=== PATIENT | female | born 2000 | race Caucasian/White ===

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

== ENCOUNTER → 2020-03-08 | Outpatient (CLI) | payer OTHER ==
--- NOTE | 2020-03-08 15:25 | US ---
EXAMINATION TYPE: Ultrasound OB <= 14 week transvaginal DATE OF EXAM: 03/08/2020 2:59 PM COMPARISON: NONE CLINICAL HISTORY: 19-year-old female O76 absent heart tones. EXAM PERFORMED: Transvaginal (TV) and Transabdominal (TA) FINDINGS: EXAM MEASUREMENTS: GESTATIONAL AGE / DATING Physician Established: (10 weeks/3 days) EDC: 10/01/2020 Dates by LMP: Unknown Dates by First Scan: This is 1st scan Dates by Current Scan for: (10 weeks/2 days) EDC: 10/02/2020 MATERNAL ANATOMY Uterus: 10.8 x 6.9 x 7.9cm, retroverted Right Ovary: 3.2 x 2.1 x 2.4cm Left Ovary: 3.0 x 2.0 x 1.8cm Post CDS / Adnexa: wnl Presence of free fluid: small amount of free fluid Presence of corpus luteal cyst: not seen Presence of subchorionic bleed: no GESTATION / SURVEY CRL: 3.4cm (10 weeks/2 days). The expanding amnion is noted. Yolk Sac (normal less than 6mm): 4.5mm Heart Rate: 172 bpm, upper limits of normal Rhythm: Normal IUP: Viable IUP Date of LMP: Unknown Beta HcG (if available): Not available at time of exam IMPRESSION: 1. Single live uterine with physician established gestational age of 10 weeks 3 days. Curre nt ultrasound biometry is concordant (10 weeks 2 days) by CRL. 2. Consider short interval follow-up given heart rate at the upper limits of normal (172 BPM). 3. Complete survey recommended at 18-20 weeks.
== END | disposition home or self-care (01) ==
LOC: RADUSWWP 14:14
PROVIDERS: ATTEND Obstetrics & Gynecology
DX: O76 Abnormality in fetal heart rate and rhythm complicating labor and delivery (principal); Z3A.10 10 weeks gestation of pregnancy
CPT/HCPCS: 76801; 76817

== ENCOUNTER 2020-03-20 16:43 | Emergency (ER) | payer OTHER ==
--- NOTE | 2020-03-20 17:53 | ED ---
Female Urogenital HPI - General Chief complaint: Vaginal Bleeding Stated complaint: 11 wks preg/vaginal bleeding Source: patient Mode of arrival: ambulatory Limitations: no limitations - History of Present Illness Initial comments: Patient is a 19-year-old female presenting to the emergency Department with complaints of vaginal bleeding that started today. Patient is currently 11-12 weeks . . FISH HATCHERY MANAGER is Dr. Malone. Patient denies any abdominal pain, no abdominal cramping. She states she's been having to wear a pad secondary to the bleeding. She states it is right red in nature. She denies any recent fever or chills. She states she did get treated for UTI a few weeks ago but feels like it cleared up. She denies any chest pain or shortness of breath, no cough. She has no further complaints at this time. On arrival to the ER, her vital signs are stable. Last Menstrual Period: 12/21/19 - Related Data Home Medications Medication Instructions Recorded Confirmed Acetaminophen Tab [Tylenol] 650 mg PO Q4H PRN 03/20/20 03/20/20 Albuterol Sulfate [Proair Hfa] 2 puff INHALATION RT-Q6H PRN 03/20/20 03/20/20 Gummy 1 tab PO BID 03/20/20 03/20/20 Previous Rx's Medication Instructions Recorded Cephalexin [Keflex] 500 mg PO BID 5 Days #10 cap 03/20/20 Allergies Allergy/AdvReac Type Severity Reaction Status Date / Time divalproex sodium Allergy Anaphylaxis Verified 03/20/20 18:29 [From Depakote] Review of Systems ROS Statement: Those systems with pertinent positive or pertinent negative responses have been documented in the HPI. ROS Other: All systems not noted in ROS Statement are negative. Past Medical History Past Medical History: No Reported History Additional Past Medical History / Comment(s): bipolar disorder, ADHD, OCD History of Any Multi-Drug Resistant Organisms: None Reported Past Surgical History: Adenoidectomy, Ear Surgery, Tonsillectomy Past Anesthesia/Blood Transfusion Reactions: No Reported Reaction Past Psychological History: ADD/ADHD, Bipolar Smoking Status: Never smoker Past Alcohol Use History: None Reported Past Drug Use History: None Reported General Exam - General Exam Comments Initial Comments: GENERAL: Patient is well-developed and well-nourished. Patient is nontoxic and in no acute distress. HEAD: Atraumatic, normocephalic. EYES: Pupils equal round and reactive to light, extraocular movements intact, sclera anicteric, conjunctiva are normal. Eyelids were unremarkable. ENT: TMs normal, nares patent, oropharynx clear without exudates. Moist mucous membranes. NECK: Normal range of motion, supple without lymphadenopathy or JVD. LUNGS: Unlabored respirations. Breath sounds clear to auscultation bilaterally and equal. No wheezes rales or rhonchi. HEART: Regular rate and rhythm without murmurs, rubs or gallops. ABDOMEN: Soft, nontender, normoactive bowel sounds. No guarding, no rebound. No masses appreciated. MUSCULOSKELETAL: Normal extremities with adequate strength and normal range of motion, no pitting or edema. No clubbing or cyanosis. NEUROLOGICAL: Patient is alert and oriented x 3. Motor and sensory are also intact. Cranial nerves II through XII grossly intact. Symmetrical smile. Normal speech, normal gait. PSYCH: Normal mood, normal affect. SKIN: Warm, Dry, normal turgor, no rashes or lesions noted. Limitations: no limitations External exam: Present: normal external exam Speculum exam: Present: vaginal bleeding (Very minimal blood present in the vagina, no active bleeding.) By manual exam: Present: normal by manual exam Course Vital Signs 03/20/20 16:48 Temperature 97.9 F Pulse Rate 102 H Respiratory 20 Rate Blood Pressure 129/69 O2 Sat by Pulse 100 Oximetry Medical Decision Making - Medical Decision Making Patient is a 19-year-old female, currently 11-12 weeks , presenting with some mild vaginal bleeding that started today. , FISH HATCHERY MANAGER is Dr. Malone. No abdominal pain or cramping. No fever or chills. Her vital signs are stable. On exam, she does have some very mild amount of blood in the vaginal vault, no active bleeding. Urine shows 2+ ketones, large amount of blood, 59 WBCs, large amount leukocyte esterase and rare bacteria. Urine culture is pending. Ultrasound today shows gestational age is 12 weeks, no complicating process seen, heart rate is normal at 158. Patient's blood type is A+. I discussed these findings with the patient. She'll be started on Keflex for UTI. Patient is stable for discharge. She'll follow-up with her FISH HATCHERY MANAGER. Patient is in agreement with this plan of care. Case discussed with Dr. Sher. - Lab Data Lab Results 03/20/20 03/20/20 Range/Units 17:50 17:50 Urine Color Yellow Urine Appearance Cloudy H (Clear) Urine pH 6.0 (5.0-8.0) Ur Specific [place] 1.038 H (1.001-1.035) Urine Protein 1+ H (Negative) Urine Glucose (UA) Negative (Negative) Urine Ketones 2+ H (Negative) Urine Blood Large H (Negative) Urine Nitrite Negative (Negative) Urine Bilirubin Negative (Negative) Urine Urobilinogen <2.0 (<2.0) mg/dL Ur Leukocyte Esterase Large H (Negative) Urine RBC >182 H (0-5) /hpf Urine WBC 59 H (0-5) /hpf Ur Squamous Epith Cells 3 (0-4) /hpf Urine Bacteria Rare H (None) /hpf Urine Mucus Many H (None) /hpf Blood Type A Positive Blood Type Recheck No Previous Record Bld Type Recheck Status [facility] ONLY Disposition Clinical Impression: Vaginal bleeding during , UTI (urinary tract infection) during Disposition: HOME SELF-CARE Condition: Stable Instructions (If sedation given, give patient instructions): Urinary Tract Infection in (ED) Additional Instructions: Please return to the Emergency Department if symptoms worsen or any other concerns. Take antibiotic as prescribed. Finish entire course. Please be sure to drink plenty of fluids. Follow-up with your FISH HATCHERY MANAGER. Prescriptions: Cephalexin [Keflex] 500 mg PO BID 5 Days #10 cap Is patient prescribed a controlled substance at d/c from ED?: No Referrals: Arian Menard DO [Primary Care Provider] - 1-2 days Rob Malone DO [Doctor of Osteopathic Medicine] - 1-2 days
[2020-03-20 18:26] LABS: Appearance,Urine Cloudy (Clear); Bacteria,Urine Rare /hpf; Bilirubin,Urine Negative (Negative); Blood,Urine Large (Negative); Color,Urine Yellow; Glucose,Urine (UA) Negative (Negative); Ketones,Urine 2+ (Negative); Leukocyte Esterase,Urine Large (Negative); Mucus,Urine Many /hpf; Nitrite,Urine Negative (Negative); Protein,Urine 1+ (Negative); RBC,Urine >182 /hpf (0-5); Specific Gravity,Urine 1.038 (1.001-1.035); Squamous Epithelial Cell,Urine 3 /hpf (0-4); Urobilinogen,Urine <2.0 mg/dL (<2.0); WBC,Urine 59 /hpf (0-5)
--- NOTE | 2020-03-20 18:50 | US ---
EXAMINATION TYPE: Transabdominal DATE OF EXAM: 03/20/2020 6:39 PM COMPARISON: Recent US CLINICAL HISTORY: vaginal bleeding. Pt states moderate vaginal bleeding that has since lightened up/ Denies pain EXAM PERFORMED: Transabdominal (TA) EXAM MEASUREMENTS: GESTATIONAL AGE / DATING Physician Established: (12 weeks/1 days) EDC: 10/01/2020 Dates by LMP: Unknown Dates by First Scan: (12 weeks/0 days) EDC: 10/02/2020 Dates by Current Scan for: (12 weeks/0 days) EDC: 10/02/2020 MATERNAL ANATOMY Uterus: 11.5 x 7.2 x 8.9 cm Right Ovary: Obscured by overlying bowel gas, appeared wnl on recent previous Left Ovary: Obscured by overlying bowel gas, appeared wnl on recent previous Post CDS / Adnexa: wnl Presence of free fluid: No Presence of subchorionic bleed: No GESTATION / SURVEY CRL: 5.4 cm (12 weeks/0 days) MSD: wnl Heart Rate: 158 bpm Rhythm: Normal IUP: Viable IUP Single, viable IUP/ No abnormality visualized at this time IMPRESSION: The ultrasound gestational age is 12 weeks. No complicating process seen.
[2020-03-20] MEDS ORDERED: CEPHALEXIN 500 MG CAP PO STA (19:00)
[2020-03-20 19:34] VITALS: BP 118/71; PULSE 87; RESP 18; TEMP 98.2
== END 2020-03-20 19:30 | disposition home or self-care (01) ==
LOC: EC 16:43
DX: O20.9 Hemorrhage in early pregnancy, unspecified (principal); O23.41 Unspecified infection of urinary tract in pregnancy, first trimester; Z88.8 Allergy status to other drugs, medicaments and biological substances; Z3A.12 12 weeks gestation of pregnancy; Z90.89 Acquired absence of other organs
CPT/HCPCS: 76801; 81001; 86900; 86901; 87086; 99284

== ENCOUNTER 2020-07-04 12:09 | Outpatient (CLI) | payer OTHER ==
[2020-07-04] MEDS ORDERED: ONDANSETRON 4 MG/2 ML VIAL IVP STA (12:54)
[2020-07-04] MEDS ORDERED: SODIUM CHLORIDE 0.9% 1,000 ML IV ONE (12:54)
[2020-07-04 13:27] LABS: Amorphous Sediment,Urine Occasional /hpf; Appearance,Urine Cloudy (Clear); Bacteria,Urine Many /hpf; Bilirubin,Urine Negative (Negative); Blood,Urine Negative (Negative); Color,Urine Yellow; Glucose,Urine (UA) Negative (Negative); Ketones,Urine Negative (Negative); Leukocyte Esterase,Urine Large (Negative); Mucus,Urine Rare /hpf; Nitrite,Urine Negative (Negative); Protein,Urine Trace (Negative); Specific Gravity,Urine 1.022 (1.001-1.035); Squamous Epithelial Cell,Urine 16 /hpf (0-4); Urobilinogen,Urine <2.0 mg/dL (<2.0); WBC,Urine 4 /hpf (0-5)
[2020-07-04 13:57] VITALS: BP 120/64; PULSE 81; RESP 18; TEMP 98.6
--- NOTE | 2020-07-20 08:09 | P.MSEPDOC ---
Presenting Problems - Arrival Data Date of Arrival on Unit: 07/04/20 Time of Arrival on Unit: 12:09 Mode of Transport: Ambulatory - Complaint OB-Reason for Admission/Chief Complaint: Acute Nausea/Vomiting Comment: pt has been vomiting and nauseous for the last week, Medical History - Information : 1 Para: 0 Term: 0 : 0 Abortions: Spontaneous or Elective: 0 Number of Living Children: 0 - Gestational Age Gestational Age by LIS (wks/days): 27 Weeks and 2 Days - History Complications: Smoker Review of Systems - Review of Systems Constitutional: No problems Breast: No problems ENT: No problems Cardiovascular: No problems Respiratory: No problems Gastrointestinal: No problems Genitourinary: No problems Musculoskeletal: No problems Neurological: No problems Skin: No problems Vital Signs - Temperature Temperature: 98.6 F Temperature Source: Oral - Pulse Left Brachial Pulse Rate: 81 Pulse Assessment Method: Automatic Cuff - Respirations Respiratory Rate: 18 Oxygen Delivery Method: Room Air - Blood Pressure Right Arm Blood Pressure: 120/64 Blood Pressure Mean: 82 Blood Pressure Source: Automatic Cuff Medical Screen Scoring (Pre) - Cervical Exam Dilation: Exam Deferred Effacement: Exam Deferred Membranes: Intact - Uterine Contractions Frequency: N/A Duration: N/A Intensity: N/A - Maternal Vital Signs Maternal Temperature: N/A Maternal Blood Pressure: N/A Signs of Preeclampsia: N/A Maternal Respirations: N/A - Maternal Trauma Maternal Trauma: N/A - Assessment - Baby A Baseline FHR: 130 Heart Rate - NICHD Category: Category I (Normal) = 0 Position: N/A Station: N/A - Total Score - Baby A Total Score - Baby A: 0 - Total Score - Baby B Total Score - Baby B: 0 - Total Score - Baby C Total Score - Baby C: 0 - Level of Risk - Baby A Level of Risk - Baby A: Low (0-5) - Level of Risk - Baby B Level of Risk - Baby B: Low (0-5) - Level of Risk - Baby C Level of Risk - Baby C: Low (0-5) Physician Notification (Pre) - Physician Notified Physician Notified Date: 07/04/20 Physician Notified Time: 13:30 New Order Received: Yes - Notification Comment Comment: ua was obtained, culture ordered, 1 liter of normal saline given, and one dose of zofran, pt discharged home with instructions to follow up with Dr. Malone at [facility] on the 21 of July, small frequent sips of fluid and small frequent meals to help with nausea at home Disposition - Disposition OB Disposition: Triage, Discharge to home, Written follow up instructions reviewed Discharge Date: 07/04/20 Discharge Time: 13:49 I agree with the RN Medical Screening Exam: Yes Case reviewed; plan agreed upon as documented in EMR&OBIX.: Yes Diagnosis: LATE VOMITING OF
== END 2020-07-04 13:49 | disposition home or self-care (01) ==
LOC: FBPOP 12:09
PROVIDERS: ATTEND Obstetrics & Gynecology
DX: O21.2 Late vomiting of pregnancy (principal); O99.332 Smoking (tobacco) complicating pregnancy, second trimester; F17.200 Nicotine dependence, unspecified, uncomplicated; Z3A.27 27 weeks gestation of pregnancy; Z88.8 Allergy status to other drugs, medicaments and biological substances
CPT/HCPCS: 96361; 96374; 81001; 87086; G0463; J2405; 99214

== ENCOUNTER 2020-07-16 21:27 | Outpatient (CLI) | payer OTHER ==
[2020-07-16 21:44] VITALS: BP 122/70; PULSE 93; RESP 16; TEMP 98
[2020-07-16 22:55] LABS: Appearance,Urine Cloudy (Clear); Bacteria,Urine Occasional /hpf; Bilirubin,Urine Negative (Negative); Blood,Urine Negative (Negative); Color,Urine Yellow; Glucose,Urine (UA) Negative (Negative); Hyaline Casts,Urine 1 /lpf (0-2); Ketones,Urine Negative (Negative); Leukocyte Esterase,Urine Large (Negative); Mucus,Urine Few /hpf; Nitrite,Urine Negative (Negative); Protein,Urine Trace (Negative); RBC,Urine 1 /hpf (0-5); Specific Gravity,Urine 1.023 (1.001-1.035); Squamous Epithelial Cell,Urine 5 /hpf (0-4); Urobilinogen,Urine <2.0 mg/dL (<2.0); WBC,Urine 3 /hpf (0-5)
--- NOTE | 2020-07-19 08:33 | P.MSEPDOC ---
Presenting Problems - Arrival Data Date of Arrival on Unit: 07/16/20 Time of Arrival on Unit: 21:27 Mode of Transport: Ambulatory - Complaint OB-Reason for Admission/Chief Complaint: Pain Comment: Patient is having cramping and pink mucous discharge. Patient brought photos Medical History - Information : 1 Para: 0 Term: 0 : 0 Abortions: Spontaneous or Elective: 0 Number of Living Children: 0 - Gestational Age Gestational Age by LIS (wks/days): 29 Weeks and 0 Days Review of Systems - Review of Systems Constitutional: No problems Breast: No problems ENT: No problems Cardiovascular: No problems Respiratory: No problems Gastrointestinal: No problems Genitourinary: No problems Musculoskeletal: No problems Neurological: No problems Skin: No problems Vital Signs - Temperature Temperature: 98.0 F Temperature Source: Oral - Pulse Right Brachial Pulse Rate: 93 Pulse Assessment Method: Automatic Cuff - Respirations Respiratory Rate: 16 Oxygen Delivery Method: Room Air O2 Sat by Pulse Oximetry: 99 - Blood Pressure Right Arm Blood Pressure: 122/70 Blood Pressure Mean: 87 Blood Pressure Source: Automatic Cuff Medical Screen Scoring (Pre) - Cervical Exam Dilation: 0 cm = 0 Membranes: Intact - Uterine Contractions Frequency: N/A Duration: N/A Intensity: N/A - Maternal Vital Signs Maternal Temperature: N/A Maternal Blood Pressure: N/A Signs of Preeclampsia: N/A Maternal Respirations: N/A - Maternal Trauma Maternal Trauma: N/A - Assessment - Baby A Baseline FHR: 135 Heart Rate - NICHD Category: Category I (Normal) = 0 NST: Reactive - Total Score - Baby A Total Score - Baby A: 0 - Total Score - Baby B Total Score - Baby B: 0 - Total Score - Baby C Total Score - Baby C: 0 - Level of Risk - Baby A Level of Risk - Baby A: Low (0-5) - Level of Risk - Baby B Level of Risk - Baby B: Low (0-5) - Level of Risk - Baby C Level of Risk - Baby C: Low (0-5) Physician Notification (Pre) - Physician Notified Physician Notified Date: 07/16/20 Physician Notified Time: 22:04 New Order Received: Yes - Notification Comment Comment: RN spoke with Dr. Gates. RN reported that patient came in with cramping and. pictures of what looks like pink tinged mucous on her underwear that she states happened earlier in the day. RN did a sterile vaginal exam and patient was closed and thick. FFNwas collected. Reactive NST and no contractions on the monitor. Dr. Gates states FFN does not need to be sent but she would like a UA collected and oral hydration. RN reported UA results to Dr. Gates. Dr. Gates states that patient may be. discharged with instructions to follow up with Dr. Malone. Patient advised to stay. hydrated and rest. Patient educated on round ligament pain and kick counts. Disposition - Disposition OB Disposition: Discharge to home Discharge Date: 07/16/20 Discharge Time: 23:30 I agree with the RN Medical Screening Exam: Yes Case reviewed; plan agreed upon as documented in EMR&OBIX.: Yes Diagnosis: SPOTTING COMPLICATING , THIRD TRIMESTER
== END 2020-07-16 23:30 | disposition home or self-care (01) ==
LOC: FBPOP 21:27
PROVIDERS: ATTEND Obstetrics & Gynecology
DX: O26.853 Spotting complicating pregnancy, third trimester (principal); Z3A.29 29 weeks gestation of pregnancy; Z88.8 Allergy status to other drugs, medicaments and biological substances
CPT/HCPCS: 59025; 81001; G0463; 99213

== ENCOUNTER 2020-08-06 12:19 | Outpatient (CLI) | payer OTHER ==
--- NOTE | 2020-08-06 13:59 | US ---
EXAMINATION TYPE: US OB >= 14 wk fetus DATE OF EXAM: 08/06/2020 COMPARISON: US CLINICAL HISTORY: 32 weeks, ?water broke. RADHA/EFW Negative amni sure per RN; ; smokes marijuana i rregularly TECHNIQUE: Transabdominal (TA) GESTATIONAL AGE / DATING Physician Established: (32 weeks/0 days) EDC: 10/01/2020 Dates by LMP: unknown Dates by First Scan: ( 31weeks/6 days) EDC: 10/02/2020 Dates by Current Scan: (31 weeks/4 days) EDC: 10/04/2020 Beta HCG (if available): NA SURVEY IUP: Single PLACENTA: Anterior PREVIA: No Previa RADHA: 14.7 cm Normal CERVICAL LENGTH (transabdominal: norm > 3.0cm): 4.2 cm BIOMETRY PRESENTATION: Vertex LIE: Longitudinal BPD: 8.10 cm 32 weeks / 4 days HC: 29.27 cm 32 weeks / 2 days AC: 27.20 cm 31 weeks / 2 days FL: 6.08 cm 31 weeks / 4 days ESTIMATED WEIGHT IN GRAMS: 1796.0 grams ESTIMATED WEIGHT IN LBS/OZ: 3 lbs. 15 oz. WEIGHT PERCENTAGE BASED ON ESTABLISHED DATES: 26.3% HC/AC: 1.08 Normal FL/AC: 22.35 Normal HEART RATE: 130 bpm RHYTHM: Normal Single, live IUP,(31 weeks/4 days, EDC: 10/04/2020, HR 130bpm. anatomy assessment is not performed. IMPRESSION: Viable 31 week 4 day with a heart rate of 130 bpm. RADHA of 14.1 cm in EFW of 3 lbs. 15 oz.
[2020-08-06 14:10] VITALS: BP 115/59; PULSE 84; RESP 16; TEMP 97.1
--- NOTE | 2020-08-10 07:43 | P.MSEPDOC ---
Presenting Problems - Arrival Data Date of Arrival on Unit: 08/06/20 Time of Arrival on Unit: 12:20 Mode of Transport: Ambulatory - Complaint OB-Reason for Admission/Chief Complaint: Rule Out PROM Comment: leaking since sunday. sent from office with orders Medical History - Information : 4 Para: 0 Term: 0 : 0 Abortions: Spontaneous or Elective: 3 Number of Living Children: 0 - Gestational Age Gestational Age by LIS (wks/days): 32 Weeks and 0 Days - History Complications: Other Review of Systems - Review of Systems Constitutional: No problems Breast: No problems ENT: No problems Cardiovascular: No problems Respiratory: No problems Gastrointestinal: No problems Genitourinary: No problems Musculoskeletal: No problems Neurological: No problems Skin: No problems Vital Signs - Temperature Temperature: 97.1 F Temperature Source: Temporal Artery Scan - Pulse Right Radial Pulse Rate: 84 Pulse Assessment Method: Automatic Cuff - Respirations Respiratory Rate: 16 Oxygen Delivery Method: Room Air - Blood Pressure Right Arm Blood Pressure: 115/59 Blood Pressure Mean: 77 Blood Pressure Source: Automatic Cuff Medical Screen Scoring - Cervical Exam Membranes: Intact - Uterine Contractions Frequency From (mins): 0 - Assessment - Baby A Baseline FHR: 130 Heart Rate - NICHD Category: Category I (Normal) NST: Reactive Physician Notification - Physician Notified Physician Notified Date: 08/06/20 Physician Notified Time: 14:55 Physician: Rob Malone Maternal Triage Index - Maternal Triage Index Presenting for scheduled procedure w/no complaint: No - Stat/Priority 1 Stat Priority 1: No - Urgent/Priority 2 Urgent Priority 2: No - Prompt/Priority 3 Prompt Priority 3: No - Non-Urgent/Priority 4 Non-Urgent Priority 4: No - Scheduled/Requesting Priority 5 Scheduled/Requesting Priority 5: Yes Criteria Met for Priority 5: sent from office with orders Disposition - Disposition OB Disposition: Discharge to home, Written follow up instructions reviewed Discharge Date: 08/06/20 Discharge Time: 13:55 I agree with the RN Medical Screening Exam: Yes Case reviewed; plan agreed upon as documented in EMR&OBIX.: Yes Diagnosis: FALSE LABOR BEFORE 37 COMPLETED WEEKS OF GEST, THIRD TRI
== END 2020-08-06 14:00 | disposition home or self-care (01) ==
LOC: FBPOP 12:19
PROVIDERS: ATTEND Obstetrics & Gynecology
DX: O47.03 False labor before 37 completed weeks of gestation, third trimester (principal); Z3A.31 31 weeks gestation of pregnancy
CPT/HCPCS: 59025; 76805; 84112

== ENCOUNTER 2020-08-13 22:10 | Outpatient (CLI) | payer OTHER ==
[2020-08-13 23:26] LABS: Appearance,Urine Cloudy (Clear); Bilirubin,Urine Negative (Negative); Blood,Urine Negative (Negative); Color,Urine Yellow; Glucose,Urine (UA) Negative (Negative); Ketones,Urine Negative (Negative); Leukocyte Esterase,Urine Large (Negative); Mucus,Urine Occasional /hpf; Nitrite,Urine Negative (Negative); Protein,Urine 1+ (Negative); RBC,Urine 1 /hpf (0-5); Specific Gravity,Urine 1.032 (1.001-1.035); Squamous Epithelial Cell,Urine 6 /hpf (0-4); WBC,Urine 6 /hpf (0-5)
[2020-08-13 23:35] VITALS: BP 130/63; PULSE 91; RESP 16; TEMP 96.9
--- NOTE | 2020-08-14 07:27 | P.MSEPDOC ---
Presenting Problems - Arrival Data Date of Arrival on Unit: 08/13/20 Time of Arrival on Unit: 22:10 Mode of Transport: Ambulatory - Complaint OB-Reason for Admission/Chief Complaint: Vaginal Bleeding, Pain Comment: pt. present to triage due to spotting that started at 3pm oclock today light. pink and started turning dark red at 4pm oclock with mucous, last spotting was noted at. 7pm light pink. patient also states leaking fluid - yellow in color for about a week pt. states she was here in [place] last week and aminisure was negative at that time. patient. states she was started on an ABX for herpes outbreak and took her first dose today- (Valtrex). medication last time and she didnt feel good on the medication, patient took first dose. today and she states she feels dizzy, and dry throat, on the medication. Medical History - Information : 1 Para: 0 Term: 0 : 0 Abortions: Spontaneous or Elective: 0 Number of Living Children: 0 - Gestational Age Gestational Age by LIS (wks/days): 33 Weeks and 0 Days - History Complications: Hx. Substance Abuse Comment: Smokes Marijuana Review of Systems - Review of Systems Constitutional: No problems Breast: No problems ENT: No problems Cardiovascular: No problems Respiratory: No problems Gastrointestinal: No problems Genitourinary: No problems Musculoskeletal: No problems Neurological: No problems Skin: No problems Vital Signs - Temperature Temperature: 96.9 F Temperature Source: Temporal Artery Scan - Pulse Pulse Oximetery Pulse Rate: 91 Pulse Assessment Method: Pulse Oximetry - Respirations Respiratory Rate: 16 Oxygen Delivery Method: Room Air O2 Sat by Pulse Oximetry: 97 - Blood Pressure Right Arm Blood Pressure: 130/63 Blood Pressure Mean: 85 Blood Pressure Source: Automatic Cuff Medical Screen Scoring - Cervical Exam Dilation (cm): 0 Effacement (%): 100 Membranes: Intact - Assessment - Baby A Baseline FHR: 135 Heart Rate - NICHD Category: Category I (Normal) NST: Reactive Physician Notification - Physician Notified Physician Notified Date: 08/13/20 Physician Notified Time: 22:46 Physician: Alysha Gates Order Received: Yes - Notification Comment Comment: orders to check cervix, and collect UA, patient dosnt need to wait for UA results. if closed patient can be discharge home with instructions to drink fluids, patient closed and thick, no spotting noted since present to [facility], UA sent. Maternal Triage Index - Maternal Triage Index Presenting for scheduled procedure w/no complaint: No - Stat/Priority 1 Stat Priority 1: No - Urgent/Priority 2 Urgent Priority 2: No - Prompt/Priority 3 Prompt Priority 3: No - Non-Urgent/Priority 4 Non-Urgent Priority 4: Yes Criteria Met for Priority 4: Dr. Gates paged at 22:46, and Called back at 22:50 Disposition - Disposition OB Disposition: Discharge to home Discharge Date: 08/13/20 Discharge Time: 23:07 I agree with the RN Medical Screening Exam: Yes Case reviewed; plan agreed upon as documented in EMR&OBIX.: Yes Diagnosis: SPOTTING COMPLICATING , THIRD TRIMESTER (No evidence of bleeding noted on exam. Urine culture to be sent.)
== END 2020-08-13 23:07 | disposition home or self-care (01) ==
LOC: FBPOP 22:10
PROVIDERS: ATTEND Obstetrics & Gynecology
DX: O26.853 Spotting complicating pregnancy, third trimester (principal); Z3A.33 33 weeks gestation of pregnancy
CPT/HCPCS: 59025; 84112; 81001; 87086; G0463; 99213

== ENCOUNTER 2020-08-23 19:02 | Outpatient (CLI) | payer OTHER ==
[2020-08-23 20:13] VITALS: BP 124/72; PULSE 83; RESP 16; TEMP 96.4
--- NOTE | 2020-09-10 21:56 | P.MSEPDOC ---
Presenting Problems - Arrival Data Date of Arrival on Unit: 08/23/20 Time of Arrival on Unit: 19:02 Mode of Transport: Wheelchair - Complaint OB-Reason for Admission/Chief Complaint: Rule Out SROM Comment: [place] fluid around 1850 Medical History - Information : 4 Para: 0 Term: 0 : 0 Abortions: Spontaneous or Elective: 0 Number of Living Children: 0 - Gestational Age Gestational Age by LIS (wks/days): 35 Weeks and 0 Days - History Complications: Hx. Substance Abuse Comment: THC- last used 2 months ago per pt Review of Systems - Review of Systems Constitutional: No problems Breast: No problems ENT: No problems Cardiovascular: No problems Respiratory: No problems Gastrointestinal: No problems Genitourinary: No problems Musculoskeletal: No problems Neurological: No problems Skin: No problems Vital Signs - Temperature Temperature: 96.4 F Temperature Source: Temporal Artery Scan - Pulse Right Brachial Pulse Rate: 83 Pulse Assessment Method: Automatic Cuff - Respirations Respiratory Rate: 16 Oxygen Delivery Method: Room Air O2 Sat by Pulse Oximetry: 98 - Blood Pressure Right Arm Blood Pressure: 124/72 Blood Pressure Mean: 89 Blood Pressure Source: Automatic Cuff Medical Screen Scoring - Cervical Exam Dilation (cm): 0 Effacement (%): 0 Station: -2 Membranes: Intact - Uterine Contractions Frequency From (mins): 0 Frequency To (mins): 0 Duration From (seconds): 0 Duration To (seconds): 0 Intensity: Absent Resting: Soft to palpation - Assessment - Baby A Baseline FHR: 115 Heart Rate - NICHD Category: Category I (Normal) NST: Reactive Physician Notification - Physician Notified Physician Notified Date: 08/23/20 Physician Notified Time: 19:52 Physician: Maeve Araujo New Order Received: Yes - Notification Comment Comment: Reported vag exam closed/thick/high, pt closed in office today, no contractions and negative amnisure. Orders to d/c pt home, follow up with Dr. Malone as planned 08/31/20 Maternal Triage Index - Maternal Triage Index Presenting for scheduled procedure w/no complaint: No - Stat/Priority 1 Stat Priority 1: No - Urgent/Priority 2 Urgent Priority 2: No - Prompt/Priority 3 Prompt Priority 3: Yes Criteria Met for Priority 3: c/o SROM Disposition - Disposition OB Disposition: Discharge to home, Written follow up instructions reviewed Discharge Date: 08/23/20 Discharge Time: 19:55 I agree with the RN Medical Screening Exam: Yes Case reviewed; plan agreed upon as documented in EMR&OBIX.: Yes Diagnosis: FALSE LABOR BEFORE 37 COMPLETED WEEKS OF GEST, THIRD TRI
== END 2020-08-23 19:55 | disposition home or self-care (01) ==
LOC: FBPOP 19:02
PROVIDERS: ATTEND Obstetrics & Gynecology
DX: O47.03 False labor before 37 completed weeks of gestation, third trimester (principal); Z3A.35 35 weeks gestation of pregnancy; Z88.8 Allergy status to other drugs, medicaments and biological substances
CPT/HCPCS: 59025; 84112; G0463; 99213

== ENCOUNTER 2020-08-25 11:16 | Outpatient (CLI) | payer OTHER ==
[2020-08-25 12:37] VITALS: BP 118/73; PULSE 81; RESP 14; TEMP 97.6
--- NOTE | 2020-09-01 17:41 | P.MSEPDOC ---
Presenting Problems - Arrival Data Date of Arrival on Unit: 08/25/20 Time of Arrival on Unit: 11:00 Mode of Transport: Ambulatory - Complaint OB-Reason for Admission/Chief Complaint: Other Comment: cramping through the night Medical History - Information : 4 Para: 0 Term: 0 : 0 Abortions: Spontaneous or Elective: 3 Number of Living Children: 0 - Gestational Age Gestational Age by LIS (wks/days): 35 Weeks and 2 Days Review of Systems - Review of Systems Constitutional: No problems Breast: No problems ENT: No problems Cardiovascular: No problems Respiratory: No problems Gastrointestinal: No problems Genitourinary: No problems Musculoskeletal: No problems Neurological: No problems Skin: No problems Vital Signs - Temperature Temperature: 97.6 F Temperature Source: Temporal Artery Scan - Pulse Right Pulse Rate: 81 Pulse Assessment Method: Auscultation - Respirations Respiratory Rate: 14 Oxygen Delivery Method: Room Air - Blood Pressure Right Arm Blood Pressure: 118/73 Blood Pressure Mean: 88 Blood Pressure Source: Automatic Cuff Physician Notification - Physician Notified Physician Notified Date: 08/25/20 Physician Notified Time: 12:10 Physician: Rob Malone Order Received: Yes - Notification Comment Comment: pt may be discharged home, reported no contractions, reactive nst, positive movement Maternal Triage Index - Maternal Triage Index Presenting for scheduled procedure w/no complaint: No - Stat/Priority 1 Stat Priority 1: No - Urgent/Priority 2 Urgent Priority 2: No - Prompt/Priority 3 Prompt Priority 3: No - Non-Urgent/Priority 4 Non-Urgent Priority 4: Yes Criteria Met for Priority 4: 1210, spoke to james, reported reactive nst, pos itive movement, no contractions tracing, palpated or reported by pt Disposition - Disposition OB Disposition: Discharge to home Discharge Date: 08/25/20 Discharge Time: 12:34 I agree with the RN Medical Screening Exam: Yes Case reviewed; plan agreed upon as documented in EMR&OBIX.: Yes Diagnosis: FALSE LABOR BEFORE 37 COMPLETED WEEKS OF GEST, THIRD TRI
== END 2020-08-25 12:37 | disposition home or self-care (01) ==
LOC: FBPOP 11:16
PROVIDERS: ATTEND Obstetrics & Gynecology
DX: O47.03 False labor before 37 completed weeks of gestation, third trimester (principal); Z3A.35 35 weeks gestation of pregnancy
CPT/HCPCS: 99213

== ENCOUNTER 2020-08-26 20:28 | Observation (INO) | payer OTHER ==
[2020-08-26] MEDS ORDERED: ACETAMINOPHEN TAB 325 MG TAB PO PRN (23:07)
[2020-08-26] MEDS ORDERED: ALBUTEROL NEBULIZED 2.5 MG/3 ML INHALATION PRN (23:11)
[2020-08-26] MEDS: LACTATED RINGERS 1,000 ML IV SCH (23:15)
--- NOTE | 2020-08-26 23:26 | P.HPOB ---
History of Present Illness H&P Date: 08/26/20 Chief Complaint: Vaginal bleeding This is a 19-year-old female 4 para 0 with an estimated date of confinement of 09/27/2020, estimated gestational age of 35-3/7 weeks, who presented to labor and delivery with complaints of a gush of what looked like fluid or urine followed by some bright red vaginal bleeding. She states she has been feeling contractions for the last couple days. She stated she did come to triage yesterday and was told that she was closed. care has been with Dr. Malone. Obstetrical history: . Gynecologic history: It appears that she has been treated for Trichomonas during this . She states that she was told that she has herpes type II through a blood test but has never had an outbreak. She did apparently start acyclovir during this but stopped it due to dizziness. labs: Hepatitis B surface antigen-negative RPR-nonreactive Rubella-nonimmune Blood type-A+ Antibody screen-negative HIV-nonreactive Hemoglobin-13.4 Toxoplasma-positive IgG but negative IgM Random glucose-65 Obstetrical ultrasound-normal anatomy GC/Chlamydia-negative Trichomonas-initially positive but negative whiff test of cure. 1 hour Glucola-96 Review of Systems Constitutional: Denies chills, Denies fever Eyes: denies blurred vision, denies pain Ears, nose, mouth and throat: Denies headache, Denies sore throat Cardiovascular: Denies chest pain, Denies shortness of breath Respiratory: Denies cough Gastrointestinal: Reports abdominal pain (Contractions) Genitourinary: Reports abnormal vaginal bleeding, Reports Integumentary: Denies pruritus, Denies rash Neurological: Denies numbness, Denies weakness Psychiatric: Reports difficulty concentrating Past Medical History Past Medical History: No Reported History Additional Past Medical History / Comment(s): bipolar disorder, ADHD, OCD History of Any Multi-Drug Resistant Organisms: None Reported Past Surgical History: Adenoidectomy, Ear Surgery, Tonsillectomy Past Anesthesia/Blood Transfusion Reactions: No Reported Reaction Past Psychological History: ADD/ADHD, Bipolar Smoking Status: Former smoker Past Alcohol Use History: None Reported Past Drug Use History: Marijuana (States she last used it 2 months ago.) Medications and Allergies Home Medications Medication Instructions Recorded Confirmed Type Albuterol Sulfate [Proair Hfa] 2 puff INHALATION RT-Q6H PRN 01/23/21 07/01/21 History Gummy 2 tab PO BID 03/20/20 08/26/20 History Omeprazole 20 mg PO DAILY 08/13/20 08/26/20 History Allergies Allergy/AdvReac Type Severity Reaction Status Date / Time divalproex sodium Allergy Anaphylaxis Verified 08/26/20 20:37 [From Depakote] Exam Osteopathic Statement: *. No significant issues noted on an osteopathic structural exam other than those noted in the History and Physical/Consult. Intake and Output 08/26/20 08/26/20 08/27/20 14:59 22:59 06:59 Other: Weight 81.193 kg Gen.: Well-developed well-nourished female in no acute distress HEENT: Within normal limits Heart: Regular rate and rhythm Lungs: Clear to auscultation bilaterally Abdomen: Cervix: Closed/70%/-2 station. A small amount of bright red blood is noted on the glove and the pad placed on her though show some saturation but no clots. heart tones: Reactive, category 1 Contractions: Rare. Some irritability is noted on the monitor. Extremities: Negative Homans Assessment and Plan (1) 35 weeks gestation of Current Visit: Yes Status: Acute Code(s): Z3A.35 - 35 WEEKS GESTATION OF SNOMED Code(s): 90437446 (2) Antepartum bleeding, third trimester Current Visit: Yes Status: Acute Code(s): O46.93 - ANTEPARTUM HEMORRHAGE, UNSPECIFIED, THIRD TRIMESTER SNOMED Code(s): 314379190 Plan: Will admit for observation. We'll obtain obstetrical ultrasound. I will give her late-term steroids due to contractions and bleeding. It may be possible that she is in early labor, however I do not feel comfortable sending her home with bleeding. If any change in status or maternal status, may need emergent section.
[2020-08-26 23:56] LABS: Appearance,Urine Clear (Clear); Bacteria,Urine Occasional /hpf; Bilirubin,Urine Negative (Negative); Blood,Urine Large (Negative); Color,Urine Light Yellow; Glucose,Urine (UA) Negative (Negative); Hyaline Casts,Urine 1 /lpf (0-2); Ketones,Urine Negative (Negative); Leukocyte Esterase,Urine Large (Negative); Nitrite,Urine Negative (Negative); Protein,Urine Negative (Negative); RBC,Urine <1 /hpf (0-5); Specific Gravity,Urine 1.006 (1.001-1.035); Squamous Epithelial Cell,Urine 5 /hpf (0-4); Urobilinogen,Urine <2.0 mg/dL (<2.0); WBC,Urine 11 /hpf (0-5)
[2020-08-26 23:58] LABS: Basophils # (A) 0.1 k/uL (0-0.2); Basophils % (A) 0 %; Eosinophils # (A) 0.5 k/uL (0-0.7); Eosinophils % (A) 4 %; HCT 33.3 % (34.0-46.0); HGB 11.9 gm/dL (11.4-16.0); Lymphocytes # (A) 2.6 k/uL (1.0-4.8); Lymphocytes % (A) 23 %; MCH 32.6 pg (25.0-35.0); MCHC 35.8 g/dL (31.0-37.0); MCV 91.3 fL (80.0-100.0); Mean Platelet Volume 8.5; Monocytes # (A) 0.6 k/uL (0-1.0); Monocytes % (A) 5 %; Neutrophils # (A) 7.4 k/uL (1.3-7.7); Neutrophils % (A) 66 %; Platelet Count 182 k/uL (150-450); RBC 3.64 m/uL (3.80-5.40); RDW 12.6 % (11.5-15.5); WBC 11.2 k/uL (4.0-11.0)
[2020-08-27 00:25] LABS: Amphetamine Screen,Urine Not Detected (NotDetected); Barbiturate Screen,Urine Not Detected (NotDetected); Benzodiazepines Screen,Urine Not Detected (NotDetected); Cocaine Screen,Urine Not Detected (NotDetected); Methadone Screen, Urine Not Detected (NotDetected); Opiate Screen,Urine Not Detected (NotDetected); Oxycodone Screen, Urine Not Detected (NotDetected); Phencyclidine Screen,Urine Not Detected (NotDetected); Tricyclic Antidepressant,Urine Not Detected (NotDetected); Urn Cannabinoid Scrn Not Detected (NotDetected)
--- NOTE | 2020-08-27 00:31 | US ---
EXAMINATION TYPE: US OB >= 14 wk fetus DATE OF EXAM: 08/27/2020 COMPARISON: US CLINICAL HISTORY: BleedingBleeding. A3. Hx 3 miscarriages. TECHNIQUE: Transabdominal (TA) GESTATIONAL AGE / DATING Physician Established: (34 weeks/6 days) EDC: 10/01/2020 Dates by LMP: Unknown. Dates by First Scan: (34 weeks/5 days) EDC: 10/02/2020 Dates by Current Scan: (34 weeks/2 days) EDC: 10/05/2020 SURVEY IUP: Single PLACENTA: Anterior. Complex area seen within placenta measurin.2 x 1.5 x 1.0 cm. PREVIA: No Previa seen. RADHA: 14.25 cm Normal CERVICAL LENGTH (transabdominal: norm > 3.0cm): Not well seen. No transvaginal per RN Chanel. BIOMETRY PRESENTATION: Vertex LIE: Longitudinal BPD: 8.28 cm 33 weeks / 2 days HC: 31.46 cm 35 weeks / 2 days AC: 30.51 cm 34 weeks / 3 days FL: 6.75 cm 34 weeks / 5 days ESTIMATED WEIGHT IN GRAMS: 2444 grams ESTIMATED WEIGHT IN LBS/OZ: 5 lbs. 6 oz. WEIGHT PERCENTAGE BASED ON ESTABLISHED DATES: 35.5% HC/AC: 1.03 Normal FL/AC: 22.11 Normal HEART RATE: 128 bpm RHYTHM: Normal *Limited head measurements due to low position. IMPRESSION: The ultrasound gestational age is 34 weeks and 2 days. There is satisfactory growth compared to old e xam of 03/20/2020. No complicating process seen.
[2020-08-27] MEDS: BETAMET ACET-BETAMETH SOD PHOS 6 MG/ML MDV IM SCH (01:01)
[2020-08-27] MEDS: LACTATED RINGERS 1,000 ML IV SCH ×2 (03:43→12:45)
[2020-08-27] MEDS: CALCIUM CARBONATE 500 MG CHEWABLE PO PRN ×2 (09:07→17:41)
[2020-08-27] MEDS: PANTOPRAZOLE 40 MG TABLET PO SCH (09:07)
[2020-08-27] MEDS: PRENATAL VIT-IRON-FOLIC ACID 1 EACH CAP PO SCH (11:09)
--- NOTE | 2020-08-27 12:54 | P.PN ---
Progress Note - Text Progress Note Date: 08/27/20 A she is seen and evaluated. She is laying in bed comfortably. She is tolerating a diet. She relates that the bleeding has now stopped and maybe there is just a slight pink discharge. Ultrasound reviewed. Spoke with Dr. Gates who admitted her last night and had full report given. At this time is a category 1 tracing and her biggest complaint is that she says she is cramping and feeling pressure but the cramping that she is feeling seems to only be the movement of the baby. She relates that when the baby kicks her causes her pain. Otherwise there is no contractions and no evidence for labor. We'll plan to repeat her steroid dose at 4 AM monitor the bleeding through the night and if everything is stable try and discharge her home tomorrow.
[2020-08-27] MEDS: MAG HYDROX/AL HYDROX/SIMETH 30 ML CUP PO PRN (21:35)
[2020-08-28] MEDS: BETAMET ACET-BETAMETH SOD PHOS 6 MG/ML MDV IM SCH (04:54)
[2020-08-28] MEDS: MAG HYDROX/AL HYDROX/SIMETH 30 ML CUP PO PRN (04:54)
[2020-08-28 09:07] VITALS: BP 112/58; PULSE 84; RESP 15; TEMP 97.3
[2020-08-28] MEDS: PRENATAL VIT-IRON-FOLIC ACID 1 EACH CAP PO SCH (09:13)
[2020-08-28] MEDS: PANTOPRAZOLE 40 MG TABLET PO SCH (09:13)
[2020-08-28] MEDS: LACTATED RINGERS 1,000 ML IV SCH (09:15)
--- NOTE | 2020-08-28 12:44 | P.DS ---
Providers Date of admission: 08/26/20 23:46 Expected date of discharge: 08/28/20 Attending physician: Rob Malone Primary care physician: Stated None Hospital Course: Patient is doing very well this morning. She relates that virtually all of her pain is gone and she is not bleeding. It is still unclear what the source of bleeding was. She does relate that she had sex within the 24th 40 hours prior to having the bleeding but nothing immediately prior to completing. We are going to discharge her home on modified bed rest for the next few days until she is reevaluated by me on August 31. Discharged shortly thoroughly reviewed and all questions were answered for her. Vital signs are stable and afebrile. Her heart is regular, lungs clear, extremities without pain. Abdomen soft. No signs or symptoms of labor at this time. Category 1 tracing has been noted and we are not seeing any contractions on the monitor. All the questions are answered for her at this time. Patient Condition at Discharge: Good Plan - Discharge Summary New Discharge Prescriptions: No Action Albuterol Sulfate [Proair Hfa] 2 puff INHALATION RT-Q6H PRN PRN Reason: Shortness Of Breath Gummy 2 tab PO BID Omeprazole 20 mg PO DAILY Discharge Medication List Albuterol Sulfate [Proair Hfa] 2 puff INHALATION RT-Q6H PRN 03/20/20 [History] Gummy 2 tab PO BID 03/20/20 [History] Omeprazole 20 mg PO DAILY 08/13/20 [History] Follow up Appointment(s)/Referral(s): Rob Malone DO [Doctor of Osteopathic Medicine] - 1 Week Patient Instructions/Handouts: Labor (ED) Activity/Diet/Wound Care/Special Instructions: Modified bedrest at home for the next few days. She has an appointment with me on the . Return with any contractions, decreased movement, significant pain, or vaginal bleeding. We will plan very close follow-up care with her for the next couple of weeks as she is getting closer to her due date. Discharge Disposition: HOME SELF-CARE
== END 2020-08-28 12:51 | disposition home or self-care (01) ==
LOC: FBPOP 20:28 → 4FBP 23:46
PROVIDERS: ADMIT Obstetrics & Gynecology; ATTEND Obstetrics & Gynecology
DX: O46.93 Antepartum hemorrhage, unspecified, third trimester (principal); Z3A.35 35 weeks gestation of pregnancy; O98.319 Other infections with a predominantly sexual mode of transmission complicating pregnancy, unspecified trimester; A59.9 Trichomoniasis, unspecified; B00.9 Herpesviral infection, unspecified; F31.9 Bipolar disorder, unspecified; F90.9 Attention-deficit hyperactivity disorder, unspecified type; F42.9 Obsessive-compulsive disorder, unspecified; O99.343 Other mental disorders complicating pregnancy, third trimester; Z87.891 Personal history of nicotine dependence; Z88.8 Allergy status to other drugs, medicaments and biological substances; Z79.899 Other long term (current) drug therapy
CPT/HCPCS: 59025; 96361 ×2; 96374; 96376; 84112; 85025; 81001; 80306; 76805; G0463; G0378 ×3; S0197; J0702 ×2; 99215

== ENCOUNTER 2020-09-04 | Outpatient (CLI) | payer OTHER | END 2020-09-04 16:58 | disposition home or self-care (01) ==

== ENCOUNTER 2020-09-11 22:10 | Outpatient (CLI) | payer OTHER ==
[2020-09-12 00:25] VITALS: BP 133/79; PULSE 100; RESP 18; TEMP 96.9
--- NOTE | 2020-10-11 08:27 | P.MSEPDOC ---
Presenting Problems - Arrival Data Date of Arrival on Unit: 09/11/20 Time of Arrival on Unit: 22:10 Mode of Transport: Ambulatory - Complaint OB-Reason for Admission/Chief Complaint: Rule Out SROM Comment: possible ROM at 2200, contractions, and vaginal bleeding Medical History - Information : 4 Para: 0 Term: 0 : 0 Abortions: Spontaneous or Elective: 0 Number of Living Children: 0 - Gestational Age Gestational Age by LIS (wks/days): 37 Weeks and 2 Days Review of Systems - Review of Systems Constitutional: No problems Breast: No problems ENT: No problems Cardiovascular: No problems Respiratory: No problems Gastrointestinal: No problems Genitourinary: No problems Musculoskeletal: No problems Neurological: No problems Skin: No problems Vital Signs - Temperature Temperature: 96.9 F Temperature Source: Temporal Artery Scan - Pulse Pulse Oximetery Pulse Rate: 100 Pulse Assessment Method: Pulse Oximetry - Respirations Respiratory Rate: 18 Oxygen Delivery Method: Room Air O2 Sat by Pulse Oximetry: 98 - Blood Pressure Right Arm Blood Pressure: 133/79 Blood Pressure Mean: 97 Blood Pressure Source: Automatic Cuff Medical Screen Scoring - Cervical Exam Dilation (cm): 1 Effacement (%): 0 Station: -3 Membranes: Intact - Uterine Contractions Frequency From (mins): 0 Frequency To (mins): 0 Duration From (seconds): 0 Duration To (seconds): 0 - Assessment - Baby A Baseline FHR: 135 Heart Rate - NICHD Category: Category I (Normal) NST: Reactive Physician Notification - Physician Notified Physician Notified Date: 09/11/20 Physician Notified Time: 22:45 Physician: Maeve Araujo New Order Received: Yes - Notification Comment Comment: Dr. Araujo called. Report given on maternal and status, complaints of. possible ROM, contractions, and vaginal bleeding. Amnisure negative, irregular. contractions noted (pt mainly complains of back pain), and a small amount of vaginal. bleeding noted. SVE 1/thick/high. FHTs 150, moderate variability, accels, and possibly 1. variable. Orders to monitor FHR for another 30mins and if FHTs remains reactive, pt can. be discharged home. Maternal Triage Index - Maternal Triage Index Presenting for scheduled procedure w/no complaint: No - Stat/Priority 1 Stat Priority 1: No - Urgent/Priority 2 Urgent Priority 2: No - Prompt/Priority 3 Prompt Priority 3: No - Non-Urgent/Priority 4 Non-Urgent Priority 4: Yes Criteria Met for Priority 4: 37 1/7weeks, c/o ROM, contractions, and vaginal bleeding Disposition - Disposition OB Disposition: Discharge to home Discharge Date: 09/11/20 Discharge Time: 23:30 I agree with the RN Medical Screening Exam: Yes Case reviewed; plan agreed upon as documented in EMR&OBIX.: Yes Diagnosis: FALSE LABOR AT OR AFTER 37 COMPLETED WEEKS OF GESTATION
== END 2020-09-11 23:30 | disposition home or self-care (01) ==
LOC: FBPOP 22:10
PROVIDERS: ATTEND Obstetrics & Gynecology
DX: O47.1 False labor at or after 37 completed weeks of gestation (principal); Z3A.37 37 weeks gestation of pregnancy
CPT/HCPCS: 59025; 84112; G0463; 99213

== ENCOUNTER 2020-09-16 20:09 | Inpatient (IN) | payer OTHER ==
--- NOTE | 2020-09-16 21:32 | P.HPOB ---
History of Present Illness H&P Date: 09/16/20 Chief Complaint: Third trimester vaginal bleeding, chronic This is one of multiple triage visits for this 19-year-old 1 para 0 female estimated date of confinement 10/01/2020 estimated gestational age 37-6/7 weeks who presented to the triage this evening with complaints of gush of fluid at home that saturated her pull-ups and also had some vaginal bleeding. Patient states that she's had this bleeding on and off through the . She felt that it was more bright red and copious this evening. care is per Dr. Malone and is also complicated by seizure disorder, STD exposure, substance abuse, and multiple social factors. Evaluation here in triage show some dark red blood without active bleeding. Speculum exam shows no pooling or evidence of amniotic fluid and the amnio sure is negative. heart tones are category 1 without decelerations. Cervix is not appreciably dilated and she is not having any contractions. Her abdomen is soft. Review of Systems Constitutional: Reports as per HPI Genitourinary: Reports abnormal vaginal bleeding, Reports Past Medical History Additional Past Medical History / Comment(s): bipolar disorder, ADHD, OCD, asthma History of Any Multi-Drug Resistant Organisms: None Reported Past Surgical History: Adenoidectomy, Ear Surgery, Tonsillectomy Past Anesthesia/Blood Transfusion Reactions: No Reported Reaction Past Psychological History: ADD/ADHD, Depression, PTSD Smoking Status: Never smoker Past Alcohol Use History: None Reported Past Drug Use History: Marijuana Medications and Allergies Home Medications Medication Instructions Recorded Confirmed Type Albuterol Sulfate [Proair Hfa] 2 puff INHALATION RT-Q6H PRN 03/20/20 09/11/20 History Gummy 2 tab PO BID 03/20/20 09/11/20 History Omeprazole 20 mg PO DAILY 08/13/20 09/11/20 History Allergies Allergy/AdvReac Type Severity Reaction Status Date / Time divalproex sodium Allergy Anaphylaxis Verified 09/11/20 22:17 [From Depakote] Exam - OBG Physical Exam Abdomen: bowel sounds normal, no diffuse tenderness, no bruit present, no guarding noted, no hepatomegaly, no splenomegaly, no mass Vulva: both: normal Vagina: normal moisture (Scant amount of dark red blood) Uterus: enlarged Assessment and Plan Assessment: This is a 19-year-old 1 para 0 female 37-6/7 weeks gestation with persistent third trimester spotting and complaints of leaking fluid. Amnio sure is negative and speculum exam shows no evidence of vaginal fluid therefore it is most likely the patient's pull-ups were filled with urine. Plan is to admit for continuous monitoring, complete obstetrical ultrasound and close observation. If persistent bleeding and then will need to consider proceeding with delivery. (1) 37 or more weeks gestation of Current Visit: Yes Status: Acute Code(s): [id number] - SNOMED Code(s): 38804949 (2) Antepartum bleeding, third trimester Current Visit: No Status: Acute Code(s): O46.93 - ANTEPARTUM HEMORRHAGE, UNSPECIFIED, THIRD TRIMESTER SNOMED Code(s): 640121556
--- NOTE | 2020-09-16 22:01 | US ---
EXAMINATION TYPE: US OB >= 14 wk fetus DATE OF EXAM: 09/16/2020 COMPARISON: 08/26/2020 CLINICAL HISTORY: Third trimester bleeding intermittent vaginal bleeding for 4 weeks TECHNIQUE: Transabdominal (TA) GESTATIONAL AGE / DATING Physician Established: (37 weeks/6 days) EDC: 10/01/20 Dates by LMP: unknown Dates by First Scan: (37 weeks/5 days) EDC: 10/02/20 Dates by Current Scan: (37 weeks/1 days) EDC: 10/06/20 SURVEY IUP: Single PLACENTA: Anterior PREVIA: No Previa RADHA: 14.8 cm Normal CERVICAL LENGTH (transabdominal: norm > 3.0cm): 2.9 cm BIOMETRY PRESENTATION: Vertex LIE: Longitudinal BPD: 9.2 cm 37 weeks / 3 days HC: 32.6 cm 37 weeks / 1 days AC: 33.0 cm 37 weeks / 0 days FL: 7.2 cm 37 weeks / 0 days ESTIMATED WEIGHT IN GRAMS: 3084 grams ESTIMATED WEIGHT IN LBS/OZ: 6 lbs. 13 oz. WEIGHT PERCENTAGE BASED ON ESTABLISHED DATES: 38% HC/AC: 0.99 Normal FL/AC: 22% Normal HEART RATE: 127 bpm RHYTHM: Normal IMPRESSION: Stable examination. Sonographic gestational age 37 weeks 1 day.
[2020-09-16 23:00] LABS: Basophils % (A) 0 %; Eosinophils # (A) 0.3 k/uL (0-0.7); Eosinophils % (A) 3 %; HCT 31.9 % (34.0-46.0); HGB 10.9 gm/dL (11.4-16.0); Lymphocytes # (A) 2.1 k/uL (1.0-4.8); Lymphocytes % (A) 23 %; MCH 31.9 pg (25.0-35.0); MCV 93.7 fL (80.0-100.0); Mean Platelet Volume 9.6; Monocytes # (A) 0.5 k/uL (0-1.0); Monocytes % (A) 6 %; Neutrophils % (A) 66 %; Platelet Count 211 k/uL (150-450); RDW 12.8 % (11.5-15.5)
[2020-09-17] MEDS ORDERED: METHYLERGONOVINE 0.2 MG/ML 1 ML AMP IM PRN (08:49)
[2020-09-17] MEDS ORDERED: CARBOPROST TROMETHAMINE 250 MCG/ML 1 ML AMP IM PRN (08:49)
[2020-09-17] MEDS ORDERED: AMPICILLIN 2,000 MG in SODIUM CHLORIDE 0.9% 100 ML IVPB STA (08:49)
[2020-09-17] MEDS ORDERED: OXYTOCIN 10 UNIT/ML 1 ML VIAL IM PRN (08:49)
[2020-09-17] MEDS ORDERED: LIDOCAINE 0.5% (PF) 5 MG/ML (50 ML SDV) SQ PRN (08:49)
[2020-09-17] MEDS ORDERED: TERBUTALINE 1 MG/ML VIAL SQ PRN (08:49)
[2020-09-17] MEDS ORDERED: FAMOTIDINE 20 MG/2 ML VIAL IV STA (08:54)
[2020-09-17] MEDS ORDERED: LACTATED RINGERS 1,000 ML IV SCH (09:00)
[2020-09-17] MEDS ORDERED: OXYTOCIN 30 UNITS/500 ML NS 30 UNIT in SALINE 1 500ML.BAG IV SCH ×2 (09:00→18:20)
--- NOTE | 2020-09-17 09:01 | P.PN ---
Progress Note - Text Progress Note Date: 09/17/20 Patient seen and evaluated this morning. Overall she is doing well. Her bleeding has slowed dramatically. However 60s have some dark spotting. It is unclear the etiology of her bleeding. Ultrasound reviewed showing no gross findings. We have a category 1 tracing noted with a reactive NST. She is however having some irregular contractions and she is now dilated to 1 cm 60% effaced and -3 station. After discussion with the family we are moving forward with an induction of labor out of abundance of caution with her multiple episodes of bleeding. All questions are answered for otherwise and she is aware that she is slightly early and that there is a potential that her baby could in special care nursery due to lung maturity issues. All the questions are answered for she and her family at this time.
[2020-09-17] MEDS: LACTATED RINGERS 1,000 ML IV SCH ×3 (09:11→20:13)
[2020-09-17] MEDS: BUTORPHANOL 1 MG/ML 1 ML VIAL IV PRN ×2 (11:51→15:16)
[2020-09-17] MEDS ORDERED: AMPICILLIN 1,000 MG in SODIUM CHLORIDE 0.9% 50 ML IVPB SCH (13:00)
[2020-09-17] MEDS ORDERED: CITRIC ACID-SODIUM CITRATE 15 ML CUP PO ONE (14:21)
[2020-09-17] MEDS ORDERED: ONDANSETRON 4 MG/2 ML VIAL IVP STA (14:41)
--- NOTE | 2020-09-17 17:28 | P.PROBDLV ---
Vaginal Delivery Note - . Vaginal Delivery Note: Please see history and physical for details of patient's admission. The patient progressed from 2 cm to complete fairly rapidly after a dose of Stadol. She was given oxytocin induction of labor earlier in the day. She declined epidural. Once reaching complete, she began pushing. 's head came to a crown. With one further push, the 's head delivered across the perineum. At this point the patient stopped pushing and it appeared to be a shoulder dystocia however once we positioned her legs in a Santos position and she resumed pushing, the easily delivered the anterior shoulder followed by the remainder the infant. Nose and mouth were bulb suctioned after was placed on mother's abdomen. Cord was clamped and cut. Cord was noted to be fairly short. Infant was taken to warmer for evaluation. A viable female was noted with scores of 7 at 1 minute and 9 at 5 minutes and infant weight of 6 lbs. 7 oz. Placenta delivered shortly thereafter, intact, with a three-vessel cord. Uterus contracted fairly well after oxytocin was given and uterine massage was carried out. Her bladder was also drained with a straight cath. Inspection of the perineum revealed bilateral vaginal wall sulcus tears extending on the right periurethral area. This area was anesthetized on the right side with 1% lidocaine and then sutured with 3-0 Vicryl suture in a running locked fashion. The left side also extended up onto the left periurethral area however that portion of it was not bleeding. The left sulcus tear was also anesthetized with 1% lidocaine and then sutured with 3-0 Vicryl suture in a running locked fashion. There was a very small first- degree perineal laceration that was also anesthetized with 1% lidocaine and then sutured with 3-0 Vicryl suture in a running locked fashion. Estimated blood loss is approximately 300 mL's. Mother and are in stable condition. Placenta will be sent to pathology due to multiple episodes of bleeding during the third trimester.
[2020-09-17] MEDS ORDERED: BENZOCAINE/MENTHOL SPRAY 1 GM/SPRAY AEROSOL TOPICAL PRN (18:20)
[2020-09-17] MEDS ORDERED: diphenhydrAMINE 50 MG/ML 1 ML VIAL IVP PRN ×2 (18:20)
[2020-09-17] MEDS ORDERED: LANOLIN CREAM 5 GM TUBE TOPICAL PRN (18:20)
[2020-09-17] MEDS ORDERED: diphenhydrAMINE 25 MG CAP PO PRN (18:20)
[2020-09-17] MEDS ORDERED: ZOLPIDEM 5 MG TAB PO PRN (18:20)
[2020-09-17] MEDS ORDERED: HYDROCORTISONE 2.5% RECTAL CREAM 30 GM TUBE RECTAL PRN (18:20)
[2020-09-17] MEDS ORDERED: SIMETHICONE 80 MG CHEWABLE PO PRN (18:20)
[2020-09-17] MEDS ORDERED: MEASLES-MUMPS-RUBELLA VACC/PF 12,500 UNIT/0.5 ML VIAL SQ ONE (18:20)
[2020-09-17] MEDS ORDERED: diphenhydrAMINE 50 MG CAP PO PRN (18:20)
[2020-09-17] MEDS: SENNOSIDES-DOCUSATE SODIUM 1 EACH TAB PO SCH (19:15)
[2020-09-17] MEDS: IBUPROFEN 600 MG TAB PO PRN (19:15)
[2020-09-18] MEDS: IBUPROFEN 600 MG TAB PO PRN ×2 (01:51→10:23)
[2020-09-18 04:28] LABS: Basophils % (A) 0 %; Eosinophils # (A) 0.2 k/uL (0-0.7); Eosinophils % (A) 2 %; HCT 23.9 % (34.0-46.0); Lymphocytes # (A) 2.2 k/uL (1.0-4.8); Lymphocytes % (A) 21 %; MCH 32.3 pg (25.0-35.0); MCHC 33.9 g/dL (31.0-37.0); MCV 95.2 fL (80.0-100.0); Mean Platelet Volume 8.3; Monocytes # (A) 0.7 k/uL (0-1.0); Monocytes % (A) 6 %; Neutrophils # (A) 7.5 k/uL (1.3-7.7); Neutrophils % (A) 70 %; Platelet Count 215 k/uL (150-450); RBC 2.52 m/uL (3.80-5.40); RDW 13.4 % (11.5-15.5); WBC 10.7 k/uL (4.0-11.0)
[2020-09-18 04:34] VITALS: TEMP 98.1
[2020-09-18 04:49] LABS: HGB 8.1 gm/dL (11.4-16.0)
[2020-09-18] MEDS: ACETAMINOPHEN TAB 325 MG TAB PO PRN ×2 (06:19→14:18)
[2020-09-18] MEDS ORDERED: PANTOPRAZOLE 40 MG TABLET PO SCH (07:30)
[2020-09-18 08:35] VITALS: BP 112/61; PULSE 82; RESP 16
[2020-09-18] MEDS: SENNOSIDES-DOCUSATE SODIUM 1 EACH TAB PO SCH (10:24)
--- NOTE | 2020-09-18 12:02 | P.DS ---
Providers Date of admission: 09/16/20 21:10 Expected date of discharge: 09/18/20 Attending physician: Rob Malone Primary care physician: Stated None Hospital Course: This is a 19-year-old female 4 para 0 at 38-6/7 weeks who presented with vaginal bleeding. Since this is happening multiple times during the , the decision was made with Dr. Malone and the patient to proceed with delivery. She underwent oxytocin induction of labor and artificial rupture membranes with clear fluid noted. She delivered vaginally a viable female infant on 09/16/2020 with scores of 7 at 1 minute and 9 at 5 minutes and weight of 6 lbs. 7 oz. Her course has been uncomplicated. She is breast and bottlefeeding. Lochia is decreasing. Pain is well-controlled. Vital signs are stable. Abdomen is soft with fundus firm and nontender. Extremities show negative Homans. Impression is status post vaginal delivery day #1. Plan is to discharge home later today. Routine instructions are given. She is advised to follow-up with Dr. Malone in the office in 6 weeks. She is advised to call the office if she has any further questions or concerns prior to her appointment time. She will be given a prescription for ibuprofen and a breast pump. Procedures: Oxytocin induction of labor. Spontaneous vaginal delivery of a viable female infant on 09/16/2020 Patient Condition at Discharge: Stable Plan - Discharge Summary New Discharge Prescriptions: New Ibuprofen [Motrin] 600 mg PO Q6HR PRN #60 tab PRN Reason: Mild Pain (Scale 1 To 3) Continue Albuterol Sulfate [Proair Hfa] 2 puff INHALATION RT-Q6H PRN PRN Reason: Shortness Of Breath Gummy 2 tab PO BID Omeprazole 20 mg PO DAILY Discharge Medication List Albuterol Sulfate [Proair Hfa] 2 puff INHALATION RT-Q6H PRN 03/20/20 [History] Gummy 2 tab PO BID 03/20/20 [History] Omeprazole 20 mg PO DAILY 08/13/20 [History] Ibuprofen [Motrin] 600 mg PO Q6HR PRN #60 tab 09/18/20 [Rx] Follow up Appointment(s)/Referral(s): Rob Malone DO [Doctor of Osteopathic Medicine] - 6 Weeks Activity/Diet/Wound Care/Special Instructions: Instructions 1. Do not begin any exercise program for 3 weeks. 2. Do not resume sexual relations for 3 weeks or longer if uncomfortable. 3. You may take tub baths or showers at any time. 4. You may use tampons if desired after 3 weeks. 5. Keep the area of episiotomy (stitches) clean and dry. 6. If you are not nursing, wear a good fitting, supportive bra during the day and limit fluid intake for at least 1 week to prevent breast engorgement. 7. Call the office, [phone], within the next week to make appointment for your 6 week checkup if it has not already been made. 8. Report any of the following occurrences to the doctor promptly: a. Heavy, excessive bleeding b. Chills, fever c. Burning or frequency of urination d. Pain or redness and breasts if nursing e. Increasing pain or swelling in episiotomy (stitches). In addition to the above instructions, the following additional should be followed: 1. No heavy lifting or straining (exercising) until after 6 week checkup. 2. Keep abdominal incision clean and dry: You may wear a dressing if more comfortable. 3. Make office appointment for 10 days after going home or as instructed by her doctor. Discharge Disposition: HOME SELF-CARE
== END 2020-09-18 17:30 | disposition home or self-care (01) | DRG 806 ==
LOC: FBPOP 20:09 → 4FBP 21:10
PROVIDERS: ADMIT Obstetrics & Gynecology; ATTEND Obstetrics & Gynecology
PROC: 10E0XZZ Delivery of Products of Conception, External Approach (ICD-10-PCS; principal; 2020-09-17)
PROC: 0HQ9XZZ Repair Perineum Skin, External Approach (ICD-10-PCS; 2020-09-17)
DX: O46.90 Antepartum hemorrhage, unspecified, unspecified trimester (principal); O71.4 Obstetric high vaginal laceration alone; Z37.0 Single live birth; O99.354 Diseases of the nervous system complicating childbirth; O99.344 Other mental disorders complicating childbirth; J45.909 Unspecified asthma, uncomplicated; G40.909 Epilepsy, unspecified, not intractable, without status epilepticus; F90.9 Attention-deficit hyperactivity disorder, unspecified type; F43.10 Post-traumatic stress disorder, unspecified; F42.9 Obsessive-compulsive disorder, unspecified; F31.9 Bipolar disorder, unspecified; O99.52 Diseases of the respiratory system complicating childbirth; Z20.2 Contact with and (suspected) exposure to infections with a predominantly sexual mode of transmission; Z3A.37 37 weeks gestation of pregnancy
CPT/HCPCS: 76805; 85025; 86850; 86900; 86901; 88307

== ENCOUNTER 2021-01-20 19:30 | Emergency (ER) | payer OTHER ==
[2021-01-20 19:34] VITALS: BP 131/83; PULSE 109; RESP 20; TEMP 97.9
--- NOTE | 2021-01-20 19:39 | ED ---
General Adult HPI - General Chief complaint: Extremity Injury, Upper Stated complaint: R wrist injury Time Seen by Provider: 01/20/21 19:37 Source: patient Mode of arrival: ambulatory Limitations: no limitations - History of Present Illness Initial comments: Patient presents to the ED with her fianc for evaluation. Patient states that she was "roughhousing" with her fianc about 30 minutes ago when he accidentally grabbed her wrist "the wrong way", and she felt "something pop" in her right wrist. Patient states that she has had diffuse right wrist pain since then. Patient denies any other injury or site of pain, dyspnea, dizziness, focal neuro deficit, or any other symptoms or complaints. - Related Data Home Medications Medication Instructions Recorded Confirmed Albuterol Sulfate [Proair Hfa] 2 puff INHALATION RT-Q6H PRN 03/20/20 09/16/20 Gummy 2 tab PO BID 03/20/20 09/16/20 Omeprazole 20 mg PO DAILY 08/13/20 09/16/20 Previous Rx's Medication Instructions Recorded Ibuprofen [Motrin] 600 mg PO Q6HR PRN #60 tab 09/18/20 Allergies Allergy/AdvReac Type Severity Reaction Status Date / Time divalproex sodium Allergy Anaphylaxis Verified 01/20/21 19:34 [email or web address] Review of Systems ROS Statement: Those systems with pertinent positive or pertinent negative responses have been documented in the HPI. ROS Other: All systems not noted in ROS Statement are negative. Past Medical History Past Medical History: No Reported History Additional Past Medical History / Comment(s): bipolar disorder, ADHD, OCD, asthma History of Any Multi-Drug Resistant Organisms: None Reported Past Surgical History: Adenoidectomy, Ear Surgery, Tonsillectomy Past Anesthesia/Blood Transfusion Reactions: No Reported Reaction Past Psychological History: ADD/ADHD, Depression, PTSD Smoking Status: Never smoker Past Alcohol Use History: None Reported Past Drug Use History: Marijuana - Past Family History Mother Family Medical History: No Reported History General Exam Limitations: no limitations General appearance: alert, in no apparent distress Head exam: Present: atraumatic, normocephalic Eye exam: Present: normal appearance, EOMI ENT exam: Present: mucous membranes moist Neck exam: Present: other (Trachea is in midline) Respiratory exam: Present: normal lung sounds bilaterally. Absent: respiratory distress, wheezes, rales, rhonchi, stridor Cardiovascular Exam: Present: regular rate, normal rhythm, normal heart sounds, other (Normal radial pulses bilaterally) Extremities exam: Present: other (Diffuse right wrist tenderness; no swelling or deformity is noted; no right snuffbox tenderness; right hand is neurovascularly intact) Neurological exam: Present: alert, oriented X3. Absent: motor sensory deficit Psychiatric exam: Present: normal affect, normal mood Skin exam: Present: warm, dry, intact, normal color Course Vital Signs 01/20/21 19:32 Temperature 97.9 F Pulse Rate 109 H Respiratory 20 Rate Blood Pressure 131/83 O2 Sat by Pulse 98 Oximetry Medical Decision Making - Medical Decision Making Patient and fianc are aware of the patient's negative right wrist x-rays. Patient was counseled about wrist sprains (rest, ice, compression, elevation, analgesics). She was clearly explained return and follow-up instructions, and she feels comfortable with this plan. Will discharge patient home with her fianc at this time. - Radiology Data Radiology results: report reviewed (Right wrist x-rays: Mild soft tissue swelling around the wrist joint without osseous or articular abnormalities.) Disposition Clinical Impression: Right wrist sprain Disposition: HOME SELF-CARE Condition: Stable Instructions (If sedation given, give patient instructions): Wrist Sprain (ED) Additional Instructions: Return to the ER should you develop new or worsening pain or symptoms. Follow up closely with your primary care provider. Is patient prescribed a controlled substance at d/c from ED?: No Referrals: Arian Menard DO [Primary Care Provider] - 1-2 days Time of Disposition: 20:12
--- NOTE | 2021-01-20 20:01 | XR ---
EXAMINATION TYPE: XR wrist complete RT DATE OF EXAM: 01/20/2021 COMPARISON: 05/25/2015 HISTORY: 20 years Female. STUDY INDICATION GIVEN: right wrist injury . TECHNIQUE: PA, oblique, lateral and scaphoid views of the right wrist IMPRESSION: Mild soft tissue swelling around the wrist joint without osseous or articular abnormalities.
== END 2021-01-20 20:13 | disposition home or self-care (01) ==
LOC: EC 19:30
DX: S63.501A Unspecified sprain of right wrist, initial encounter (principal); J45.909 Unspecified asthma, uncomplicated; Z88.8 Allergy status to other drugs, medicaments and biological substances; Z79.51 Long term (current) use of inhaled steroids; X50.0XXA Overexertion from strenuous movement or load, initial encounter; Y92.89 Other specified places as the place of occurrence of the external cause
CPT/HCPCS: 99283

== ENCOUNTER 2021-08-21 15:48 | Emergency (ER) | payer OTHER ==
[2021-08-21 16:53] VITALS: RESP 16
[2021-08-21 17:30] LABS: Appearance,Urine Cloudy (Clear); Bacteria,Urine Rare /hpf; Bilirubin,Urine Negative (Negative); Blood,Urine Negative (Negative); Color,Urine Yellow; Glucose,Urine (UA) Negative (Negative); Ketones,Urine Negative (Negative); Leukocyte Esterase,Urine Large (Negative); Mucus,Urine Many /hpf; Nitrite,Urine Negative (Negative); Protein,Urine 1+ (Negative); RBC,Urine 3 /hpf (0-5); Specific Gravity,Urine 1.031 (1.001-1.035); Squamous Epithelial Cell,Urine 43 /hpf (0-4); Urobilinogen,Urine <2.0 mg/dL (<2.0); WBC,Urine 10 /hpf (0-5)
--- NOTE | 2021-08-21 18:04 | ED ---
General Adult HPI - General Chief complaint: Urogenital Stated complaint: UTI Time Seen by Provider: 08/21/21 18:00 Source: patient Mode of arrival: ambulatory Limitations: no limitations - History of Present Illness Initial comments: Patient presents to the ED with her fianc for evaluation. Patient states that she is (), and she states that she has had symptoms of a UTI for the past week or so. Patient states that she has had burning dysuria and urinary frequency. Patient states that she is unsure how far along she is in her and she is unsure of her last menstrual period. Patient states that she had an [facility], and she states that she was told it showed that she was 11 weeks , but she states that she was also told that her dates may be incorrect. Patient states that she has yet to schedule a first OB opponent. Patient admits to having mild suprapubic abdominal pain as well. Patient denies trauma or injury, fever or chills, headache, focal neuro deficit, chest pain or pressure, dyspnea, dizziness, upper abdominal pain, back or flank pain, hematuria, vaginal bleeding or discharge, or any other symptoms or complaints. - Related Data Home Medications Medication Instructions Recorded Confirmed Albuterol Sulfate [Proair Hfa] 2 puff INHALATION RT-Q6H PRN 03/20/20 09/16/20 Gummy 2 tab PO BID 03/20/20 09/16/20 Omeprazole 20 mg PO DAILY 08/13/20 09/16/20 Previous Rx's Medication Instructions Recorded Ibuprofen [Motrin] 600 mg PO Q6HR PRN #60 tab 09/18/20 Cephalexin [Keflex] 500 mg PO Q12HR 7 Days #14 cap 08/21/21 Allergies Allergy/AdvReac Type Severity Reaction Status Date / Time divalproex sodium Allergy Anaphylaxis Verified 08/21/21 16:53 [From Depakote] Review of Systems ROS Statement: Those systems with pertinent positive or pertinent negative responses have been documented in the HPI. ROS Other: All systems not noted in ROS Statement are negative. Past Medical History Past Medical History: No Reported History Additional Past Medical History / Comment(s): bipolar disorder, ADHD, OCD, asthma History of Any Multi-Drug Resistant Organisms: None Reported Past Surgical History: Adenoidectomy, Ear Surgery, Tonsillectomy Past Anesthesia/Blood Transfusion Reactions: No Reported Reaction Past Psychological History: ADD/ADHD, Depression, PTSD Smoking Status: Never smoker Past Alcohol Use History: None Reported Past Drug Use History: Marijuana - Past Family History Mother Family Medical History: No Reported History General Exam Limitations: no limitations General appearance: alert, in no apparent distress Head exam: Present: atraumatic, normocephalic Eye exam: Present: normal appearance, EOMI ENT exam: Present: mucous membranes moist Respiratory exam: Present: normal lung sounds bilaterally. Absent: respiratory distress, wheezes, rales, rhonchi, stridor Cardiovascular Exam: Present: regular rate, normal rhythm, normal heart sounds, other (Normal radial pulses bilaterally) GI/Abdominal exam: Present: soft, normal bowel sounds, other (Mild suprapubic abdominal tenderness). Absent: distended, guarding, rebound Extremities exam: Absent: tenderness, pedal edema, calf tenderness Back exam: Absent: CVA tenderness (R), CVA tenderness (L) Neurological exam: Present: alert, oriented X3. Absent: motor sensory deficit Psychiatric exam: Present: normal affect, normal mood Skin exam: Present: warm, dry, intact, normal color Course Vital Signs 08/21/21 16:49 Temperature 97.9 F Pulse Rate 69 Respiratory 16 Rate Blood Pressure 110/80 O2 Sat by Pulse 99 Oximetry Medical Decision Making - Medical Decision Making Patient's UA is suggestive of UTI. Will treat the patient with a oral course of Keflex (patient was given her first dose in the ED). Patient was advised to schedule a first OB appointment as soon as possible. Patient was counseled about UTIs, and she was clearly explained return and follow-up instructions. Patient feels comfortable with this plan. - Lab Data Lab Results 08/21/21 08/21/21 Range/Units 17:02 17:02 Urine Color Yellow Urine Appearance Cloudy H (Clear) Urine pH 6.0 (5.0-8.0) Ur Specific [place] 1.031 (1.001-1.035) Urine Protein 1+ H (Negative) Urine Glucose (UA) Negative (Negative) Urine Ketones Negative (Negative) Urine Blood Negative (Negative) Urine Nitrite Negative (Negative) Urine Bilirubin Negative (Negative) Urine Urobilinogen <2.0 (<2.0) mg/dL Ur Leukocyte Esterase Large H (Negative) Urine RBC 3 (0-5) /hpf Urine WBC 10 H (0-5) /hpf Ur Squamous Epith Cells 43 H (0-4) /hpf Urine Bacteria Rare H (None) /hpf Urine Mucus Many H (None) /hpf Urine HCG, Qual Detected (Not Detectd) Disposition Clinical Impression: Urinary tract infection, Disposition: HOME SELF-CARE Condition: Stable Instructions (If sedation given, give patient instructions): (ED), Urinary Tract Infection in Women (ED) Additional Instructions: Return to the ER immediately should he develop new or worsening pain, a fever, vomiting, vaginal bleeding, shortness of breath, feeling dizzy or faint, or new or worsening symptoms. Follow up closely with your primary care provider, as well as your [facility] [employer] [employer] doctor. Prescriptions: Cephalexin [Keflex] 500 mg PO Q12HR 7 Days #14 cap Is patient prescribed a controlled substance at d/c from ED?: No Referrals: None,Stated [Primary Care Provider] - 1-2 days Time of Disposition: 18:23
[2021-08-21] MEDS ORDERED: CEPHALEXIN 500 MG CAP PO STA ×2 (18:16→18:34)
[2021-08-21] MEDS ORDERED: ONDANSETRON ODT 4 MG TAB PO STA (18:34)
[2021-08-21 18:37] VITALS: BP 122/71; PULSE 73
--- NOTE | 2021-08-21 18:47 | ED ---
Medical Decision Making - Lab Data Lab Results 08/21/21 08/21/21 Range/Units 17:02 17:02 Urine Color Yellow Urine Appearance Cloudy H (Clear) Urine pH 6.0 (5.0-8.0) Ur Specific [place] 1.031 (1.001-1.035) Urine Protein 1+ H (Negative) Urine Glucose (UA) Negative (Negative) Urine Ketones Negative (Negative) Urine Blood Negative (Negative) Urine Nitrite Negative (Negative) Urine Bilirubin Negative (Negative) Urine Urobilinogen <2.0 (<2.0) mg/dL Ur Leukocyte Esterase Large H (Negative) Urine RBC 3 (0-5) /hpf Urine WBC 10 H (0-5) /hpf Ur Squamous Epith Cells 43 H (0-4) /hpf Urine Bacteria Rare H (None) /hpf Urine Mucus Many H (None) /hpf Urine HCG, Qual Detected (Not Detectd) Disposition Clinical Impression: Urinary tract infection, Disposition: HOME SELF-CARE Condition: Stable Instructions (If sedation given, give patient instructions): (ED), Urinary Tract Infection in Women (ED) Additional Instructions: Return to the ER immediately should he develop new or worsening pain, a fever, vomiting, vaginal bleeding, shortness of breath, feeling dizzy or faint, or new or worsening symptoms. Follow up closely with your primary care provider, as well as your [facility] CLERK doctor. Prescriptions: Cephalexin [Keflex] 500 mg PO Q12HR 7 Days #14 cap Is patient prescribed a controlled substance at d/c from ED?: No Referrals: None,Stated [Primary Care Provider] - 1-2 days Amol Neri MD [STAFF PHYSICIAN] - 1-2 days Maeve Araujo DO [Doctor of Osteopathic Medicine] - 1-2 days
[2021-08-21 18:52] VITALS: TEMP 97.8
== END 2021-08-21 18:52 | disposition home or self-care (01) ==
LOC: EC 15:48
DX: O23.41 Unspecified infection of urinary tract in pregnancy, first trimester (principal); N39.0 Urinary tract infection, site not specified; Z3A.11 11 weeks gestation of pregnancy; Z88.8 Allergy status to other drugs, medicaments and biological substances
CPT/HCPCS: 81001; 81025; 99284

== ENCOUNTER 2021-09-02 01:37 | Emergency (ER) | payer OTHER ==
--- NOTE | 2021-09-02 04:27 | ED ---
Fall HPI - General Source: patient Mode of arrival: ambulatory <Amol Hou - Last Filed: 09/02/21 04:26> - General Source: patient Limitations: no limitations <Fantasma Garcia - Last Filed: 09/02/21 08:26> - General Chief Complaint: Fall Stated Complaint: fall, abdominal pain, 15 weeks preg Time Seen by Provider: 09/02/21 02:40 - History of Present Illness Initial Comments: Patient is a pleasant 20-year-old female presenting to the emergency department following a fall. Incident occurred around 7:00 last night. Patient fall and did land somewhat on her abdomen. Patient had some mild spotting however that has resolved at this time. Patient originally seen by Dr. Lazo. Patient denies any other injury. Patient has no complaints at this time. Patient did have ultrasound done. Patient is unclear how far along she is. Patient does have history of one previous . (Fantasma Garcia) - Related Data Home Medications Medication Instructions Recorded Confirmed Albuterol Sulfate [Proair Hfa] 2 puff INHALATION RT-Q6H PRN 03/20/20 09/16/20 Gummy 2 tab PO BID 03/20/20 09/16/20 Omeprazole 20 mg PO DAILY 08/13/20 09/16/20 Previous Rx's Medication Instructions Recorded Ibuprofen [Motrin] 600 mg PO Q6HR PRN #60 tab 09/18/20 Cephalexin [Keflex] 500 mg PO Q12HR 7 Days #14 cap 08/21/21 Allergies Allergy/AdvReac Type Severity Reaction Status Date / Time divalproex sodium Allergy Anaphylaxis Verified 09/02/21 01:57 [facility] Review of Systems ROS Other: All systems not noted in ROS Statement are negative. <Amol Hou - Last Filed: 09/02/21 04:26> ROS Other: All systems not noted in ROS Statement are negative. Constitutional: Denies: fever Eyes: Denies: eye pain ENT: Denies: ear pain Respiratory: Denies: cough Cardiovascular: Denies: chest pain Endocrine: Denies: fatigue Gastrointestinal: Reports: as per HPI Genitourinary: Reports: as per HPI Musculoskeletal: Denies: back pain Skin: Denies: rash Neurological: Denies: weakness <Fantasma Garcia - Last Filed: 09/02/21 08:26> ROS Statement: Those systems with pertinent positive or pertinent negative responses have been documented in the HPI. Past Medical History Past Medical History: No Reported History Additional Past Medical History / Comment(s): bipolar disorder, ADHD, OCD, asthma History of Any Multi-Drug Resistant Organisms: None Reported Past Surgical History: Adenoidectomy, Ear Surgery, Tonsillectomy Past Anesthesia/Blood Transfusion Reactions: No Reported Reaction Past Psychological History: ADD/ADHD, Depression, PTSD Smoking Status: Never smoker Past Alcohol Use History: None Reported Past Drug Use History: Marijuana - Past Family History Mother Family Medical History: No Reported History <Amol Hou - Last Filed: 09/02/21 04:26> General Exam Limitations: no limitations <Amol Hou - Last Filed: 09/02/21 04:26> Limitations: no limitations General appearance: alert, in no apparent distress Head exam: Present: normocephalic Eye exam: Present: normal appearance Neck exam: Present: normal inspection. Absent: tenderness Respiratory exam: Present: normal lung sounds bilaterally Cardiovascular Exam: Present: regular rate, normal rhythm GI/Abdominal exam: Present: soft. Absent: distended, tenderness (Including lower abdomen/pelvis region), guarding, rebound, rigid Extremities exam: Present: normal inspection Neurological exam: Present: alert Psychiatric exam: Present: normal affect, normal mood Skin exam: Present: normal color <Fantasma Garcia - Last Filed: 09/02/21 08:26> Course <Fantasma Garcia - Last Filed: 09/02/21 08:26> Vital Signs 09/02/21 09/02/21 09/02/21 01:49 02:57 07:56 Temperature 98.1 F 98.1 F 98.8 F Pulse Rate 92 73 Respiratory 16 18 Rate Blood Pressure 100/72 106/47 O2 Sat by Pulse 100 97 Oximetry - Reevaluation(s) Reevaluation #1: 09/02/21 07:36 Patient recommended having blood work including type and Rh. Patient refuses this. Patient states she knows her blood type is positive. Patient has already had her ultrasound done. (Fantasma Garcia) Medical Decision Making - Radiology Data Radiology results: report reviewed (Ultrasound shows IUP 9 weeks 5 days. Small hypoechoic area suspicious for implantation bleed.) <Fantasma Garcia - Last Filed: 09/02/21 08:26> - Medical Decision Making Patient reevaluated and updated. Patient refuses pelvic exam. Patient updated on need for follow-up. (Fantasma Garcia) Disposition <Amol Hou - Last Filed: 09/02/21 04:26> Is patient prescribed a controlled substance at d/c from ED?: No Time of Disposition: 08:25 <Fantasma Garcia - Last Filed: 09/02/21 08:26> Clinical Impression: Fall, , Threatened miscarriage Disposition: HOME SELF-CARE Condition: Stable Instructions (If sedation given, give patient instructions): Threatened Miscarriage (ED), (ED), Trauma During (ED) Additional Instructions: Please follow-up with [facility]ENSER in the next couple days for recheck, number provided. Return for pain, bleeding, worsening or changing symptoms or any other concerns. Please also follow-up with primary care physician, number also provided Referrals: Julieth Bosch MD [STAFF PHYSICIAN] - 1-2 days Tamia Naidu MD [STAFF PHYSICIAN] - 1-2 days
[2021-09-02 08:00] VITALS: BP 106/47; PULSE 73; RESP 18; TEMP 98.8
--- NOTE | 2021-09-02 08:11 | US ---
EXAMINATION TYPE: Transabdominal DATE OF EXAM: 09/02/2021 7:40 AM COMPARISON: None for this . CLINICAL HISTORY: fall. Fall, cramping. Patient states she had a little spotting. . Positive bet a hCG test. EXAM PERFORMED: Transvaginal (TV) and Transabdominal (TA) EXAM MEASUREMENTS: GESTATIONAL AGE / DATING Physician Established: Not yet established. Dates by LMP: Unknown. Dates by First Scan: This is first scan. Dates by Current Scan for: (9 weeks/5 days) EDC: 04/02/2022 MATERNAL ANATOMY Uterus: 10.2 x 9.3 x 7.5 cm. Anteverted. Right Ovary: 3.2 x 2.3 x 2.3 cm. Area of mixed echogenicity seen: 2.1 x 1.7 x 1.6 cm. Left Ovary: Not visualized. Post CDS / Adnexa: Fluid seen in CDS: 1.9 x 3.3 x 0.7 cm. Presence of free fluid: Fluid seen in CDS. Presence of corpus luteal cyst: Possible within right ovary: Area of mixed echogenicity seen measurin g 2.1 x 1.7 x 1.6 cm. Presence of subchorionic bleed: Hypoechoic, heterogeneous area seen adjacent to the gestational sac: 5.2 x 2.2 x 0.6 cm. GESTATION / SURVEY CRL: 2.91 cm. (9 weeks/5 days) Yolk Sac (normal less than 6mm): 4.5 mm. Heart Rate: 168 bpm Rhythm: Normal IUP: Viable IUP Date of LMP: Unknown per patient. Beta HcG (if available): Not available. Single live intrauterine gestation is confirmed as gestational sac, yolk sac, and pole are pres ent. Anterior to the gestational sac there is a small curvilinear hypoechoic area measuring 1.5 x 1.9 x 2.7 cm suspicious for implantation bleed. Tiny amount of free fluid in pelvic cul-de-sac on transv aginal investigation. Right ovary is seen. Left ovary is not clearly identified. Right ovary has probable 2.1 cm corpus lut eal cyst. IMPRESSION: Single live intrauterine gestation is confirmed. Mean crown-rump length 2.9 cm correspond ing to 9 week 5 day old fetus
[2021-09-02 08:31] LABS: Appearance,Urine Cloudy (Clear); Bilirubin,Urine Negative (Negative); Blood,Urine Negative (Negative); Color,Urine Yellow; Glucose,Urine (UA) Negative (Negative); Ketones,Urine 1+ (Negative); Leukocyte Esterase,Urine Trace (Negative); Mucus,Urine Moderate /hpf; Nitrite,Urine Negative (Negative); Protein,Urine Trace (Negative); RBC,Urine <1 /hpf (0-5); Specific Gravity,Urine 1.021 (1.001-1.035); Squamous Epithelial Cell,Urine 7 /hpf (0-4); Urobilinogen,Urine <2.0 mg/dL (<2.0); WBC,Urine 5 /hpf (0-5)
== END 2021-09-02 08:37 | disposition home or self-care (01) ==
LOC: EC 01:37
DX: O20.0 Threatened abortion (principal); Z88.8 Allergy status to other drugs, medicaments and biological substances; W19.XXXA Unspecified fall, initial encounter; Z3A.11 11 weeks gestation of pregnancy
CPT/HCPCS: 76801; 76817; 81001; 81025; 99284

== ENCOUNTER 2021-09-25 18:05 | Emergency (ER) | payer OTHER ==
[2021-09-25 18:11] VITALS: BP 118/74; PULSE 101; RESP 18; TEMP 98.2
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
[2021-09-25] MEDS ORDERED: ACETAMINOPHEN TAB 500 MG TAB PO STA (20:26)
--- NOTE | 2021-09-25 20:28 | US ---
EXAMINATION TYPE: Transabdominal DATE OF EXAM: 09/25/2021 7:40 PM COMPARISON: US CLINICAL HISTORY: pain. Pain. EXAM PERFORMED: Transabdominal (TA) EXAM MEASUREMENTS: GESTATIONAL AGE / DATING Physician Established: Not yet established. Dates by LMP: Unknown Dates by First Scan: (13 weeks/0 days) EDC: 04/02/2022 Dates by Current Scan for: (13 weeks/4 days) EDC: 03/29/2022 MATERNAL ANATOMY Uterus: 11.9 x 9.0 x 8.3 cm. Anteverted. Right Ovary: 4.3 x 2.3 x 2.2 cm. Left Ovary: 4.0 x 1.7 x 1.5 cm. Post CDS / Adnexa: Appear wnl Presence of free fluid: Not seen Presence of corpus luteal cyst: Not seen Presence of subchorionic bleed: Not seen GESTATION / SURVEY CRL: 7.43 cm (13 weeks/4 days) Yolk Sac (normal less than 6mm): 3.1 mm Heart Rate: 161 bpm Rhythm: Normal IUP: Viable IUP Nuchal Translucency 10-14wks (normal less than 3mm): Not well seen Age Appropriate Anatomy Cord Insertion: Limited, not well seen Limbs: Upper limbs visualized Limited due to position, unable to clearly image lower limbs Calvarium: Visualized Date of LMP: Unknown Beta HcG (if available): Not available IMPRESSION: The ultrasound gestational age is 13 weeks and 4 days.
== END 2021-09-25 21:56 | disposition home or self-care (01) ==
LOC: EC 18:05
DX: O9A.211 Injury, poisoning and certain other consequences of external causes complicating pregnancy, first trimester (principal); R10.9 Unspecified abdominal pain; Z3A.13 13 weeks gestation of pregnancy; Z88.1 Allergy status to other antibiotic agents; Y04.0XXA Assault by unarmed brawl or fight, initial encounter; Y92.009 Unspecified place in unspecified non-institutional (private) residence as the place of occurrence of the external cause
CPT/HCPCS: 76801; 99284

== ENCOUNTER 2021-11-04 17:32 | Emergency (ER) | payer OTHER ==
[2021-11-04] MEDS ORDERED: ACETAMINOPHEN TAB 325 MG TAB PO STA (21:29)
--- NOTE | 2021-11-04 22:07 | XR ---
EXAMINATION TYPE: XR ankle complete LT DATE OF EXAM: 11/04/2021 CLINICAL HISTORY: Pain. TECHNIQUE: Frontal, lateral and oblique images of the left ankle are obtained. COMPARISON: Prior left ankle x-ray report 2016. FINDINGS: There is no acute fracture/dislocation evident in the left ankle. The ankle mortise appea rs within normal limits. No suspicious focal osseous lesion. The overlying soft tissue appears unrem arkable. IMPRESSION: There is no acute fracture or dislocation in the left ankle.
--- NOTE | 2021-11-04 22:32 | ED ---
General Adult HPI - General Chief complaint: Fall Stated complaint: fall - 19 wks Time Seen by Provider: 11/04/21 21:03 Source: patient, RN notes reviewed Mode of arrival: ambulatory Limitations: no limitations - History of Present Illness Initial comments: This is a 20-year-old female who presents to the emergency department for evaluation status post slip and fall down several steps at noon today. States she is 19 weeks and now has scant amount of vaginal bleeding since arrival. Her primary discomfort is her left ankle; states she cannot tolerate weight bearing activity or even gentle palpation. She states she fell onto her abdomen on the steps as well. Has not been seen by an OB-Equity Holder yet this . Denies fever, chills, injury to head/neck/back, chest pain, shortness of breath, nausea, vomiting, diarrhea, or dysuria. - Related Data Home Medications Medication Instructions Recorded Confirmed Albuterol Sulfate [Proair Hfa] 2 puff INHALATION RT-Q6H PRN 03/20/20 09/16/20 Gummy 2 tab PO BID 03/20/20 09/16/20 Omeprazole 20 mg PO DAILY 08/13/20 09/16/20 Previous Rx's Medication Instructions Recorded Ibuprofen [Motrin] 600 mg PO Q6HR PRN #60 tab 09/18/20 Cephalexin [Keflex] 500 mg PO Q12HR 7 Days #14 cap 08/21/21 Cephalexin [Keflex] 500 mg PO TID 5 Days #15 cap 11/05/21 Allergies Allergy/AdvReac Type Severity Reaction Status Date / Time divalproex sodium Allergy Anaphylaxis Verified 11/04/21 18:05 [From Depakote] Review of Systems ROS Statement: Those systems with pertinent positive or pertinent negative responses have been documented in the HPI. ROS Other: All systems not noted in ROS Statement are negative. Past Medical History Past Medical History: Asthma Additional Past Medical History / Comment(s): bipolar disorder, ADHD, OCD, asthma History of Any Multi-Drug Resistant Organisms: None Reported Past Surgical History: Adenoidectomy, Ear Surgery, Tonsillectomy Past Anesthesia/Blood Transfusion Reactions: No Reported Reaction Past Psychological History: ADD/ADHD, Depression, PTSD Smoking Status: Never smoker Past Alcohol Use History: None Reported Past Drug Use History: Marijuana - Past Family History Mother Family Medical History: No Reported History General Exam Limitations: no limitations (Well-developed, well-nourished female in no acute distress. Initial temperature 98.1, pulse 85, respirations 20, blood pressure 110/92, pulse ox 99% on room air.) General appearance: alert, in no apparent distress Head exam: Present: atraumatic, normocephalic, normal inspection Eye exam: Present: normal appearance, PERRL, EOMI. Absent: scleral icterus, conjunctival injection, periorbital swelling Neck exam: Present: normal inspection, full ROM. Absent: tenderness, meningismus, lymphadenopathy Respiratory exam: Present: normal lung sounds bilaterally. Absent: respiratory distress, wheezes, rales, rhonchi, stridor Cardiovascular Exam: Present: regular rate, normal rhythm, normal heart sounds. Absent: systolic murmur, diastolic murmur, rubs, gallop, clicks GI/Abdominal exam: Present: soft, normal bowel sounds. Absent: distended, tenderness, guarding, rebound, rigid Left Lower Leg exam: Present: normal inspection, full ROM. Absent: tenderness, swe lling Ankle exam: Present: normal inspection, tenderness (decreased ROM due to pain; tenderness upon palpation lateral malleolus). Absent: full ROM, swelling, ecchymosis, deformity Neurovascular tendon exam: Present: no vascular compromise Neurological exam: Present: alert, oriented X3 Psychiatric exam: Present: flat affect Skin exam: Present: warm, dry, intact, normal color Course Vital Signs 11/04/21 11/05/21 18:01 00:21 Temperature 98.1 F 98.2 F Pulse Rate 85 80 Respiratory 20 16 Rate Blood Pressure 110/92 112/70 O2 Sat by Pulse 99 98 Oximetry Medical Decision Making - Medical Decision Making 20-year-old female, 19 weeks , presents to the emergency department for evaluation of left ankle pain and suprapubic abdominal pain, onset noon today. States she slipped on a set of carpeted steps and slid down injuring her ankle and falling onto her stomach. Upon exam, patiient is well-appearing and in no acute distress. Vital signs are stable. She complains of marked tenderness with minimal palpation of the left ankle which is not deformed, swollen, or discolored. X-ray was obtained and was negative. Clifton wrap was applied. Given Tylenol for pain with minimal improvement. OB ultrasound was obtained showing presentation 19 weeks 3 days; no placenta abruption or leaking of amniotic fluid. Patient did complain of scant vaginal bleeding though none was visualized. Laboratory studies were obtained and are unremarkable. Urinalysis shows 1+ protein, 2+ ketones, large leukocyte esterase, 148 urine WBCs per HPF. Patient was given TUMS for heartburn and Keflex for UTI. She is instructed to establish care with an SALES LEDGER CLERK as soon as possible. Return parameters were discussed in detail. Patient verbalizes understanding and agrees with this plan. Attending: Ameya. - Lab Data Result diagrams: 11/04/21 22:06 11/04/21 22:06 Lab Results 11/04/21 11/04/21 11/04/21 Range/Units 21:56 22:06 22:06 WBC 8.2 (4.0-11.0) k/uL RBC 3.81 (3.80-5.40) m/uL Hgb 12.1 (11.4-16.0) gm/dL Hct 34.4 (34.0-46.0) % MCV 90.2 (80.0-100.0) fL MCH 31.7 (25.0-35.0) pg MCHC 35.1 (31.0-37.0) g/dL RDW 13.2 (11.5-15.5) % Plt Count 180 (150-450) k/uL MPV 8.1 Neutrophils % 64 % Lymphocytes % 27 % Monocytes % 5 % Eosinophils % 3 % Basophils % 1 % Neutrophils # 5.2 (1.3-7.7) k/uL Lymphocytes # 2.2 (1.0-4.8) k/uL Monocytes # 0.4 (0-1.0) k/uL Eosinophils # 0.3 (0-0.7) k/uL Basophils # 0.0 (0-0.2) k/uL Sodium 135 L (137-145) mmol/L Potassium 3.6 (3.5-5.1) mmol/L Chloride 104 (98-107) mmol/L Carbon Dioxide 21 L (22-30) mmol/L Anion Gap 10 mmol/L BUN 4 L (7-17) mg/dL Creatinine 0.49 L (0.52-1.04) mg/dL Est GFR (CKD-EPI)AfAm >90 (>60 ml/min/1.73 sqM) Est GFR (CKD-EPI)NonAf >90 (>60 ml/min/1.73 sqM) Glucose 78 (74-99) mg/dL Calcium 8.8 (8.4-10.2) mg/dL Total Bilirubin 0.4 (0.2-1.3) mg/dL AST 16 (14-36) U/L ALT 10 (4-34) U/L Alkaline Phosphatase 43 (38-126) U/L Total Protein 6.2 L (6.3-8.2) g/dL Albumin 3.9 (3.5-5.0) g/dL Urine Color Urine Appearance (Clear) Urine pH (5.0-8.0) Ur Specific [place] (1.001-1.035) Urine Protein (Negative) Urine Glucose (UA) (Negative) Urine Ketones (Negative) Urine Blood (Negative) Urine Nitrite (Negative) Urine Bilirubin (Negative) Urine Urobilinogen (<2.0) mg/dL Ur Leukocyte Esterase (Negative) Urine RBC (0-5) /hpf Urine WBC (0-5) /hpf Ur Squamous Epith Cells (0-4) /hpf Urine Bacteria (None) /hpf Urine Mucus (None) /hpf Blood Type A Positive Blood Type Recheck A Pos Bld Type Recheck Status No 11/05/21 Range/Units 00:15 WBC (4.0-11.0) k/uL RBC (3.80-5.40) m/uL Hgb (11.4-16.0) gm/dL Hct (34.0-46.0) % MCV (80.0-100.0) fL MCH (25.0-35.0) pg MCHC (31.0-37.0) g/dL RDW (11.5-15.5) % Plt Count (150-450) k/uL MPV Neutrophils % % Lymphocytes % % Monocytes % % Eosinophils % % Basophils % % Neutrophils # (1.3-7.7) k/uL Lymphocytes # (1.0-4.8) k/uL Monocytes # (0-1.0) k/uL Eosinophils # (0-0.7) k/uL Basophils # (0-0.2) k/uL Sodium (137-145) mmol/L Potassium (3.5-5.1) mmol/L Chloride (98-107) mmol/L Carbon Dioxide (22-30) mmol/L Anion Gap mmol/L BUN (7-17) mg/dL Creatinine (0.52-1.04) mg/dL Est GFR (CKD-EPI)AfAm (>60 ml/min/1.73 sqM) Est GFR (CKD-EPI)NonAf (>60 ml/min/1.73 sqM) Glucose (74-99) mg/dL Calcium (8.4-10.2) mg/dL Total Bilirubin (0.2-1.3) mg/dL AST (14-36) U/L ALT (4-34) U/L Alkaline Phosphatase (38-126) U/L Total Protein (6.3-8.2) g/dL Albumin (3.5-5.0) g/dL Urine Color Yellow Urine Appearance Cloudy H (Clear) Urine pH 6.5 (5.0-8.0) Ur Specific [place] 1.028 (1.001-1.035) Urine Protein 1+ H (Negative) Urine Glucose (UA) Negative (Negative) Urine Ketones 2+ H (Negative) Urine Blood Negative (Negative) Urine Nitrite Negative (Negative) Urine Bilirubin Negative (Negative) Urine Urobilinogen <2.0 (<2.0) mg/dL Ur Leukocyte Esterase Large H (Negative) Urine RBC 3 (0-5) /hpf Urine WBC 148 H (0-5) /hpf Ur Squamous Epith Cells 12 H (0-4) /hpf Urine Bacteria Rare H (None) /hpf Urine Mucus Moderate H (None) /hpf Blood Type Blood Type Recheck Bld Type Recheck Status - Radiology Data Radiology results: report reviewed, image reviewed Physical ultrasound was obtained. Report was reviewed in its entirety. Impression per Dr. Mondragon as the ultrasound gestational age is 19 weeks and 3 days. No complicating process seen. No evidence of placental abruption. N ormal [place]otic [place] [address] exam. X-ray of the left ankle was obtained. Report was reviewed in its entirety. Impression per Dr. Rowland is there is no acute ankle fracture or dislocation. Disposition Clinical Impression: Left ankle pain, Fall, UTI (urinary tract infection) during Disposition: HOME SELF-CARE Condition: Stable Instructions (If sedation given, give patient instructions): Ankle Sprain (ED), Fall Prevention (ED), Urinary Tract Infection in (ED) Additional Instructions: You may take Tylenol if needed for pain. Clifton wrap in place for compression. Apply ice for no more than 20 minutes/hour. Your Ultrasound was normal showing your at 19 weeks 3 days. Take antibiotic for UTI. You really need to establish with an OB-Equity Holder for routine care. Return to the emergency department with any new, worsening, or concerning symptoms. Prescriptions: Cephalexin [Keflex] 500 mg PO TID 5 Days #15 cap Is patient prescribed a controlled substance at d/c from ED?: No Referrals: None,Stated [Primary Care Provider] - 1-2 days Time of Disposition: 01:33
[2021-11-04 22:45] LABS: Basophils % (A) 1 %; Eosinophils # (A) 0.3 k/uL (0-0.7); Eosinophils % (A) 3 %; HCT 34.4 % (34.0-46.0); HGB 12.1 gm/dL (11.4-16.0); Lymphocytes # (A) 2.2 k/uL (1.0-4.8); Lymphocytes % (A) 27 %; MCH 31.7 pg (25.0-35.0); MCHC 35.1 g/dL (31.0-37.0); MCV 90.2 fL (80.0-100.0); Mean Platelet Volume 8.1; Monocytes # (A) 0.4 k/uL (0-1.0); Monocytes % (A) 5 %; Neutrophils # (A) 5.2 k/uL (1.3-7.7); Neutrophils % (A) 64 %; Platelet Count 180 k/uL (150-450); RBC 3.81 m/uL (3.80-5.40); RDW 13.2 % (11.5-15.5); WBC 8.2 k/uL (4.0-11.0)
[2021-11-04 23:02] LABS: ALT 10 U/L (4-34); AST 16 U/L (14-36); African American GFR (CKD) >90 (>60 ml/min/1.73 sqM); Albumin 3.9 g/dL (3.5-5.0); Alkaline Phosphatase 43 U/L (38-126); Anion Gap 10 mmol/L; Blood Urea Nitrogen 4 mg/dL (7-17); Calcium 8.8 mg/dL (8.4-10.2); Carbon Dioxide 21 mmol/L (22-30); Chloride 104 mmol/L (98-107); Glucose 78 mg/dL (74-99); Non-African American GFR(CKD) >90 (>60 ml/min/1.73 sqM); Potassium 3.6 mmol/L (3.5-5.1); Sodium 135 mmol/L (137-145); Total Bilirubin 0.4 mg/dL (0.2-1.3); Total Protein 6.2 g/dL (6.3-8.2)
--- NOTE | 2021-11-04 23:09 | US ---
EXAMINATION TYPE: US OB >= 14 wk fetus DATE OF EXAM: 11/04/2021 COMPARISON: 09/25/21 CLINICAL HISTORY: abdominal pain and vaginal bleeding s/p fallpt fell down stairs. light vaginal blee ding TECHNIQUE: Transabdominal (TA) GESTATIONAL AGE / DATING Physician Established: Patient states she does not have an OB and has been using 04/01/22 Dates by LMP: unknown Dates by First Scan: (13 weeks/0 days) EDC: 04/02/22 Dates by Current Scan: (19 weeks/3 days) EDC: 03/28/22 Beta HCG (if available): N/A SURVEY IUP: Single PLACENTA: Fundal PREVIA: No Previa RADHA: 18.1 cm Normal CERVICAL LENGTH (transabdominal: norm > 3.0cm): 4.7 cm BIOMETRY PRESENTATION: Vertex LIE: Longitudinal BPD: 4.4 cm 19 weeks / 3 days HC: 16.7 cm 19 weeks / 3 days AC: 15.1 cm 20 weeks / 2 days FL: 3.1 cm 19 weeks / 5 days ESTIMATED WEIGHT IN GRAMS: 322 grams ESTIMATED WEIGHT IN LBS/OZ: 0 lbs. 11 oz. WEIGHT PERCENTAGE BASED ON ESTABLISHED DATES: 95.8% HC/AC: 1.1 Normal FL/AC: 18.7 Normal HEART RATE: 150 bpm RHYTHM: Normal IMPRESSION: The ultrasound gestational age is 19 weeks and 3 days. No complicating process seen. No evidence of p lacental abruption. Normal amniotic fluid. There is satisfactory growth compared to 09/25/2021 exam.
[2021-11-05 00:22] VITALS: PULSE 80
[2021-11-05 01:09] LABS: Appearance,Urine Cloudy (Clear); Bacteria,Urine Rare /hpf; Bilirubin,Urine Negative (Negative); Blood,Urine Negative (Negative); Color,Urine Yellow; Glucose,Urine (UA) Negative (Negative); Ketones,Urine 2+ (Negative); Leukocyte Esterase,Urine Large (Negative); Mucus,Urine Moderate /hpf; Nitrite,Urine Negative (Negative); PH, Urine 6.5 (5.0-8.0); Protein,Urine 1+ (Negative); RBC,Urine 3 /hpf (0-5); Specific Gravity,Urine 1.028 (1.001-1.035); Squamous Epithelial Cell,Urine 12 /hpf (0-4); Urobilinogen,Urine <2.0 mg/dL (<2.0); WBC,Urine 148 /hpf (0-5)
[2021-11-05] MEDS ORDERED: CEPHALEXIN 500 MG CAP PO STA (01:31)
[2021-11-05] MEDS ORDERED: CALCIUM CARBONATE 500 MG CHEWABLE PO STA (01:34)
[2021-11-05 01:43] VITALS: RESP 18; TEMP 98.3
[2021-11-05 01:48] VITALS: BP 128/67
== END 2021-11-05 01:48 | disposition home or self-care (01) ==
LOC: EC 17:32
DX: O23.42 Unspecified infection of urinary tract in pregnancy, second trimester (principal); O9A.212 Injury, poisoning and certain other consequences of external causes complicating pregnancy, second trimester; O99.512 Diseases of the respiratory system complicating pregnancy, second trimester; N39.0 Urinary tract infection, site not specified; M25.572 Pain in left ankle and joints of left foot; J45.909 Unspecified asthma, uncomplicated; Z88.8 Allergy status to other drugs, medicaments and biological substances; W19.XXXA Unspecified fall, initial encounter
CPT/HCPCS: 36415; 76805; 80053; 81001; 85025; 86900; 86901; 87086; 99284

== ENCOUNTER 2021-12-08 16:15 | Emergency (ER) | payer OTHER ==
[2021-12-08 16:22] VITALS: BP 108/67; PULSE 119; RESP 18; TEMP 98.8
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
== END 2021-12-08 17:26 | disposition home or self-care (01) ==
LOC: EC 16:15
DX: O26.892 Other specified pregnancy related conditions, second trimester (principal); S00.93XA Contusion of unspecified part of head, initial encounter; J45.909 Unspecified asthma, uncomplicated; F32.A Depression, unspecified; F12.90 Cannabis use, unspecified, uncomplicated; Z88.1 Allergy status to other antibiotic agents; Z79.51 Long term (current) use of inhaled steroids; Y04.8XXA Assault by other bodily force, initial encounter; Z3A.24 24 weeks gestation of pregnancy
CPT/HCPCS: 70450; 99285

== ENCOUNTER 2021-12-08 17:50 | Outpatient (CLI) | payer OTHER ==
[2021-12-08 19:30] VITALS: BP 124/60; PULSE 100; RESP 16; TEMP 97
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
== END 2021-12-08 18:45 | disposition home or self-care (01) ==
LOC: FBPOP 17:50
PROVIDERS: ATTEND Obstetrics & Gynecology
DX: O26.892 Other specified pregnancy related conditions, second trimester (principal); Z3A.23 23 weeks gestation of pregnancy
CPT/HCPCS: 99213

== ENCOUNTER 2021-12-29 18:20 | Outpatient (CLI) | payer OTHER ==
[2021-12-29 19:34] LABS: Basophils % (A) 0 %; Eosinophils # (A) 0.3 k/uL (0-0.7); Eosinophils % (A) 4 %; HCT 32.4 % (34.0-46.0); HGB 11.3 gm/dL (11.4-16.0); Lymphocytes # (A) 1.9 k/uL (1.0-4.8); Lymphocytes % (A) 20 %; MCH 32.1 pg (25.0-35.0); MCV 91.7 fL (80.0-100.0); Mean Platelet Volume 8.5; Monocytes # (A) 0.5 k/uL (0-1.0); Monocytes % (A) 5 %; Neutrophils # (A) 6.4 k/uL (1.3-7.7); Neutrophils % (A) 70 %; Platelet Count 205 k/uL (150-450); RBC 3.53 m/uL (3.80-5.40); RDW 12.7 % (11.5-15.5); WBC 9.2 k/uL (3.8-10.6)
[2021-12-29 19:55] LABS: Appearance,Urine Clear (Clear); Bilirubin,Urine Negative (Negative); Blood,Urine Negative (Negative); Color,Urine Yellow; Glucose,Urine (UA) Negative (Negative); Ketones,Urine Negative (Negative); Leukocyte Esterase,Urine Moderate (Negative); Mucus,Urine Rare /hpf; Nitrite,Urine Negative (Negative); PH, Urine 6.5 (5.0-8.0); Protein,Urine Trace (Negative); RBC,Urine <1 /hpf (0-5); Squamous Epithelial Cell,Urine 8 /hpf (0-4); Urobilinogen,Urine <2.0 mg/dL (<2.0); WBC,Urine 8 /hpf (0-5)
[2021-12-29 20:04] LABS: Amphetamine Screen,Urine Not Detected (NotDetected); Barbiturate Screen,Urine Not Detected (NotDetected); Benzodiazepines Screen,Urine Not Detected (NotDetected); Cocaine Screen,Urine Not Detected (NotDetected); Methadone Screen, Urine Not Detected (NotDetected); Opiate Screen,Urine Not Detected (NotDetected); Oxycodone Screen, Urine Not Detected (NotDetected); Phencyclidine Screen,Urine Not Detected (NotDetected); Tricyclic Antidepressant,Urine Not Detected (NotDetected); Urn Cannabinoid Scrn Detected (NotDetected)
[2021-12-29 20:32] VITALS: BP 114/60; PULSE 86; RESP 16; TEMP 97
[2021-12-30 02:40] LABS: Hepatitis B Surface Antigen Nonreactive (Nonreactive)
[2021-12-30 05:23] LABS: HIV 2 AB Non-Reactive (Non-Reactive); HIV AB P24 Non-Reactive (Non-Reactive); HIV P24 AG Non-Reactive (Non-Reactive)
[2021-12-30 13:08] LABS: C. trachomatis,PCR Negative (Neg,Equiv); Chlamydia trachomatis Source Urine; N. gonorrhoeae,PCR Negative (Neg,Equiv); Neisseria Source Urine
--- NOTE | 2022-01-23 07:58 | P.MSEPDOC ---
Presenting Problems - Arrival Data Date of Arrival on Unit: 12/29/21 Time of Arrival on Unit: 18:20 Mode of Transport: Ambulatory - Complaint OB-Reason for Admission/Chief Complaint: Acute Nausea/Vomiting Medical History - Information : 2 Para: 1 - Gestational Age Gestational Age by LIS (wks/days): 26 Weeks and 5 Days - History Complications: No Care Review of Systems - Review of Systems Constitutional: No problems Breast: No problems ENT: No problems Cardiovascular: No problems Respiratory: No problems Gastrointestinal: No problems Genitourinary: No problems Musculoskeletal: No problems Neurological: No problems Skin: No problems Vital Signs - Temperature Temperature: 97.0 F Temperature Source: Temporal Artery Scan - Pulse Pulse Oximetery Pulse Rate: 86 Pulse Assessment Method: Pulse Oximetry - Respirations Respiratory Rate: 16 Oxygen Delivery Method: Room Air O2 Sat by Pulse Oximetry: 100 - Blood Pressure Right Arm Blood Pressure: 114/60 Blood Pressure Mean: 78 Blood Pressure Source: Automatic Cuff Medical Screen Scoring - Assessment - Baby A Baseline FHR: 150 Heart Rate - NICHD Category: Category I (Normal) Maternal Triage Index - Maternal Triage Index Presenting for scheduled procedure w/no complaint: No - Stat/Priority 1 Stat Priority 1: No - Urgent/Priority 2 Urgent Priority 2: No - Prompt/Priority 3 Prompt Priority 3: No - Non-Urgent/Priority 4 Non-Urgent Priority 4: Yes Criteria Met for Priority 4: patient presents to triage for nausea/vomiting Disposition - Disposition OB Disposition: Discharge to home I agree with the RN Medical Screening Exam: Yes Case reviewed; plan agreed upon as documented in EMR&OBIX.: Yes Diagnosis: VOMITING OF , UNSPECIFIED
== END 2021-12-29 20:32 ==
LOC: FBPOP 18:20
PROVIDERS: ATTEND Obstetrics & Gynecology
DX: O26.892 Other specified pregnancy related conditions, second trimester (principal); Z3A.26 26 weeks gestation of pregnancy; R11.10 Vomiting, unspecified; Z88.8 Allergy status to other drugs, medicaments and biological substances
CPT/HCPCS: 36415; 86900; 86901; 86762; 82947; 85025; 86850; 87340; 81001; 87491; 87591; 86780; 80306; 87390; G0463; 99214

== ENCOUNTER 2022-02-12 17:01 | Outpatient (CLI) | payer OTHER ==
[2022-02-12 18:23] LABS: Amorphous Sediment,Urine Occasional /hpf; Appearance,Urine Cloudy (Clear); Bacteria,Urine Rare /hpf; Bilirubin,Urine Negative (Negative); Blood,Urine Negative (Negative); Color,Urine Yellow; Glucose,Urine (UA) Negative (Negative); Ketones,Urine Negative (Negative); Leukocyte Esterase,Urine Small (Negative); Mucus,Urine Rare /hpf; Nitrite,Urine Negative (Negative); PH, Urine 7.5 (5.0-8.0); Protein,Urine Trace (Negative); Specific Gravity,Urine 1.021 (1.001-1.035); Squamous Epithelial Cell,Urine 6 /hpf (0-4); Urobilinogen,Urine <2.0 mg/dL (<2.0); WBC,Urine 26 /hpf (0-5)
[2022-02-12 18:39] LABS: Amphetamine Screen,Urine Not Detected (NotDetected); Barbiturate Screen,Urine Not Detected (NotDetected); Benzodiazepines Screen,Urine Not Detected (NotDetected); Cocaine Screen,Urine Not Detected (NotDetected); Methadone Screen, Urine Not Detected (NotDetected); Opiate Screen,Urine Not Detected (NotDetected); Oxycodone Screen, Urine Not Detected (NotDetected); Phencyclidine Screen,Urine Not Detected (NotDetected); Tricyclic Antidepressant,Urine Not Detected (NotDetected); Urn Cannabinoid Scrn Not Detected (NotDetected)
[2022-02-12 19:16] LABS: Basophils % (A) 0 %; Eosinophils # (A) 0.4 k/uL (0-0.7); Eosinophils % (A) 4 %; HCT 31.8 % (34.0-46.0); HGB 11.2 gm/dL (11.4-16.0); Lymphocytes # (A) 1.8 k/uL (1.0-4.8); Lymphocytes % (A) 17 %; MCH 32.4 pg (25.0-35.0); MCHC 35.3 g/dL (31.0-37.0); MCV 91.9 fL (80.0-100.0); Mean Platelet Volume 8.6; Monocytes # (A) 0.5 k/uL (0-1.0); Monocytes % (A) 5 %; Neutrophils # (A) 7.4 k/uL (1.3-7.7); Neutrophils % (A) 72 %; Platelet Count 210 k/uL (150-450); RBC 3.46 m/uL (3.80-5.40); RDW 12.9 % (11.5-15.5); WBC 10.2 k/uL (3.8-10.6)
[2022-02-12 19:51] VITALS: BP 127/88; PULSE 98; RESP 16; TEMP 97.4
--- NOTE | 2022-02-12 19:57 | US ---
EXAMINATION TYPE: US OB >= 14 wk fetus DATE OF EXAM: 02/12/2022 COMPARISON: Pelvic ultrasound 11/04/2021, pelvic ultrasound 09/25/2021, pelvic ultrasound 09/02/2021 CLINICAL HISTORY: no care, need dates for delivery, unknown dates, no care, pain TECHNIQUE: OBTA GESTATIONAL AGE / DATING Physician Established: Not yet established Dates by LMP: LMP unknown Dates by First Scan: No previous this is first scan Dates by Current Scan: 35 weeks/1 days EDC: 03/18/2022 SURVEY IUP: Single PLACENTA: Fundal- left PREVIA: No Previa RADHA: 16.5 cm Normal CERVICAL LENGTH (transabdominal: norm > 3.0cm): unable to view due to head shadowing and not fully di stended bladder BIOMETRY PRESENTATION: Vertex LIE: Longitudinal BPD: 8.6 cm 34 weeks / 6 days HC: 31.2 cm 35 weeks / 2 days AC: 31.3 cm 35 weeks / 2 days FL: 6.8 cm 35 weeks / 1 days ESTIMATED WEIGHT IN GRAMS: 2596 grams ESTIMATED WEIGHT IN LBS/OZ: 5 lbs. 12 oz. HC/AC: 1.0 Normal FL/AC: 22 Normal HEART RATE: 167 bpm RHYTHM: Normal Nuchal fold thickness ranged from 1.2 - 1.5cm. IMPRESSION: 1. Live single intrauterine with an ultrasound gestational age of 35 weeks and 1 day. 2. Nuchal fold thickness of 1.2 to 1.5 cm. Recommend non-emergent dedicated anatomy survey.
[2022-02-12 22:39] LABS: Hepatitis B Surface Antigen Nonreactive (Nonreactive)
[2022-02-13 14:17] LABS: HIV 2 AB Non-Reactive (Non-Reactive); HIV AB P24 Non-Reactive (Non-Reactive); HIV P24 AG Non-Reactive (Non-Reactive)
[2022-02-14 11:56] LABS: C. trachomatis,PCR Negative (Neg,Equiv); Chlamydia trachomatis Source Urine
[2022-02-14 11:57] LABS: N. gonorrhoeae,PCR Negative (Neg,Equiv); Neisseria Source Urine
--- NOTE | 2022-03-19 10:16 | P.MSEPDOC ---
Presenting Problems - Arrival Data Date of Arrival on Unit: 02/12/22 Time of Arrival on Unit: 17:01 Mode of Transport: Ambulatory - Complaint OB-Reason for Admission/Chief Complaint: Pain Comment: patient presents to triage with complaints of pelvic cramping and back pain 12/05 which started 1 month ago. Medical History - Information : 2 Para: 1 - Gestational Age Gestational Age by LIS (wks/days): 37 Weeks and 4 Days Review of Systems - Review of Systems Constitutional: No problems Breast: No problems ENT: No problems Cardiovascular: No problems Respiratory: No problems Gastrointestinal: No problems Genitourinary: No problems Musculoskeletal: No problems Neurological: No problems Skin: No problems Vital Signs - Temperature Temperature: 97.4 F Temperature Source: Oral - Pulse Pulse Oximetery Pulse Rate: 98 Pulse Assessment Method: Pulse Oximetry - Respirations Respiratory Rate: 16 Oxygen Delivery Method: Room Air O2 Sat by Pulse Oximetry: 96 - Blood Pressure Right Arm Blood Pressure: 127/88 Blood Pressure Mean: 101 Blood Pressure Source: Automatic Cuff Physician Notification - Physician Notified Physician Notified Date: 02/12/22 Physician Notified Time: 19:00 Maternal Triage Index - Stat/Priority 1 Stat Priority 1: No - Urgent/Priority 2 Urgent Priority 2: No - Prompt/Priority 3 Prompt Priority 3: Yes Criteria Met for Priority 3: patient presents to triage complaining of mucus plug broke, pelvic cramping and back pain. Disposition - Disposition OB Disposition: Discharge to home Discharge Date: 02/12/22 Discharge Time: 19:18 I agree with the RN Medical Screening Exam: Yes Physician's MSE Comment: I have neither seen nor examined the patient Case reviewed; plan agreed upon as documented in EMR&OBIX.: Yes Diagnosis: RELATED CONDITIONS, UNSPECIFIED, THIRD TRIMESTER
== END 2022-02-12 19:51 ==
LOC: FBPOP 17:01
PROVIDERS: ATTEND Obstetrics & Gynecology
DX: O26.93 Pregnancy related conditions, unspecified, third trimester (principal); Z3A.37 37 weeks gestation of pregnancy; Z88.1 Allergy status to other antibiotic agents
CPT/HCPCS: 59025; 86900; 86901; 86762; 82947; 85025; 86850; 87340; 81001; 87491; 87591; 86780; 80306; 87390; 76813; 76805; G0463; 99213

== ENCOUNTER 2022-02-15 13:17 | Observation (INO) | payer OTHER ==
[2022-02-15] MEDS ORDERED: LACTATED RINGERS 1,000 ML IV SCH (14:15)
[2022-02-15 14:39] LABS: Basophils % (A) 0 %; Eosinophils # (A) 0.3 k/uL (0-0.7); Eosinophils % (A) 3 %; HCT 32.1 % (34.0-46.0); HGB 11.2 gm/dL (11.4-16.0); Lymphocytes # (A) 1.9 k/uL (1.0-4.8); Lymphocytes % (A) 17 %; MCH 31.8 pg (25.0-35.0); MCHC 34.8 g/dL (31.0-37.0); MCV 91.4 fL (80.0-100.0); Mean Platelet Volume 8.5; Monocytes # (A) 0.5 k/uL (0-1.0); Monocytes % (A) 4 %; Neutrophils # (A) 8.6 k/uL (1.3-7.7); Neutrophils % (A) 75 %; Platelet Count 224 k/uL (150-450); RBC 3.51 m/uL (3.80-5.40); WBC 11.5 k/uL (3.8-10.6)
[2022-02-15 14:46] LABS: Amphetamine Screen,Urine Not Detected (NotDetected); Appearance,Urine Clear (Clear); Bacteria,Urine Rare /hpf; Barbiturate Screen,Urine Not Detected (NotDetected); Benzodiazepines Screen,Urine Not Detected (NotDetected); Bilirubin,Urine Negative (Negative); Blood,Urine Large (Negative); Cocaine Screen,Urine Not Detected (NotDetected); Color,Urine Yellow; Glucose,Urine (UA) Negative (Negative); Ketones,Urine Negative (Negative); Leukocyte Esterase,Urine Small (Negative); Methadone Screen, Urine Not Detected (NotDetected); Mucus,Urine Rare /hpf; Nitrite,Urine Negative (Negative); Opiate Screen,Urine Not Detected (NotDetected); Oxycodone Screen, Urine Not Detected (NotDetected); PH, Urine 7.5 (5.0-8.0); Phencyclidine Screen,Urine Not Detected (NotDetected); Protein,Urine Negative (Negative); RBC,Urine >182 /hpf (0-5); Specific Gravity,Urine 1.013 (1.001-1.035); Squamous Epithelial Cell,Urine 2 /hpf (0-4); Tricyclic Antidepressant,Urine Not Detected (NotDetected); Urn Cannabinoid Scrn Not Detected (NotDetected); Urobilinogen,Urine <2.0 mg/dL (<2.0); WBC,Urine 3 /hpf (0-5)
[2022-02-15] MEDS: LACTATED RINGERS 1,000 ML IV SCH (15:50)
--- NOTE | 2022-02-15 16:10 | US ---
EXAMINATION TYPE: US OB >= 14 wk fetus DATE OF EXAM: 02/15/2022 COMPARISON: US CLINICAL HISTORY: RADHA, EFW, placenta location, cervical length TECHNIQUE: Transabdominal (TA) GESTATIONAL AGE / DATING Physician Established: Not yet established Dates by LMP: LMP unknown Dates by First Scan: previous 3 days ago Dates by Current Scan: (35 weeks/2 days) EDC: Beta HCG (if available): SURVEY IUP: Single PLACENTA: Posterior PREVIA: no probable previa RADHA: 12.8 cm CERVICAL LENGTH (transabdominal: norm > 3.0cm): Unable to see for measurement CERVICAL LENGTH (transvaginal: norm> 2.5cm): deferred, ok per Dr. Prescott ( BIOMETRY PRESENTATION: Vertex BPD: 8.8 cm 35 weeks / 5 days HC: 32.0 cm 35. weeks / 3 days AC: 29.5 cm 33 weeks / 4 days FL: 7.0 cm 36 weeks / 0 days ESTIMATED WEIGHT IN GRAMS: 2472 grams ESTIMATED WEIGHT IN LBS/OZ: 5 lbs. 7 oz. WEIGHT PERCENTAGE BASED ON ESTABLISHED DATES: previous 3 days ago HC/AC: 1.06 FL/AC: 24 HEART RATE: 172 bpm RHYTHM: Normal IMPRESSION: 1. Single intrauterine gestation estimated at 35 weeks 2 days gestation based on the current ultrasou nd measurements. Cardiac activity measures 172 bpm. Estimated weight 2472 g.
[2022-02-15] MEDS: BETAMET ACET-BETAMETH SOD PHOS 6 MG/ML MDV IM SCH (16:35)
--- NOTE | 2022-02-15 17:47 | P.HPOB ---
History of Present Illness H&P Date: 02/15/22 Chief Complaint: IUP @ 35 5/7 weeks, vaginal bleeding 21 yo at 35 weeks that presents complaints of vaginal bleeding that started earlier today. Patient states she was seen in triage over the weekend and was given and gestational age of 35 weeks with an estimated due date of March 17. Patient states she has not received care during this . Patient has a prior history of a 38 week delivery induced for vaginal bleeding. Patient denies any inciting event for the bleeding. Patient states she went on a walk came home and noted increased bleeding and presented to triage. Patient does note good movement. Patient is noted low back pain over the last day. Patient denies changes in urinary or bowel function. Patient denies recent intercourse. Review of Systems Constitutional: Reports fatigue, Denies chills, Denies fever Ears, nose, mouth and throat: Denies headache Cardiovascular: Reports leg edema Respiratory: Denies dyspnea Gastrointestinal: Denies constipation, Denies diarrhea, Denies nausea, Denies vomiting Genitourinary: Reports abnormal vaginal bleeding, Reports , Denies dysuria, Denies genital sores Past Medical History Past Medical History: Asthma Additional Past Medical History / Comment(s): bipolar disorder, ADHD, OCD, asthma History of Any Multi-Drug Resistant Organisms: None Reported Past Surgical History: Adenoidectomy, Ear Surgery, Tonsillectomy Past Anesthesia/Blood Transfusion Reactions: No Reported Reaction Smoking Status: Never smoker - Past Family History Mother Family Medical History: No Reported History Medications and Allergies Home Medications Medication Instructions Recorded Confirmed Type No Known Home Medications 12/29/21 02/12/22 History Allergies Allergy/AdvReac Type Severity Reaction Status Date / Time divalproex sodium Allergy Anaphylaxis Verified 02/15/22 14:09 [From Depakote] Exam Osteopathic Statement: *. No significant issues noted on an osteopathic struc tural exam other than those noted in the History and Physical/Consult. Vital Signs Temp Pulse Resp BP Pulse Ox 02/15/22 14:06 97.8 F 88 16 120/74 100 Intake and Output 02/15/22 02/15/22 02/15/22 06:59 14:59 22:59 Other: Weight 86.183 kg Physical exam is performed and date and auto roller a well-nourished well-de veloped female in no acute distress, breathing is nonlabored, heart has a regular rate and rhythm, abdomen is soft and gravid, on vaginal exam external genitalia is noted to be normal, with inspection of the vaginal vault a small anterior laceration is appreciated not bleeding, more like an excoriation with a blood clot overlying. Vaginal tissue is pink and well rugated. The cervix was appreciated to be normal no blood is appreciated around or coming through the cervix, yellow physiologic discharge is appreciated by the cervix. On cervical exam she is 1/50/-3 station firm posterior cervix is appreciated. Results Result Diagrams: 02/15/22 14:28 02/15/22 15:30 Abnormal Lab Results - Last 24 Hours (Table) 02/15/22 02/15/22 Range/Units 13:38 14:28 WBC 11.5 H (3.8-10.6) k/uL RBC 3.51 L (3.80-5.40) m/uL Hgb 11.2 L (11.4-16.0) gm/dL Hct 32.1 L (34.0-46.0) % Neutrophils # 8.6 H (1.3-7.7) k/uL Urine Blood Large H (Negative) Ur Leukocyte Esterase Small H (Negative) Urine RBC >182 H (0-5) /hpf Urine Bacteria Rare H (None) /hpf Urine Mucus Rare H (None) /hpf Assessment and Plan (1) 35 weeks gestation of Current Visit: No Status: Acute Code(s): Z3A.35 - 35 WEEKS GESTATION OF SNOMED Code(s): 01697050 (2) Antepartum bleeding, third trimester Current Visit: No Status: Acute Code(s): O46.93 - ANTEPARTUM HEMORRHAGE, UNSPECIFIED, THIRD TRIMESTER SNOMED Code(s): 269851923 Plan: 21-year-old at 35-5/7 weeks based on a third trimester ultrasound presents with complaints of vaginal bleeding that began earlier today. Patient had a similar experience with her prior delivery and ended up delivering at 38 weeks, induction of labor secondary to vaginal bleeding. Patient has been stable while on OB. She has noted passage of some small dark blood clots. monitoring has been category 1, some uterine irritability is appreciated. Ultrasound was performed earlier and noted to be normal, beta Methasone is given, continue with continuous monitoring and toco. Plan second dose of betamethasone tomorrow. Close monitoring of bleeding. Plan is discussed with patient and questions are answered. She is frustrated with this plan, as this happen to her last time. She states she doesn't want to be coming and going fr om a triage given the bleeding. Reassurance given exam. We'll continue close observation
[2022-02-15] MEDS: CALCIUM CARBONATE 500 MG CHEWABLE PO PRN (22:00)
[2022-02-15] MEDS ORDERED: FAMOTIDINE 20 MG TAB PO ONE (22:00)
[2022-02-15] MEDS: ACETAMINOPHEN IV (For NPO) 1,000 MG in EMPTY BAG 1 BAG IVPB SCH (22:00)
[2022-02-15 23:59] LABS: Hepatitis B Surface Antigen Nonreactive (Nonreactive)
[2022-02-16] MEDS: CALCIUM CARBONATE 500 MG CHEWABLE PO PRN ×4 (02:41→15:57)
[2022-02-16] MEDS: LACTATED RINGERS 1,000 ML IV SCH (02:43)
[2022-02-16] MEDS: ONDANSETRON 4 MG/2 ML VIAL IVP PRN ×2 (04:07→09:40)
[2022-02-16 04:18] VITALS: RESP 18
[2022-02-16 07:53] VITALS: BP 105/52; PULSE 74; TEMP 96.8
--- NOTE | 2022-02-16 08:59 | P.PN ---
Progress Note - Text Progress Note Date: 02/16/22 21-year-old at 35 6/7 weeks presented last evening with complaints of vaginal bleeding. Patient had a negative exam. Bleeding through the night has slowed. Patient did receive betamethasone at 1630. We will continue monitoring today and she will receive her follow-up betamethasone at 1630. If bleeding remains decreased and testing is reassuring we'll plan discharge at that time. Prior records for this patient were reviewed and discussed with her yesterday. Patient had a history of HSV, previously taking acyclovir. She states she's never had an outbreak but did have a positive blood test. In addition prior records reveal seizure disorder upon discussion it sounds like it could be an absence seizure, she has not been on medication for this and follows with her primary care. She denies seeing a neurologist. A: IUP @ 35 6/7 with complaints of vaginal bleeding, bleeding has slowed/ceased overnight. Brown discharge is noted on her princess-pad. No contractions were appreciated through the night. heart tones have been category 1. P will continue monitoring today after she receives her second dose of betamethasone at 1630 is stable we'll plan discharge home.
[2022-02-16] MEDS ORDERED: ACETAMINOPHEN IV (For NPO) 1,000 MG in EMPTY BAG 1 BAG IVPB PRN (09:03)
[2022-02-16] MEDS: ACETAMINOPHEN IV (For NPO) 1,000 MG in EMPTY BAG 1 BAG IVPB SCH (09:03)
[2022-02-16] MEDS ORDERED: ACETAMINOPHEN IV (For NPO) 1,000 MG in EMPTY BAG 1 BAG IVPB ONE (14:26)
[2022-02-16 15:36] LABS: HIV 2 AB Non-Reactive (Non-Reactive); HIV AB P24 Non-Reactive (Non-Reactive); HIV P24 AG Non-Reactive (Non-Reactive)
[2022-02-16] MEDS: BETAMET ACET-BETAMETH SOD PHOS 6 MG/ML MDV IM SCH (16:09)
== END 2022-02-16 16:15 | disposition home or self-care (01) ==
LOC: FBPOP 13:17 → 4FBP 15:27
PROVIDERS: ADMIT Obstetrics & Gynecology Obstetrics; ATTEND Obstetrics & Gynecology Obstetrics
DX: O46.8X3 Other antepartum hemorrhage, third trimester (principal); O99.513 Diseases of the respiratory system complicating pregnancy, third trimester; O99.343 Other mental disorders complicating pregnancy, third trimester; O98.313 Other infections with a predominantly sexual mode of transmission complicating pregnancy, third trimester; O99.353 Diseases of the nervous system complicating pregnancy, third trimester; F31.9 Bipolar disorder, unspecified; J45.909 Unspecified asthma, uncomplicated; F42.9 Obsessive-compulsive disorder, unspecified; F90.9 Attention-deficit hyperactivity disorder, unspecified type; A60.00 Herpesviral infection of urogenital system, unspecified; G40.909 Epilepsy, unspecified, not intractable, without status epilepticus; Z3A.35 35 weeks gestation of pregnancy; Z11.4 Encounter for screening for human immunodeficiency virus [HIV]
CPT/HCPCS: 96376; 96365; 96372 ×2; 96375; 59025; 96360; 86762; 82947; 85025; 87340; 81001; 86780; 80306; 87390; 76805; G0378 ×2; G0463; J2405; J0131 ×2; J0702 ×2; 99214

== ENCOUNTER 2022-02-26 21:20 | Outpatient (CLI) | payer OTHER ==
[2022-02-26 22:29] VITALS: BP 121/66; PULSE 96; RESP 16; TEMP 98
--- NOTE | 2022-02-27 15:23 | P.MSEPDOC ---
Presenting Problems - Arrival Data Date of Arrival on Unit: 02/26/22 Time of Arrival on Unit: 21:20 Mode of Transport: Wheelchair - Complaint OB-Reason for Admission/Chief Complaint: Rule Out SROM, Vaginal Bleeding, Pain Comment: Pt reports pink-tinged discharge and leaking of fluid since last triage visit. on 02/15/22. Pt also reports some cramping and back discomfort on the right side from. her buttocks up to her shoulder. Medical History - Information : 2 Para: 1 Term: 1 : 0 Abortions: Spontaneous or Elective: 0 Number of Living Children: 1 - Gestational Age Gestational Age by LIS (wks/days): 37 Weeks and 2 Days - History Complications: No Care, Hx. Substance Abuse, Other Comment: Pt reports THC use and hx of genital herpes but is not currently under treatment Review of Systems - Review of Systems Constitutional: No problems Breast: No problems ENT: No problems Cardiovascular: No problems Respiratory: No problems Gastrointestinal: No problems Genitourinary: No problems Musculoskeletal: No problems Neurological: No problems Skin: No problems Vital Signs - Temperature Temperature: 98.0 F Temperature Source: Temporal Artery Scan - Pulse Pulse Oximetery Pulse Rate: 96 Pulse Assessment Method: Pulse Oximetry - Respirations Respiratory Rate: 16 Oxygen Delivery Method: Room Air O2 Sat by Pulse Oximetry: 98 - Blood Pressure Right Arm Blood Pressure: 121/66 Blood Pressure Mean: 84 Blood Pressure Source: Automatic Cuff Medical Screen Scoring - Cervical Exam Dilation (cm): 1 Effacement (%): 50 Station: -3 Membranes: Intact - Assessment - Baby A Baseline FHR: 150 Heart Rate - NICHD Category: Category I (Normal) NST: Reactive Physician Notification - Physician Notified Physician Notified Date: 02/26/22 Physician Notified Time: 21:40 Physician: Maeve Araujo - Notification Comment Comment: Dr. Araujo notified of pt's arrival to triage with c/o pink tinged discharge,. possible leaking of fluid since her last triage visit on 02/15/22, and cramping. Pt. known to physician, orders for an NST, AmniSure and SVE. Orders readback and verified. Maternal Triage Index - Maternal Triage Index Presenting for scheduled procedure w/no complaint: No - Stat/Priority 1 Stat Priority 1: No - Urgent/Priority 2 Urgent Priority 2: No - Prompt/Priority 3 Prompt Priority 3: No - Non-Urgent/Priority 4 Non-Urgent Priority 4: Yes Criteria Met for Priority 4: Pt reports pink-tinged discharge and leaking of fluid since last triage visit. on 02/15/22. Pt also reports some cramping and back discomfort on the right side from. her buttocks up to her shoulder. Pt states that she is unsure of how many pregnancies. she has had d/t numerous miscarriages but has had 1 other vaginal delivery about 1 year. ago. Pt denies having care and is unsure of the due date, possibly 03/17/22. Disposition - Disposition OB Disposition: Discharge to home Discharge Date: 02/26/22 Discharge Time: 22:18 I agree with the RN Medical Screening Exam: Yes Case reviewed; plan agreed upon as documented in EMR&OBIX.: Yes Diagnosis: FALSE LABOR BEFORE 37 COMPLETED WEEKS OF GEST, THIRD TRI
== END 2022-02-26 22:18 ==
LOC: FBPOP 21:20
PROVIDERS: ATTEND Obstetrics & Gynecology
DX: O47.03 False labor before 37 completed weeks of gestation, third trimester (principal); Z3A.37 37 weeks gestation of pregnancy; Z88.1 Allergy status to other antibiotic agents
CPT/HCPCS: 59025; 84112; G0463; 99213

== ENCOUNTER 2022-03-13 12:47 | Outpatient (CLI) | payer OTHER ==
--- NOTE | 2022-03-13 15:48 | US ---
EXAMINATION TYPE: US OB >= 14 wk fetus DATE OF EXAM: 03/13/2022 COMPARISON: Ultrasound OB 02/15/2022, 02/12/2022. CLINICAL HISTORY: chronic bleeding, complete ultrasoundBleeding cramping. TECHNIQUE: Transabdominal (TA) GESTATIONAL AGE / DATING Physician Established: unknown Dates by LMP: unknown Dates by First Scan: ( weeks/ days) EDC: Dates by Current Scan: (35 weeks/4 days) EDC: 04/13/2022 SURVEY IUP: Single PLACENTA: Anterior PREVIA: No Previa RADHA: 13 cm wnl BIOMETRY PRESENTATION: Vertex LIE: Vertex BPD: 8.69 cm 36 weeks / 1 days HC: 29.83 cm 33 weeks / 1 days AC: 31.92 cm 35 weeks / 6 days FL: 7.51 cm 38 weeks / 3 days ESTIMATED WEIGHT IN GRAMS: 2837 grams ESTIMATED WEIGHT IN LBS/OZ: 6 lbs. 4 oz. WEIGHT PERCENTAGE BASED ON ESTABLISHED DATES: 86% HC/AC: 0.94 Normal FL/AC: 24% Normal HEART RATE: 158 bpm RHYTHM: Normal Head measurements aren't accurate due to position of baby. Single viable intrauterine gestation. IMPRESSION: Single viable intrauterine gestation with estimated gestational age of 35 weeks 4 days. Estimated due date of 04/13/2022.
[2022-03-13 18:10] VITALS: BP 120/73; PULSE 100; RESP 14; TEMP 97.2
--- NOTE | 2022-03-13 20:22 | P.MSEPDOC ---
Presenting Problems - Arrival Data Date of Arrival on Unit: 03/13/22 Time of Arrival on Unit: 12:45 Mode of Transport: Portable - Complaint OB-Reason for Admission/Chief Complaint: Pain, Marino Bleeding Comment: pt states has been bleeding every few days consistently since fall at 16 weeks Medical History - Information : 2 Para: 1 Term: 0 : 1 Abortions: Spontaneous or Elective: 0 Number of Living Children: 1 - Gestational Age Gestational Age by LIS (wks/days): 37 Weeks and 1 Days - History Complications: No Care, Prior , Hx. Substance Abuse Comment: thc use Review of Systems - Review of Systems Constitutional: No problems Breast: No problems ENT: No problems Cardiovascular: No problems Respiratory: No problems Gastrointestinal: No problems Genitourinary: No problems Musculoskeletal: No problems Neurological: No problems Skin: No problems Vital Signs - Temperature Temperature: 97.2 F Temperature Source: Temporal Artery Scan - Pulse Right Pulse Rate: 100 Pulse Assessment Method: Automatic Cuff - Respirations Respiratory Rate: 14 Oxygen Delivery Method: Room Air O2 Sat by Pulse Oximetry: 98 - Blood Pressure Right Arm Blood Pressure: 120/73 Blood Pressure Mean: 88 Blood Pressure Source: Automatic Cuff Medical Screen Scoring - Cervical Exam Dilation (cm): 2 Effacement (%): 80 Station: -2 Membranes: Intact - Uterine Contractions Frequency From (mins): 0 - Assessment - Baby A Baseline FHR: 140 Heart Rate - NICHD Category: Category I (Normal) NST: Reactive Physician Notification - Physician Notified Physician Notified Date: 03/13/22 Physician Notified Time: 14:15 Physician: Alysha Gates Order Received: Yes (complete ob ultrasound) - Notification Comment Comment: u/s wnl, fht category 1, bleeding continues scant Maternal Triage Index - Maternal Triage Index Presenting for scheduled procedure w/no complaint: No - Stat/Priority 1 Stat Priority 1: No - Urgent/Priority 2 Urgent Priority 2: No - Prompt/Priority 3 Prompt Priority 3: No - Non-Urgent/Priority 4 Non-Urgent Priority 4: Yes Criteria Met for Priority 4: pain and bleeding 37 1/7 Disposition - Disposition OB Disposition: Triage, Discharge to home Discharge Date: 03/13/22 Discharge Time: 16:40 I agree with the RN Medical Screening Exam: Yes Case reviewed; plan agreed upon as documented in EMR&OBIX.: Yes Diagnosis: SPOTTING COMPLICATING , THIRD TRIMESTER
== END 2022-03-13 16:40 | disposition home or self-care (01) ==
LOC: FBPOP 12:47
PROVIDERS: ATTEND Obstetrics & Gynecology
DX: O26.853 Spotting complicating pregnancy, third trimester (principal); Z3A.37 37 weeks gestation of pregnancy; Z88.8 Allergy status to other drugs, medicaments and biological substances
CPT/HCPCS: 59025; 76805; G0463; 99213

== ENCOUNTER 2022-03-24 21:10 | Outpatient (CLI) | payer OTHER ==
[2022-03-24 22:24] LABS: Appearance,Urine Clear (Clear); Bilirubin,Urine Negative (Negative); Blood,Urine Negative (Negative); Color,Urine Yellow; Glucose,Urine (UA) Negative (Negative); Ketones,Urine Negative (Negative); Leukocyte Esterase,Urine Moderate (Negative); Mucus,Urine Occasional /hpf; Nitrite,Urine Negative (Negative); Protein,Urine Trace (Negative); RBC,Urine 1 /hpf (0-5); Specific Gravity,Urine 1.018 (1.001-1.035); Squamous Epithelial Cell,Urine 3 /hpf (0-4); Urobilinogen,Urine <2.0 mg/dL (<2.0); WBC,Urine 9 /hpf (0-5)
[2022-03-24 23:00] VITALS: BP 137/77; PULSE 78; RESP 18
--- NOTE | 2022-03-25 11:32 | P.MSEPDOC ---
Presenting Problems - Arrival Data Date of Arrival on Unit: 03/24/22 Time of Arrival on Unit: 21:10 Mode of Transport: Wheelchair - Complaint OB-Reason for Admission/Chief Complaint: Rule Out PROM, NST Comment: Pt presents to triage complaining of lower back pain and lower abdominal cramping. Pt states she has had leaking fluid since yesterday (03/23/2022) Medical History - Information : 2 Para: 1 Term: 1 : 0 Abortions: Spontaneous or Elective: 0 Number of Living Children: 1 - Gestational Age Gestational Age by LIS (wks/days): 38 Weeks and 5 Days - History Complications: No Care, Hx. Substance Abuse Comment: Hx THC use Review of Systems - Review of Systems Constitutional: No problems Breast: No problems ENT: No problems Cardiovascular: No problems Respiratory: No problems Gastrointestinal: No problems Genitourinary: No problems Musculoskeletal: No problems Neurological: No problems Skin: No problems Vital Signs - Pulse Right Pulse Rate: 78 - Respirations Respiratory Rate: 18 Oxygen Delivery Method: Room Air O2 Sat by Pulse Oximetry: 100 - Blood Pressure Right Arm Blood Pressure: 137/77 Blood Pressure Mean: 97 Blood Pressure Source: Automatic Cuff Medical Screen Scoring - Cervical Exam Dilation (cm): 2 Effacement (%): 70 Station: -3 Membranes: Intact - Assessment - Baby A Baseline FHR: 140 Heart Rate - NICHD Category: Category I (Normal) NST: Reactive Physician Notification - Physician Notified Physician Notified Date: 03/24/22 Physician Notified Time: 21:50 Physician: Ky Campbell Order Received: No Maternal Triage Index - Non-Urgent/Priority 4 Non-Urgent Priority 4: Yes Criteria Met for Priority 4: Pt presents to triage complaining of lower back pain and lower abdominal cramping. Pt states she has had leaking fluid since yesterday (03/23/2022) Disposition - Disposition OB Disposition: Discharge to home, Written follow up instructions reviewed Discharge Date: 03/24/22 Discharge Time: 22:48 I agree with the RN Medical Screening Exam: Yes Physician's MSE Comment: I have neither seen nor examined the patient. Case reviewed; plan agreed upon as documented in EMR&OBIX.: Yes Diagnosis: RELATED CONDITIONS, UNSPECIFIED, THIRD TRIMESTER
== END 2022-03-24 23:15 | disposition home or self-care (01) ==
LOC: FBPOP 21:10
PROVIDERS: ATTEND Obstetrics & Gynecology
DX: O26.893 Other specified pregnancy related conditions, third trimester (principal); Z3A.38 38 weeks gestation of pregnancy; Z88.1 Allergy status to other antibiotic agents
CPT/HCPCS: 59025; 84112; 81001; G0463; 99213

== ENCOUNTER 2022-03-28 08:02 | Inpatient (IN) | payer OTHER ==
[2022-03-28] MEDS ORDERED: LIDOCAINE 0.5% (PF) 5 MG/ML (50 ML SDV) SQ PRN (08:29)
[2022-03-28] MEDS ORDERED: AMPICILLIN 2,000 MG in SODIUM CHLORIDE 0.9% 100 ML IVPB STA (08:29)
[2022-03-28] MEDS ORDERED: TERBUTALINE 1 MG/ML VIAL SQ PRN (08:29)
[2022-03-28] MEDS ORDERED: LACTATED RINGERS 1,000 ML IV SCH (08:30)
[2022-03-28] MEDS ORDERED: CITRIC ACID-SODIUM CITRATE 15 ML CUP PO ONE (09:02)
--- NOTE | 2022-03-28 09:12 | P.HPOB ---
History of Present Illness H&P Date: 03/28/22 Chief Complaint: Contractions, leaking of fluid, no care This patient is a 21-year-old ? Para 1 female with estimated gestational age 39-1/2 weeks by previous ultrasound whose had no care who presents to labor and delivery with complaints of contractions and leaking fluid. Patient has had no care. She has had some testing done here at the hospital with some triage visits. She's had some vaginal bleeding throughout a lot of her that has been attributed to maternal trauma to her vagina. Patient's previous delivery was last year by Dr. Gates. I did review these records and patient had a significant shoulder dystocia with a 6 lbs. 7 oz. baby but fortunately had no sequela. I have counseled the patient and her family that I'm recommending proceed with section due to previous shoulder dystocia. She understands that this is unpredictable event other than the fact that a previous dystocia and does significantly increase her risk of another one. Review of Systems Genitourinary: Reports Menstruation: Reports as per HPI Past Medical History Past Medical History: Asthma, Seizure Disorder Additional Past Medical History / Comment(s): bipolar disorder, ADHD, OCD, asthma, seizures caused by PTSD, last seizure few days ago History of Any Multi-Drug Resistant Organisms: None Reported Past Surgical History: Adenoidectomy, Ear Surgery, Tonsillectomy Past Anesthesia/Blood Transfusion Reactions: No Reported Reaction Past Psychological History: Anxiety, Bipolar, Depression Smoking Status: Never smoker, Smoker, current status unknown Past Alcohol Use History: None Reported Past Drug Use History: None Reported - Past Family History Mother Family Medical History: Hypertension, Thyroid Disorder Medications and Allergies Home Medications Medication Instructions Recorded Confirmed Type Vit No.179/Iron/Folic 1 tab PO BID 03/05/22 03/24/22 History [ Tablet] Ondansetron [Zofran] 4 mg PO Q8HR PRN 03/13/22 03/13/22 History Allergies Allergy/AdvReac Type Severity Reaction Status Date / Time divalproex sodium Allergy Anaphylaxis Verified 03/28/22 08:28 [From Depakote] Exam Intake and Output 03/27/22 03/28/22 03/28/22 22:59 06:59 14:59 Other: Weight 86.183 kg - OBG Physical Exam Cervix: Cervix is 6 cm dilated and amnio sure is positive Uterus: enlarged Assessment and Plan Assessment: This is a 21-year-old ? Para 1 female 39-1/2 weeks with no care and history of significant shoulder dystocia with previous delivery. I recommended to proceed with primary section immediately for delivery due to risk of another shoulder dystocia and possible injury. Patient has been counseled as well as her mother and they do now wish to proceed with this surgery. Plan is immediate primary low transverse section. I have d iscussed the surgery and risks with the patient was infection, bleeding, possible injury to bowel, bladder, vessels, and/or other organs. All the patient's questions been answered and a written consent obtained. (1) 39 weeks gestation of Current Visit: Yes Status: Acute Code(s): Z3A.39 - 39 WEEKS GESTATION OF SNOMED Code(s): 30411227 (2) No care in current Current Visit: Yes Status: Acute Code(s): O09.30 - SUPRVSN OF PREG W INSUFFICIENT ANTENAT CARE, UNSP TRIMESTER SNOMED Code(s): 289916393 (3) Shoulder dystocia, delivered Current Visit: Yes Status: Acute Code(s): O66.0 - OBSTRUCTED LABOR DUE TO SHOULDER DYSTOCIA SNOMED Code(s): 360784089
[2022-03-28] MEDS ORDERED: ONDANSETRON 4 MG/2 ML VIAL ONE (09:17)
[2022-03-28] MEDS ORDERED: OXYTOCIN 10 UNIT/ML 1 ML VIAL ONE (09:17)
[2022-03-28] MEDS ORDERED: MORPHINE SULFATE (PF) 0.3 MG/0.3 ML SYR ONE (09:17)
[2022-03-28] MEDS ORDERED: ePHEDrine 50 MG/ML 1 ML VIAL ONE (09:17)
[2022-03-28] MEDS ORDERED: fentaNYL (PF) 50 MCG/ML 2 ML AMP ONE (09:17)
[2022-03-28] MEDS ORDERED: KETOROLAC 30 MG/ML 1 ML VIAL ONE (09:17)
[2022-03-28] MEDS ORDERED: ceFAZolin 1,000 MG VIAL ONE (09:17)
[2022-03-28] MEDS ORDERED: ONDANSETRON 4 MG/2 ML VIAL IVP PRN (09:58)
[2022-03-28] MEDS ORDERED: ZOLPIDEM 5 MG TAB PO PRN (09:58)
[2022-03-28] MEDS ORDERED: LANOLIN CREAM 5 GM TUBE TOPICAL PRN (09:58)
[2022-03-28] MEDS ORDERED: METOCLOPRAMIDE 5 MG/ML 2 ML VIAL IVP PRN (09:58)
[2022-03-28] MEDS ORDERED: NALOXONE 0.4 MG/ML 1 ML VIAL IV PRN ×2 (09:58→10:48)
[2022-03-28] MEDS ORDERED: diphenhydrAMINE 50 MG/ML 1 ML VIAL IVP PRN (09:58)
[2022-03-28] MEDS ORDERED: SIMETHICONE 80 MG CHEWABLE PO PRN (09:58)
[2022-03-28] MEDS ORDERED: diphenhydrAMINE 25 MG CAP PO PRN (09:58)
[2022-03-28] MEDS ORDERED: OXYTOCIN 30 UNITS/500 ML NS 30 UNIT in SALINE 1 500ML.BAG IV SCH (10:00)
--- NOTE | 2022-03-28 10:08 | P.OP ---
Date of Procedure: 03/28/22 Preoperative Diagnosis: #1: 39 1/2 week intrauterine . #2: No care. #3: Active labor. #4: Previous significant shoulder dystocia. Postoperative Diagnosis: Same Procedure(s) Performed: Primary low transverse section Anesthesia: spinal Surgeon: Pradeep Blank It Operations Manager #1: Maeve Araujo Estimated Blood Loss (ml): 600 Pathology: other (Placenta) Condition: stable Disposition: PACU Indications for Procedure: Please see dictated H&P for intimate details of this patient's admission. Brief summary is a 21-year-old unknown para 1 female estimated gestational age 39-1/2 weeks who presents with no care in active labor. Review of her previous delivery shows significant shoulder dystocia for 6 lbs. 7 oz. baby. I counseled the patient and her family and recommended to proceed with section for delivery. She is consented to this. I discussed the surgery and risks and risks of infection, bleeding, possible injury bowel, bladder, vessels, and/or other organs. All the patient's questions are answered and a written consent is obtained. Operative Findings: This is a vigorous viable female Apgars 9 and 9 delivery time was 0933 hrs. weight was 7 lbs. 10 oz. Description of Procedure: This patient has a Jones catheter placed to straight drain. She is subsequently taken to the operating room where the appropriate timeout was done. She is sat up and spinal anesthetic is administered without incident. An adequate level of anesthesia she has abdominal prep and drape. Scalpels and taken Pfannenstiel skin incision is made. A second scalpel is taken down the fascia and the fascia scored with a knife. Fascial incision is extended bilaterally using Merino scissors. The fascia is then dissected off the rectus muscles sharply. Rectus muscles are the peritoneum identified and entered sharply. Peritoneal incision extended superior and inferior without difficulty. Bladder blade is then placed. Latter peritoneum was taken sharply off the lower uterine segment. Scalpels then taken a low transverse uterine incision is then made. A hemostat I into the uterine cavity bluntly and there is loss of clear fluid. Uterine incision is then made and bluntly extended. Infant's head is then guided gently through the incision with fundal pressure. Mouth and nares are bulb suctioned. With more fundal pressure with delivery the rest of this 's body. This is a vigorous viable female infant Apgars are 9 and 9 delivery time was 0933 hours. Infant has spontaneous respirations and good cry and grossly appears normal. is 7 lbs. 10 oz. After delivery of the infant the umbilical cord is doubly clamped and cut. The placenta is then manually extracted intact. Uterus is then externalized and uterine incision demarcated with Jain clamps. Uterine incision then closed using 0 Vicryl running locked fashion 2 layers. Excellent hemostasis is noted bladder peritoneum was then reapproximated using a 3-0 Vicryl. Excess fluid is removed from the abdomen and pelvis. Uterus, tubes, ovaries appear normal for term gestation. Uterus placed back into the abdomen. The parietal peritoneum was then identified and closed using 0 Vicryl running fashion. Rectus muscles are reapproximated in 0 Vicryl interrupted fashion. Fascial incision is then closed using 0 PDS. Fascial incision is intact and hemostatic. Subcutaneous tissues and closed using a 3-0 Vicryl. Skin is and closed using gabrielle. All counts are correct 3. There are no complications. Infant and mother are stable delivery room.
[2022-03-28 10:14] LABS: Basophils # (A) 0.1 k/uL (0-0.2); Basophils % (A) 1 %; Eosinophils # (A) 0.4 k/uL (0-0.7); Eosinophils % (A) 4 %; HCT 33.7 % (34.0-46.0); HGB 11.8 gm/dL (11.4-16.0); Lymphocytes # (A) 2.1 k/uL (1.0-4.8); Lymphocytes % (A) 20 %; MCH 30.7 pg (25.0-35.0); MCV 87.7 fL (80.0-100.0); Mean Platelet Volume 9.1; Monocytes # (A) 0.5 k/uL (0-1.0); Monocytes % (A) 5 %; Neutrophils # (A) 7.5 k/uL (1.3-7.7); Neutrophils % (A) 70 %; Platelet Count 201 k/uL (150-450); RBC 3.85 m/uL (3.80-5.40); RDW 13.6 % (11.5-15.5); WBC 10.7 k/uL (3.8-10.6)
[2022-03-28] MEDS ORDERED: MORPHINE SULFATE 2 MG/ML SYRINGE IVP PRN (10:48)
[2022-03-28] MEDS: LACTATED RINGERS 1,000 ML IV SCH ×2 (11:03→15:00)
[2022-03-28 11:13] LABS: Amphetamine Screen,Urine Not Detected (NotDetected); Barbiturate Screen,Urine Not Detected (NotDetected); Benzodiazepines Screen,Urine Not Detected (NotDetected); Cocaine Screen,Urine Not Detected (NotDetected); Methadone Screen, Urine Not Detected (NotDetected); Opiate Screen,Urine Not Detected (NotDetected); Oxycodone Screen, Urine Not Detected (NotDetected); Phencyclidine Screen,Urine Not Detected (NotDetected); Tricyclic Antidepressant,Urine Not Detected (NotDetected); Urn Cannabinoid Scrn Not Detected (NotDetected)
[2022-03-28] MEDS ORDERED: AMPICILLIN 1,000 MG in SODIUM CHLORIDE 0.9% 50 ML IVPB SCH (12:30)
[2022-03-28] MEDS: ACETAMINOPHEN TAB 500 MG TAB PO SCH ×2 (15:00→21:28)
[2022-03-28] MEDS: KETOROLAC 15 MG/ML 1 ML VIAL IVP SCH ×2 (15:52→23:36)
[2022-03-28] MEDS: IBUPROFEN 600 MG TAB PO SCH (16:56)
[2022-03-28] MEDS: SENNOSIDES-DOCUSATE SODIUM 1 EACH TAB PO SCH (20:28)
[2022-03-29] MEDS: IBUPROFEN 600 MG TAB PO SCH ×5 (01:14→21:13)
[2022-03-29] MEDS: LACTATED RINGERS 1,000 ML IV SCH ×2 (04:33→14:23)
--- NOTE | 2022-03-29 06:43 | P.PNOBGPC ---
Subjective - Subjective Patient reports: Reports appetite normal, Reports voiding normally, Reports pain well controlled, Reports ambulating normally : doing well Objective - Vital Signs Latest vital signs: Vital Signs Temp Pulse Resp BP Pulse Ox 03/29/22 04:00 98.0 F 81 15 118/77 03/28/22 23:51 98.5 F 100 16 131/78 98 03/28/22 20:00 98.5 F 79 16 107/67 98 03/28/22 16:00 98.5 F 60 20 121/72 100 03/28/22 15:48 100 03/28/22 15:00 20 03/28/22 13:45 18 03/28/22 12:00 97.6 F 60 16 133/92 100 03/28/22 11:35 16 100 03/28/22 11:30 58 L 16 130/79 100 03/28/22 11:00 96.9 F L 58 L 16 158/89 99 03/28/22 10:48 16 99 03/28/22 10:45 62 16 161/89 97 03/28/22 10:30 59 L 16 149/80 95 03/28/22 10:15 65 16 122/65 100 03/28/22 10:00 97.3 F L 63 16 135/83 99 03/28/22 09:00 97.3 F L 90 18 139/84 99 03/28/22 08:28 97.3 F L 90 18 139/84 99 Intake and Output 03/28/22 03/28/22 03/29/22 14:59 22:59 06:59 Intake Total 480 Output Total 880 750 Balance -880 -270 Intake: Oral 480 Output: Urine 300 750 Uretheral (Jones) 350 Output, Quantitative 580 Blood Loss Other: # Voids 2 1 Weight 86.183 kg - Exam Lungs: bilateral: normal Chest: Normal S1, Normal S2 Extremities: Present: normal Abdomen: Present: normal appearance, soft. Absent: distention, tenderness Incision: Present: normal, dry, intact Uterus: Present: normal, firm - Labs Labs: Abnormal Lab Results - Last 24 Hours (Table) 03/28/22 Range/Units 08:41 WBC 10.7 H (3.8-10.6) k/uL Hct 33.7 L (34.0-46.0) % Assessment and Plan Assessment: Postoperative day #1. Patient is resting without complaints. Vital signs are stable she is afebrile. Uterus is firm nontender she's having normal lochia. Incision is intact and dry. CBC is pending at time of this dictation. I impression is that this is a normal postoperative course. Plan today is to check a CBC, encourage ambulation, allow the patient to shower, advanced to regular diet, and resume normal care. (1) 39 weeks gestation of Current Visit: Yes Status: Acute Code(s): Z3A.39 - 39 WEEKS GESTATION OF SNOMED Code(s): 81316528 (2) No care in current Current Visit: Yes Status: Acute Code(s): O09.30 - SUPRVSN OF PREG W INSUFFICIENT ANTENAT CARE, UNSP TRIMESTER SNOMED Code(s): 901854643 (3) Shoulder dystocia, delivered Current Visit: Yes Status: Acute Code(s): O66.0 - OBSTRUCTED LABOR DUE TO SHOULDER DYSTOCIA SNOMED Code(s): 440824412
--- NOTE | 2022-03-29 06:46 | P.MSEPDOC ---
Presenting Problems - Arrival Data Date of Arrival on Unit: 03/28/22 Time of Arrival on Unit: 08:20 Mode of Transport: Wheelchair - Complaint OB-Reason for Admission/Chief Complaint: Possible Onset of Labor Comment: 39 2/7wks, active labor Medical History - Information : 2 Para: 1 Term: 1 : 0 Abortions: Spontaneous or Elective: 0 Number of Living Children: 1 - Gestational Age Gestational Age by ILS (wks/days): 39 Weeks and 2 Days - History Complications: No Care, Hx. Substance Abuse Comment: THC Review of Systems - Review of Systems Constitutional: No problems Breast: No problems ENT: No problems Cardiovascular: No problems Respiratory: No problems Gastrointestinal: No problems Genitourinary: No problems Musculoskeletal: No problems Neurological: No problems Skin: No problems Vital Signs - Temperature Temperature: 98.0 F Temperature Source: Oral - Pulse Apical Pulse Rate: 81 Pulse Assessment Method: Pulse Oximetry - Respirations Respiratory Rate: 15 Oxygen Delivery Method: Room Air - Blood Pressure Right Arm Blood Pressure: 118/77 Blood Pressure Mean: 90 Blood Pressure Source: Automatic Cuff Medical Screen Scoring - Cervical Exam Dilation (cm): 6.5 Effacement (%): 80 Station: -1 Membranes: Intact - Uterine Contractions Frequency From (mins): 2 Frequency To (mins): 3 Duration From (seconds): 40 Duration To (seconds): 90 Intensity: Moderate Resting: Soft to palpation - Assessment - Baby A Baseline FHR: 135 Heart Rate - NICHD Category: Category I (Normal) NST: Reactive Physician Notification - Physician Notified Physician Notified Date: 03/28/22 Physician Notified Time: 08:14 Physician: Pradeep Blank New Order Received: Yes - Notification Comment Comment: Dr. Blank at bedside, pt in active labor, admitted Maternal Triage Index - Maternal Triage Index Presenting for scheduled procedure w/no complaint: No - Stat/Priority 1 Stat Priority 1: No - Urgent/Priority 2 Urgent Priority 2: No - Prompt/Priority 3 Prompt Priority 3: Yes Criteria Met for Priority 3: 39 2/7wks, active labor Disposition - Disposition OB Disposition: Admit I agree with the RN Medical Screening Exam: Yes Case reviewed; plan agreed upon as documented in EMR&OBIX.: Yes Diagnosis: RELATED CONDITIONS, UNSPECIFIED, THIRD TRIMESTER
--- NOTE | 2022-03-29 07:06 | P.PN ---
Progress Note - Text Progress Note Date: 03/29/22 Patient seen and examined at bedside POD#1 with Duramorph. Patient is resting comfortable in no acute distress. No complications overnight. Able to resume pain management per primary team.
[2022-03-29] MEDS: SENNOSIDES-DOCUSATE SODIUM 1 EACH TAB PO SCH ×2 (08:27→21:13)
[2022-03-29 08:29] LABS: Basophils % (A) 0 %; Eosinophils # (A) 0.3 k/uL (0-0.7); Eosinophils % (A) 3 %; HCT 31.8 % (34.0-46.0); HGB 10.8 gm/dL (11.4-16.0); Lymphocytes # (A) 1.3 k/uL (1.0-4.8); Lymphocytes % (A) 12 %; MCV 91.1 fL (80.0-100.0); Monocytes # (A) 0.5 k/uL (0-1.0); Monocytes % (A) 4 %; Neutrophils % (A) 80 %; Platelet Count 161 k/uL (150-450); RBC 3.49 m/uL (3.80-5.40); RDW 14.1 % (11.5-15.5); WBC 11.2 k/uL (3.8-10.6)
[2022-03-29] MEDS: ACETAMINOPHEN TAB 500 MG TAB PO SCH ×3 (12:16→18:01)
[2022-03-29] MEDS: KETOROLAC 15 MG/ML 1 ML VIAL IVP SCH (14:26)
[2022-03-30] MEDS: ACETAMINOPHEN TAB 500 MG TAB PO SCH ×3 (00:59→09:26)
[2022-03-30] MEDS: IBUPROFEN 600 MG TAB PO SCH (06:22)
--- NOTE | 2022-03-30 06:22 | P.PNOBGPC ---
Subjective - Subjective Patient reports: Reports appetite normal, Reports voiding normally, Reports pain well controlled, Reports ambulating normally : doing well Objective - Vital Signs Latest vital signs: Vital Signs Temp Pulse Resp BP Pulse Ox 03/30/22 00:00 98.3 F 88 16 146/95 98 03/29/22 15:21 97.8 F 91 19 115/67 03/29/22 07:47 98.1 F 69 16 122/82 100 03/29/22 06:46 98.0 F 81 15 118/77 Intake and Output 03/29/22 03/29/22 03/30/22 14:59 22:59 06:59 Intake Total 20 Balance 20 Intake: Oral 20 Other: # Voids 1 1 # Bowel Movements 1 - Exam Lungs: bilateral: normal Chest: Normal S1, Normal S2 Extremities: Present: normal Abdomen: Present: normal appearance, soft. Absent: distention, tenderness Incision: Present: normal, dry, intact Uterus: Present: normal, firm - Labs Labs: Abnormal Lab Results - Last 24 Hours (Table) 03/29/22 Range/Units 08:11 WBC 11.2 H (3.8-10.6) k/uL RBC 3.49 L (3.80-5.40) m/uL Hgb 10.8 L (11.4-16.0) gm/dL Hct 31.8 L (34.0-46.0) % Neutrophils # 9.0 H (1.3-7.7) k/uL Assessment and Plan Assessment: postoperative day #2. Patient is resting without complaints and wishes to go home. Vital signs are stable she's afebrile. Uterus is firm nontender she's having normal lochia. Incision is intact and dry. My impression is that this is a normal course. Plan is to continue routine postoperative care discharge home later today (1) 39 weeks gestation of Current Visit: Yes Status: Acute Code(s): Z3A.39 - 39 WEEKS GESTATION OF SNOMED Code(s): 02446096 (2) No care in current Current Visit: Yes Status: Acute Code(s): O09.30 - SUPRVSN OF PREG W INSUFFICIENT ANTENAT CARE, UNSP TRIMESTER SNOMED Code(s): 480523237 (3) Shoulder dystocia, delivered Current Visit: Yes Status: Acute Code(s): O66.0 - OBSTRUCTED LABOR DUE TO SHOULDER DYSTOCIA SNOMED Code(s): 814865395
--- NOTE | 2022-03-30 06:28 | P.DS ---
Providers Date of admission: 03/28/22 08:18 Expected date of discharge: 03/30/22 Attending physician: Pradeep Blank Primary care physician: Stated None - Discharge Diagnosis(es) (1) 39 weeks gestation of Current Visit: Yes Status: Acute (2) No care in current Current Visit: Yes Status: Acute (3) Shoulder dystocia, delivered Current Visit: Yes Status: Acute Hospital Course: please see dictated H&P for intimate details of this patient's admission. In brief summary this is a 21-year-old ? para 1 female who presented to labor and delivery with no care in active labor. Review of her previous delivery note showed a significant shoulder dystocia with her previous delivery and I recommended she proceed with section for delivery. Patient underwent a primary low transverse section for viable female . Please see dictated delivery note. day #1 patient is without complaints. day #2 she is felt be stable for discharge home follow up with me in 1 week. Procedures: pprimary low transverse section Patient Condition at Discharge: Good Plan - Discharge Summary New Discharge Prescriptions: New Ibuprofen [Motrin] 600 mg PO Q6H #30 tab oxyCODONE HCL [OxyIR] 5 mg PO Q4HR PRN #18 tab PRN Reason: Pain Scale 4 - 6 No Action Vit No.179/Iron/Folic [ Tablet] 1 tab PO BID Discharge Medication List Vit No.179/Iron/Folic [ Tablet] 1 tab PO BID 03/05/22 [History] Ibuprofen [Motrin] 600 mg PO Q6H #30 tab 03/30/22 [Rx] oxyCODONE HCL [OxyIR] 5 mg PO Q4HR PRN #18 tab 03/30/22 [Rx] Follow up Appointment(s)/Referral(s): Pradeep Blank MD [STAFF PHYSICIAN] - 1 Week (please see me also in 6 weeks for check) Patient Instructions/Handouts: (DC) Activity/Diet/Wound Care/Special Instructions: no heavy lifting or strenuous activity for 6 weeks. No intercourse or anything per vagina for 6 weeks. Please call if any fever, chills, excessive vaginal bleeding, and/or abdominal pain. Discharge Disposition: HOME SELF-CARE
[2022-03-30 07:54] VITALS: BP 131/86; PULSE 90; RESP 18; TEMP 98.5
[2022-03-30] MEDS: SENNOSIDES-DOCUSATE SODIUM 1 EACH TAB PO SCH (09:27)
== END 2022-03-30 12:00 | disposition home or self-care (01) | DRG 787 ==
LOC: FBPOP 08:02 → 4FBP 08:18
PROVIDERS: ADMIT Obstetrics & Gynecology; ATTEND Obstetrics & Gynecology
PROC: 4A0HXCZ Measurement of Products of Conception, Cardiac Rate, External Approach (ICD-10-PCS; 2022-03-28)
PROC: 10D00Z1 Extraction of Products of Conception, Low, Open Approach (ICD-10-PCS; principal; 2022-03-28 09:25)
DX: O66.0 Obstructed labor due to shoulder dystocia (principal); O99.354 Diseases of the nervous system complicating childbirth; F31.9 Bipolar disorder, unspecified; F42.9 Obsessive-compulsive disorder, unspecified; F43.10 Post-traumatic stress disorder, unspecified; G40.909 Epilepsy, unspecified, not intractable, without status epilepticus; F90.9 Attention-deficit hyperactivity disorder, unspecified type; J45.909 Unspecified asthma, uncomplicated; O99.344 Other mental disorders complicating childbirth; O99.52 Diseases of the respiratory system complicating childbirth; Z37.0 Single live birth; Z3A.39 39 weeks gestation of pregnancy; Z88.8 Allergy status to other drugs, medicaments and biological substances
CPT/HCPCS: 59025; 80306; 84112; 85025; 86850; 86900; 86901; 99213

== ENCOUNTER 2022-11-14 09:18 | Emergency (ER) | payer OTHER ==
[2022-11-14 09:31] VITALS: RESP 16
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
[2022-11-14 10:28] LABS: Appearance,Urine Cloudy (Clear); Bilirubin,Urine Negative (Negative); Blood,Urine Negative (Negative); Color,Urine Colorless; Glucose,Urine (UA) Negative (Negative); Ketones,Urine Negative (Negative); Leukocyte Esterase,Urine Moderate (Negative); Mucus,Urine Rare /hpf; Nitrite,Urine Negative (Negative); PH, Urine 6.5 (5.0-8.0); Protein,Urine Negative (Negative); RBC,Urine 1 /hpf (0-5); Specific Gravity,Urine 1.014 (1.001-1.035); Squamous Epithelial Cell,Urine 12 /hpf (0-4); Urobilinogen,Urine <2.0 mg/dL (<2.0); WBC,Urine 3 /hpf (0-5)
--- NOTE | 2022-11-14 10:38 | US ---
EXAMINATION TYPE: US OB <= 14 wk twins DATE OF EXAM: 11/14/2022 COMPARISON: NONE CLINICAL INDICATION: Female, 21 years old with history of pain, bleeding; Spotting EXAM PERFORMED: Transabdominal (TA) EXAM MEASUREMENTS: GESTATIONAL AGE / DATING Physician Established: Not yet established Dates by LMP: (8 weeks/1 days) EDC: 06/25/2023 Dates by First Scan: No previous this is first scan Dates by Current Scan for Baby A: (7 weeks/2 days) EDC: 07/01/2023 Dates by Current Scan for Baby B: (7 weeks/2 days) EDC: 07/01/2023 MATERNAL ANATOMY Uterus: 12.2 x 7.1 x 8.3cm Right Ovary: 3.2 x 1.9 x 1.5cm Left Ovary: 2.9 x 1.7 x 2.1cm Post CDS / Adnexa: small amount of free fluid in posterior cul de sac Presence of free fluid: yes Presence of corpus luteal cyst: left ovary - 1.4 x 1.4 x 1.2cm Presence of subchorionic bleed: yes - 2.0 x 0.8 x 2.5cm Presence of two separate gestational sacs: no GESTATION / SURVEY TWIN A CRL: 1.1cm (7 wks/2 days) Yolk Sac (normal less than 6mm): 4.9mm Heart Rate: 156 bpm Rhythm: Normal IUP: Viable IUP TWIN B CRL: 1.1cm (7 wks/2 days) Yolk Sac (normal less than 6mm): 4.0mm Heart Rate: 153 bpm Rhythm: Normal IUP: Viable IUP Date of LMP: 09/18/2022 Beta HcG (if available): Not available at time of exam IMPRESSION: 1. Viable twin pregnancies 2. Small subchorionic bleed measuring 3 no adnexal abnormalities. 4. Small amount of fluid in the cul-de-sac.
[2022-11-14 11:38] VITALS: BP 126/78; PULSE 72; TEMP 98.3
== END 2022-11-14 11:34 | disposition home or self-care (01) ==
LOC: EC 09:18
DX: O30.001 Twin pregnancy, unspecified number of placenta and unspecified number of amniotic sacs, first trimester (principal); O46.91 Antepartum hemorrhage, unspecified, first trimester; O99.511 Diseases of the respiratory system complicating pregnancy, first trimester; J45.909 Unspecified asthma, uncomplicated; O99.331 Smoking (tobacco) complicating pregnancy, first trimester; F17.290 Nicotine dependence, other tobacco product, uncomplicated; O99.321 Drug use complicating pregnancy, first trimester; F12.90 Cannabis use, unspecified, uncomplicated; Z86.59 Personal history of other mental and behavioral disorders; Z3A.01 Less than 8 weeks gestation of pregnancy; Z88.8 Allergy status to other drugs, medicaments and biological substances
CPT/HCPCS: 76801; 76802; 81001; 99284

== ENCOUNTER 2022-12-13 18:06 | Emergency (ER) | payer OTHER ==
[2022-12-13 18:52] VITALS: BP 114/76; PULSE 75; RESP 18; TEMP 98.2
--- NOTE | 2022-12-13 19:04 | ED ---
Fall HPI <Jen Jaramillo - Last Filed: 12/13/22 22:41> - General Source: patient Mode of arrival: ambulatory <Nicolasa Ivy - Last Filed: 12/15/22 07:12> - General Chief Complaint: Fall Stated Complaint: STI TEST 12WKS PREG FELL MIGRAINE Time Seen by Provider: 12/13/22 19:01 - History of Present Illness Initial Comments: Patient is a 21-year-old female who presents the emergency department for multiple complaints. Patient reports headache for 2 days. States she had a syncopal episode today and now has belly pain. She is at 12 weeks with twins. She denies vaginal bleeding. Patient also requesting STI testing states she was told her boyfriend that tested positive for possible gonorrhea, chlamydia, or syphilis. Patient is having vaginal discharge which is yellow and green in color. She denies fever. (Nicolasa Ivy) - Related Data Home Medications Medication Instructions Recorded Confirmed Vit No.179/Iron/Folic 1 tab PO BID 03/05/22 03/28/22 [ Tablet] Previous Rx's Medication Instructions Recorded Ibuprofen [Motrin] 600 mg PO Q6H #30 tab 03/30/22 oxyCODONE HCL [OxyIR] 5 mg PO Q4HR PRN #18 tab 03/30/22 Allergies Allergy/AdvReac Type Severity Reaction Status Date / Time divalproex sodium Allergy Anaphylaxis Verified 12/13/22 18:44 [From Depakote] Review of Systems ROS Other: All systems not noted in ROS Statement are negative. <Jen Jaramillo - Last Filed: 12/13/22 22:41> ROS Other: All systems not noted in ROS Statement are negative. <Nicolasa Ivy - Last Filed: 12/15/22 07:12> ROS Statement: Those systems with pertinent positive or pertinent negative responses have been documented in the HPI. Past Medical History Past Medical History: Asthma, Seizure Disorder Additional Past Medical History / Comment(s): bipolar disorder, ADHD, OCD, asthma, seizures caused by PTSD, last seizure few days ago History of Any Multi-Drug Resistant Organisms: None Reported Past Surgical History: Adenoidectomy, Ear Surgery, Tonsillectomy Past Anesthesia/Blood Transfusion Reactions: No Reported Reaction Past Psychological History: Anxiety, Bipolar, Depression, PTSD Smoking Status: Vaper Past Alcohol Use History: None Reported Past Drug Use History: None Reported, Marijuana - Past Family History Mother Family Medical History: Hypertension, Thyroid Disorder <Nicolasa Ivy - Last Filed: 12/15/22 07:12> General Exam Limitations: no limitations <Nicolasa Ivy - Last Filed: 12/15/22 07:12> - General Exam Comments Initial Comments: Visual Physical Exam Vital signs reviewed General: Well-appearing, nontoxic, no acute distress. Head: Normocephalic, atraumatic Eyes: PERRLA, EOMI ENT: Airway patent Chest: Nonlabored breathing Skin: No visual rash, normal skin tone Neuro: Alert and oriented 3 Musculoskeletal: No gross abnormalities (Nicolasa Ivy) Course Vital Signs 12/13/22 18:40 Temperature 98.2 F Pulse Rate 75 Respiratory 18 Rate Blood Pressure 114/76 O2 Sat by Pulse 97 Oximetry Medical Decision Making - Lab Data Result diagrams: 12/13/22 12:23 12/13/22 20:09 <Jen Jaramillo - Last Filed: 12/13/22 22:41> - Lab Data Result diagrams: 12/13/22 12:23 12/13/22 20:09 <Nicolasa Ivy - Last Filed: 12/15/22 07:12> - Medical Decision Making I performed the QuickNote portion of this chart - Nciolasa Ivy PA-C (Nicolasa Ivy) - Lab Data Lab Results 12/13/22 12/13/22 12/13/22 Range/Units 12:23 12:23 20:09 WBC 9.8 (3.8-10.6) k/uL RBC 4.12 (3.80-5.40) m/uL Hgb 12.9 (11.4-16.0) gm/dL Hct 36.6 (34.0-46.0) % MCV 88.8 (80.0-100.0) fL MCH 31.4 (25.0-35.0) pg MCHC 35.4 (31.0-37.0) g/dL RDW 13.2 (11.5-15.5) % Plt Count 181 (150-450) k/uL MPV 8.4 Neutrophils % 60 % Lymphocytes % 27 % Monocytes % 4 % Eosinophils % 8 % Basophils % 0 % Neutrophils # 5.9 (1.3-7.7) k/uL Lymphocytes # 2.7 (1.0-4.8) k/uL Monocytes # 0.4 (0-1.0) k/uL Eosinophils # 0.7 (0-0.7) k/uL Basophils # 0.0 (0-0.2) k/uL Sodium 136 L (137-145) mmol/L Potassium 4.0 (3.5-5.1) mmol/L Chloride 104 (98-107) mmol/L Carbon Dioxide 20 L (22-30) mmol/L Anion Gap 12 mmol/L BUN 7 (7-17) mg/dL Creatinine 0.48 L (0.52-1.04) mg/dL Est GFR (CKD-EPI)AfAm >90 (>60 ml/min/1.73 sqM) Est GFR (CKD-EPI)NonAf >90 (>60 ml/min/1.73 sqM) Glucose 99 (74-99) mg/dL Calcium 9.1 (8.4-10.2) mg/dL Magnesium 1.8 (1.6-2.3) mg/dL Total Bilirubin 0.4 (0.2-1.3) mg/dL AST 20 (14-36) U/L ALT 18 (4-34) U/L Alkaline Phosphatase 48 (38-126) U/L Total Protein 6.8 (6.3-8.2) g/dL Albumin 4.2 (3.5-5.0) g/dL Lipase 343 H (23-300) U/L HCG, Quant 198604.0 mIU/mL Urine Color Urine Appearance (Clear) Urine pH (5.0-8.0) Ur Specific [place] (1.001-1.035) Urine Protein (Negative) Urine Glucose (UA) (Negative) Urine Ketones (Negative) Urine Blood (Negative) Urine Nitrite (Negative) Urine Bilirubin (Negative) Urine Urobilinogen (<2.0) mg/dL Ur Leukocyte Esterase (Negative) Urine RBC (0-5) /hpf Urine WBC (0-5) /hpf Ur Squamous Epith Cells (0-4) /hpf Urine Bacteria (None) /hpf Urine Mucus (None) /hpf Treponema pallidum Ab Nonreactive Trichomonas Ag (Rapid) (Negative) 12/13/22 12/13/22 Range/Units 20:30 22:23 WBC (3.8-10.6) k/uL RBC (3.80-5.40) m/uL Hgb (11.4-16.0) gm/dL Hct (34.0-46.0) % MCV (80.0-100.0) fL MCH (25.0-35.0) pg MCHC (31.0-37.0) g/dL RDW (11.5-15.5) % Plt Count (150-450) k/uL MPV Neutrophils % % Lymphocytes % % Monocytes % % Eosinophils % % Basophils % % Neutrophils # (1.3-7.7) k/uL Lymphocytes # (1.0-4.8) k/uL Monocytes # (0-1.0) k/uL Eosinophils # (0-0.7) k/uL Basophils # (0-0.2) k/uL Sodium (137-145) mmol/L Potassium (3.5-5.1) mmol/L Chloride (98-107) mmol/L Carbon Dioxide (22-30) mmol/L Anion Gap mmol/L BUN (7-17) mg/dL Creatinine (0.52-1.04) mg/dL Est GFR (CKD-EPI)AfAm (>60 ml/min/1.73 sqM) Est GFR (CKD-EPI)NonAf (>60 ml/min/1.73 sqM) Glucose (74-99) mg/dL Calcium (8.4-10.2) mg/dL Magnesium (1.6-2.3) mg/dL Total Bilirubin (0.2-1.3) mg/dL AST (14-36) U/L ALT (4-34) U/L Alkaline Phosphatase (38-126) U/L Total Protein (6.3-8.2) g/dL Albumin (3.5-5.0) g/dL Lipase (23-300) U/L HCG, Quant mIU/mL Urine Color Light Yellow Urine Appearance Cloudy H (Clear) Urine pH 5.5 (5.0-8.0) Ur Specific [place] 1.015 (1.001-1.035) Urine Protein Negative (Negative) Urine Glucose (UA) Negative (Negative) Urine Ketones Negative (Negative) Urine Blood Negative (Negative) Urine Nitrite Negative (Negative) Urine Bilirubin Negative (Negative) Urine Urobilinogen <2.0 (<2.0) mg/dL Ur Leukocyte Esterase Large H (Negative) Urine RBC 38 H (0-5) /hpf Urine WBC 139 H (0-5) /hpf Ur Squamous Epith Cells 8 H (0-4) /hpf Urine Bacteria Rare H (None) /hpf Urine Mucus Occasional H (None) /hpf Treponema pallidum Ab Trichomonas Ag (Rapid) Positive H (Negative) Disposition <Jen Jaramillo - Last Filed: 12/13/22 22:41> Is patient prescribed a controlled substance at d/c from ED?: No <Nicolasa Ivy - Last Filed: 12/15/22 07:12> Clinical Impression: Trichomonas vaginitis Disposition: HOME SELF-CARE Referrals: None,Stated [Primary Care Provider] - 1-2 days
--- NOTE | 2022-12-13 20:09 | US ---
EXAMINATION TYPE: US OB <= 14 wk twins DATE OF EXAM: 12/13/2022 COMPARISON: 11/14/22 CLINICAL INDICATION: Female, 21 years old with history of pain; Pt fell today face first. Pt states m ild cramping and spotting EXAM PERFORMED: Transabdominal (TA) EXAM MEASUREMENTS: GESTATIONAL AGE / DATING Physician Established: (11 weeks/6 days) EDC: 06/28/23 Dates by First Scan: 11/14/22 (11 weeks/3 days) EDC: 07/01/23 Dates by Current Scan for Baby A: (12 weeks/0 days) EDC: 06/27/23 Dates by Current Scan for Baby B: (11 weeks/5 days) EDC: 06/29/23 MATERNAL ANATOMY Uterus: 11.1 x 6.6 x 9.1cm Right Ovary: Not seen due to bowel gas Left Ovary: Not seen due to bowel gas Post CDS / Adnexa: Peristalsing bowel Presence of free fluid: No Presence of corpus luteal cyst: Not seen Presence of subchorionic bleed: No Presence of two separate gestational sacs: No GESTATION / SURVEY TWIN A CRL: 5.4 12(wks/0days) Yolk Sac (normal less than 6mm): 3.0mm Heart Rate: 155 bpm Rhythm: Normal IUP: Viable IUP TWIN B CRL: 5.1cm (11wks/5days) Yolk Sac (normal less than 6mm): Not seen Heart Rate: 187 bpm Rhythm: Normal IUP: Viable IUP Date of LMP: Unknown Beta HcG (if available): N/A 2 live fetuses seen in one gestational sac. Both babies were very active during exam. IMPRESSION: Twin live fetuses seen in one gestational sac. Follow-up imaging should be performed at a dedicated imaging center.
[2022-12-13 20:40] LABS: Basophils % (A) 0 %; Eosinophils # (A) 0.7 k/uL (0-0.7); Eosinophils % (A) 8 %; HCT 36.6 % (34.0-46.0); HGB 12.9 gm/dL (11.4-16.0); Lymphocytes # (A) 2.7 k/uL (1.0-4.8); Lymphocytes % (A) 27 %; MCH 31.4 pg (25.0-35.0); MCHC 35.4 g/dL (31.0-37.0); MCV 88.8 fL (80.0-100.0); Mean Platelet Volume 8.4; Monocytes # (A) 0.4 k/uL (0-1.0); Monocytes % (A) 4 %; Neutrophils # (A) 5.9 k/uL (1.3-7.7); Neutrophils % (A) 60 %; Platelet Count 181 k/uL (150-450); RBC 4.12 m/uL (3.80-5.40); RDW 13.2 % (11.5-15.5); WBC 9.8 k/uL (3.8-10.6)
[2022-12-13 20:53] LABS: Appearance,Urine Cloudy (Clear); Bacteria,Urine Rare /hpf; Bilirubin,Urine Negative (Negative); Blood,Urine Negative (Negative); Color,Urine Light Yellow; Glucose,Urine (UA) Negative (Negative); Ketones,Urine Negative (Negative); Leukocyte Esterase,Urine Large (Negative); Mucus,Urine Occasional /hpf; Nitrite,Urine Negative (Negative); PH, Urine 5.5 (5.0-8.0); Protein,Urine Negative (Negative); RBC,Urine 38 /hpf (0-5); Specific Gravity,Urine 1.015 (1.001-1.035); Squamous Epithelial Cell,Urine 8 /hpf (0-4); Urobilinogen,Urine <2.0 mg/dL (<2.0); WBC,Urine 139 /hpf (0-5)
[2022-12-13 20:59] LABS: ALT 18 U/L (4-34); AST 20 U/L (14-36); African American GFR (CKD) >90 (>60 ml/min/1.73 sqM); Albumin 4.2 g/dL (3.5-5.0); Alkaline Phosphatase 48 U/L (38-126); Anion Gap 12 mmol/L; Blood Urea Nitrogen 7 mg/dL (7-17); Calcium 9.1 mg/dL (8.4-10.2); Carbon Dioxide 20 mmol/L (22-30); Chloride 104 mmol/L (98-107); Glucose 99 mg/dL (74-99); Lipase 343 U/L (23-300); Magnesium 1.8 mg/dL (1.6-2.3); Non-African American GFR(CKD) >90 (>60 ml/min/1.73 sqM); Sodium 136 mmol/L (137-145); Total Bilirubin 0.4 mg/dL (0.2-1.3); Total Protein 6.8 g/dL (6.3-8.2)
[2022-12-13] MEDS ORDERED: ACETAMINOPHEN TAB 325 MG TAB PO STA (22:35)
[2022-12-14] MEDS ORDERED: cefTRIAXone 1,000 MG VIAL (IM USE) IM ONE (00:30)
[2022-12-14] MEDS ORDERED: AZITHROMYCIN 500 MG TAB ONE (00:30)
[2022-12-14] MEDS ORDERED: metroNIDAZOLE 500 MG TAB ONE (00:30)
[2022-12-15 10:11] LABS: Chlamydia trachomatis rRNA Not detected; Neisseria gonorrhoeae rRNA Not detected
[2022-12-15 14:06] LABS: N. gonorrhoeae,PCR Negative (Negative)
[2022-12-15 14:15] LABS: C. trachomatis,PCR Negative (Negative)
== END 2022-12-14 00:28 | disposition home or self-care (01) ==
LOC: EC 18:06
DX: O98.311 Other infections with a predominantly sexual mode of transmission complicating pregnancy, first trimester (principal); O99.511 Diseases of the respiratory system complicating pregnancy, first trimester; O99.331 Smoking (tobacco) complicating pregnancy, first trimester; A59.01 Trichomonal vulvovaginitis; J45.909 Unspecified asthma, uncomplicated; F17.290 Nicotine dependence, other tobacco product, uncomplicated; F12.90 Cannabis use, unspecified, uncomplicated; Z88.8 Allergy status to other drugs, medicaments and biological substances; Z86.59 Personal history of other mental and behavioral disorders; Z3A.12 12 weeks gestation of pregnancy
CPT/HCPCS: 36415; 76801; 76802; 80053; 81001; 83690; 83735; 84702; 85025; 86780; 87070; 87491; 87591; 87808; 93005; 96372; 99284

== ENCOUNTER 2023-01-13 11:33 | Emergency (ER) | payer OTHER ==
[2023-01-13 11:46] VITALS: TEMP 97.8
[2023-01-13 12:33] LABS: Basophils % (A) 0 %; Eosinophils # (A) 0.7 k/uL (0-0.7); Eosinophils % (A) 10 %; HCT 34.3 % (34.0-46.0); HGB 12.2 gm/dL (11.4-16.0); Lymphocytes # (A) 1.7 k/uL (1.0-4.8); Lymphocytes % (A) 23 %; MCH 31.9 pg (25.0-35.0); MCHC 35.6 g/dL (31.0-37.0); MCV 89.5 fL (80.0-100.0); Mean Platelet Volume 8.3; Monocytes # (A) 0.3 k/uL (0-1.0); Monocytes % (A) 4 %; Neutrophils # (A) 4.4 k/uL (1.3-7.7); Neutrophils % (A) 62 %; Platelet Count 181 k/uL (150-450); RBC 3.83 m/uL (3.80-5.40); RDW 13.7 % (11.5-15.5); WBC 7.1 k/uL (3.8-10.6)
--- NOTE | 2023-01-13 12:42 | ED ---
Female Urogenital HPI - General Chief complaint: Vaginal Bleeding Stated complaint: Vaginal bleeding Time Seen by Provider: 01/13/23 11:53 Source: patient, RN notes reviewed Mode of arrival: ambulatory Limitations: no limitations - History of Present Illness Initial comments: This is a 22-year-old female who presents to the emergency department for vagin al bleeding in . Patient states that she is 16 weeks with twins. She's had spotting for the last 3 days. Denies any pain associated with this. She is not passing any clots. Patient has 2 children at home. This is her second twin , however the first twin resulted in an early miscarriage. She is still not fully established with an ARTS ADMINISTRATOR OR MANAGER and is waiting for an appointment next month in [place]. Additionally, states that she had a syncopal episode today. Reports a history of potential stress-induced seizures and believes that she had another one of these episodes today. Unsure how long she was unconscious for and states that there were no witnesses. Not taking any blood thinners. Currently feeling fine in that regard and is mainly concerned about the spotting. MD Complaint: vaginal bleeding Onset/Timin -: days(s) - Related Data Home Medications Medication Instructions Recorded Confirmed Vit No.179/Iron/Folic 1 tab PO BID 03/05/22 03/28/22 [ Tablet] Previous Rx's Medication Instructions Recorded Ibuprofen [Motrin] 600 mg PO Q6H #30 tab 03/30/22 oxyCODONE HCL [OxyIR] 5 mg PO Q4HR PRN #18 tab 03/30/22 Allergies Allergy/AdvReac Type Severity Reaction Status Date / Time divalproex sodium Allergy Anaphylaxis Verified 01/13/23 11:45 [From Depakote] Review of Systems ROS Statement: Those systems with pertinent positive or pertinent negative responses have been documented in the HPI. ROS Other: All systems not noted in ROS Statement are negative. Past Medical History Past Medical History: Asthma, Seizure Disorder Additional Past Medical History / Comment(s): bipolar disorder, ADHD, OCD, a sthma, seizures caused by PTSD, last seizure few days ago History of Any Multi-Drug Resistant Organisms: None Reported Past Surgical History: Adenoidectomy, Ear Surgery, Tonsillectomy Past Anesthesia/Blood Transfusion Reactions: No Reported Reaction Past Psychological History: Anxiety, Bipolar, Depression, PTSD Smoking Status: Vaper Past Alcohol Use History: None Reported Past Drug Use History: None Reported, Marijuana - Past Family History Mother Family Medical History: Hypertension, Thyroid Disorder General Exam Limitations: no limitations General appearance: alert, in no apparent distress Head exam: Present: atraumatic, normocephalic, normal inspection Eye exam: Present: normal appearance, PERRL, EOMI. Absent: scleral icterus, conjunctival injection, periorbital swelling Respiratory exam: Present: normal lung sounds bilaterally. Absent: respiratory distress, wheezes, rales, rhonchi, stridor Cardiovascular Exam: Present: regular rate, normal rhythm, normal heart sounds. Absent: systolic murmur, diastolic murmur, rubs, gallop, clicks Neurological exam: Present: alert, oriented X3, CN II-XII intact Psychiatric exam: Present: normal affect, normal mood Skin exam: Present: warm, dry, intact, normal color. Absent: rash Course Vital Signs 01/13/23 01/13/23 11:41 14:12 Temperature 97.8 F Pulse Rate 98 72 Respiratory 17 18 Rate Blood Pressure 106/67 110/64 O2 Sat by Pulse 97 98 Oximetry Medical Decision Making - Medical Decision Making This is a 22-year-old female who presents to the emergency department for vaginal bleeding in . Was pt. sent in by a medical professional or institution? @ -No Did you speak to anyone other than the patient for history? @ -No Did you review nursing and triage notes? @ -Yes, and I agree, it is accurate with regards to the patient's symptoms. Were old charts reviewed? @ -No Differential Diagnosis? @ -Differential Vaginal Bleeding: Spontaneous , threatened , molar , ectopic , incompetent cervix, placenta previa, uterine rupture, dysfunctional uterine bleeding, hemorrhage, uterine fibroids, malignancy, coagulopathy, PID, cervicitis, adenomyosis, vaginal trauma, this is not meant to be an all-i nclusive list. EKG interpreted by me (3pts min.)? @ -Not obtained X-rays interpreted by me (1pt min.)? @ -Not obtained CT interpreted by me (1pt min.)? @ -Not obtained U/S interpreted by me (1pt. min.)? @ -Obstetrics US obtained. My interpretation identifies live twin pregnancies. What testing was considered but not performed? (CT, X-rays, U/S, labs)? Why? @ -None What meds were considered but not given? Why? @ -None Did you discuss the management of the patient with other professionals? @ -No Did you reconcile home meds? @ -No Was smoking cessation discussed for >3mins.? @ -No Was critical care preformed (if so, how long)? @ -No Were there social determinants of health that impacted care today? How? (Homelessness, low income, unemployed, alcoholism, drug addiction, transportation, low edu. Level, literacy, decrease access to med. care, assisted, rehab)? @ -No Was there de-escalation of care discussed even if they declined? (Discuss DNR or withdrawal of care, Hospice)? @ -No What co-morbidities impacted this encounter? (DM, HTN, Smoking, COPD, CAD, Cancer, CVA, Hep., AIDS, mental health diagnosis, sleep apnea, morbid obesity)? @ -, seizures Was patient admitted / discharged? @ -Discharged. Lab work obtained and found to be unremarkable. Urinalysis negative for signs of infection. There was also no blood identified in the urine. Urine sent for culture. She is Rh+ and no RhoGAM is indicated. Obstetrics ultrasound obtained. This revealed a live twin . There was no evidence of a subchorionic hematoma or other potential causes of the bleeding. While she may have hit her head during the syncopal event, the episode is consistent with prior seizures for the patient and she currently has a GCS of 15 and is not on any blood thinners, and no imaging of the brain is indicated for the minor blunt head trauma. Patient is advised to contact the ARTS ADMINISTRATOR OR MANAGER's office to alert them of her appointment today to see if they would like her to be seen for a sooner follow-up appointment. She was otherwise discharged home in stable condition. Undiagnosed new problem with uncertain prognosis? @ -None Drug Therapy requiring intensive monitoring for toxicity (Heparin, Nitro, Insulin, Cardizem)? @ -None Were any procedures done? @ -None Diagnosis/symptom? @ -Threatened miscarriage, minor blunt head trauma Acute, or Chronic, or Acute on Chronic? @ -Acute Uncomplicated (without systemic symptoms) or Complicated (systemic symptoms)? @ -Uncomplicated Side effects of treatment? @ -None Exacerbation, Progression, or Severe Exacerbation] @ -Not applicable Poses a threat to life or bodily function? @ -No Return precautions reviewed in depth, the patient is instructed to return to the emergency department with any new, worsening, or concerning symptoms. Patient verbalized understanding. This case was discussed in detail with the attending ED physician, Dr. Hou. Presentation, findings, and treatment plan discussed in detail as well. - Lab Data Result diagrams: 01/13/23 12:13 01/13/23 12:13 Lab Results 01/13/23 01/13/23 01/13/23 Range/Units 12:13 12:13 12:13 WBC 7.1 (3.8-10.6) k/uL RBC 3.83 (3.80-5.40) m/uL Hgb 12.2 (11.4-16.0) gm/dL Hct 34.3 (34.0-46.0) % MCV 89.5 (80.0-100.0) fL MCH 31.9 (25.0-35.0) pg MCHC 35.6 (31.0-37.0) g/dL RDW 13.7 (11.5-15.5) % Plt Count 181 (150-450) k/uL MPV 8.3 Neutrophils % 62 % Lymphocytes % 23 % Monocytes % 4 % Eosinophils % 10 % Basophils % 0 % Neutrophils # 4.4 (1.3-7.7) k/uL Lymphocytes # 1.7 (1.0-4.8) k/uL Monocytes # 0.3 (0-1.0) k/uL Eosinophils # 0.7 (0-0.7) k/uL Basophils # 0.0 (0-0.2) k/uL PT 10.0 (10.0-12.5) sec INR 0.9 (<1.2) APTT 23.2 (22.0-30.0) sec Sodium (137-145) mmol/L Potassium (3.5-5.1) mmol/L Chloride (98-107) mmol/L Carbon Dioxide (22-30) mmol/L Anion Gap mmol/L BUN (7-17) mg/dL Creatinine (0.52-1.04) mg/dL Est GFR (CKD-EPI)AfAm (>60 ml/min/1.73 sqM) Est GFR (CKD-EPI)NonAf (>60 ml/min/1.73 sqM) Glucose (74-99) mg/dL Calcium (8.4-10.2) mg/dL Total Bilirubin (0.2-1.3) mg/dL AST (14-36) U/L ALT (4-34) U/L Alkaline Phosphatase (38-126) U/L Total Protein (6.3-8.2) g/dL Albumin (3.5-5.0) g/dL HCG, Quant mIU/mL Urine Color Yellow Urine Appearance Clear (Clear) Urine pH 6.0 (5.0-8.0) Ur Specific [place] 1.029 (1.001-1.035) Urine Protein Trace H (Negative) Urine Glucose (UA) Negative (Negative) Urine Ketones Negative (Negative) Urine Blood Negative (Negative) Urine Nitrite Negative (Negative) Urine Bilirubin Negative (Negative) Urine Urobilinogen <2.0 (<2.0) mg/dL Ur Leukocyte Esterase Large H (Negative) Urine RBC <1 (0-5) /hpf Urine WBC 5 (0-5) /hpf Ur Squamous Epith Cells 6 H (0-4) /hpf Urine Bacteria Rare H (None) /hpf Hyaline Casts 1 (0-2) /lpf Urine Mucus Moderate H (None) /hpf Blood Type Blood Type Recheck Bld Type Recheck Status 01/13/23 01/13/23 Range/Units 12:13 12:13 WBC (3.8-10.6) k/uL RBC (3.80-5.40) m/uL Hgb (11.4-16.0) gm/dL Hct (34.0-46.0) % MCV (80.0-100.0) fL MCH (25.0-35.0) pg MCHC (31.0-37.0) g/dL RDW (11.5-15.5) % Plt Count (150-450) k/uL MPV Neutrophils % % Lymphocytes % % Monocytes % % Eosinophils % % Basophils % % Neutrophils # (1.3-7.7) k/uL Lymphocytes # (1.0-4.8) k/uL Monocytes # (0-1.0) k/uL Eosinophils # (0-0.7) k/uL Basophils # (0-0.2) k/uL PT (10.0-12.5) sec INR (<1.2) APTT (22.0-30.0) sec Sodium 136 L (137-145) mmol/L Potassium 4.0 (3.5-5.1) mmol/L Chloride 107 (98-107) mmol/L Carbon Dioxide 19 L (22-30) mmol/L Anion Gap 10 mmol/L BUN 9 (7-17) mg/dL Creatinine 0.44 L (0.52-1.04) mg/dL Est GFR (CKD-EPI)AfAm >90 (>60 ml/min/1.73 sqM) Est GFR (CKD-EPI)NonAf >90 (>60 ml/min/1.73 sqM) Glucose 88 (74-99) mg/dL Calcium 9.1 (8.4-10.2) mg/dL Total Bilirubin 0.5 (0.2-1.3) mg/dL AST 20 (14-36) U/L ALT 17 (4-34) U/L Alkaline Phosphatase 35 L (38-126) U/L Total Protein 6.3 (6.3-8.2) g/dL Albumin 3.6 (3.5-5.0) g/dL HCG, Quant 40277.6 mIU/mL Urine Color Urine Appearance (Clear) Urine pH (5.0-8.0) Ur Specific [place] (1.001-1.035) Urine Protein (Negative) Urine Glucose (UA) (Negative) Urine Ketones (Negative) Urine Blood (Negative) Urine Nitrite (Negative) Urine Bilirubin (Negative) Urine Urobilinogen (<2.0) mg/dL Ur Leukocyte Esterase (Negative) Urine RBC (0-5) /hpf Urine WBC (0-5) /hpf Ur Squamous Epith Cells (0-4) /hpf Urine Bacteria (None) /hpf Hyaline Casts (0-2) /lpf Urine Mucus (None) /hpf Blood Type A Positive Blood Type Recheck A Pos Bld Type Recheck Status No - Radiology Data Radiology results: report reviewed, image reviewed Disposition Clinical Impression: Vaginal bleeding during , Blunt head trauma Disposition: HOME SELF-CARE Instructions (If sedation given, give patient instructions): (ED) Additional Instructions: Return to the emergency department with any new, worsening, or concerning symptoms. Follow up with your ARTS ADMINISTRATOR OR MANAGER as scheduled. You can contact the office as well and let them know that you were seen in the emergency department and see if they would like you to come in for a sooner follow up appointment. Is patient prescribed a controlled substance at d/c from ED?: No Referrals: None,Stated [Primary Care Provider] - 1-2 days
[2023-01-13 12:43] LABS: INR 0.9 (<1.2); Partial Thromboplastin Time 23.2 sec (22.0-30.0)
[2023-01-13 12:49] LABS: ALT 17 U/L (4-34); AST 20 U/L (14-36); African American GFR (CKD) >90 (>60 ml/min/1.73 sqM); Albumin 3.6 g/dL (3.5-5.0); Alkaline Phosphatase 35 U/L (38-126); Anion Gap 10 mmol/L; Blood Urea Nitrogen 9 mg/dL (7-17); Calcium 9.1 mg/dL (8.4-10.2); Carbon Dioxide 19 mmol/L (22-30); Chloride 107 mmol/L (98-107); Glucose 88 mg/dL (74-99); Non-African American GFR(CKD) >90 (>60 ml/min/1.73 sqM); Sodium 136 mmol/L (137-145); Total Bilirubin 0.5 mg/dL (0.2-1.3); Total Protein 6.3 g/dL (6.3-8.2)
--- NOTE | 2023-01-13 13:44 | US ---
EXAMINATION TYPE: US OB >= 14 wk twins DATE OF EXAM: 01/13/2023 COMPARISON: 12/13/2022 CLINICAL INDICATION: Female, 22 years old with history of Vaginal bleeding in ; Fall today, spotting GESTATIONAL AGE / DATING Physician Established: (16 weeks/2 days) EDC: 06/28/23 Dates by LMP: unknown Dates by First Scan: (15 weeks/6 days) EDC: 07/01/23 Dates by Current Scan for Baby A: (17 weeks/1 days) (5 days more than expected compared to ) EDC: 06/22/23 Dates by Current Scan for Baby B: (16 weeks/2 days) (one day more prominent than expected compared t o 12/13/2022) EDC: 06/28/23 GENERAL TWIN SURVEY TWIN A LOCATION in regards to maternal abd: transverse, closer to cervix TWIN B LOCATION in regards to maternal abd: transverse MEMBRANE SEEN: yes (as indicated by the right of way buyer. The provided images do not clearly depict the d ividing membrane). CERVICAL LENGTH (transabdominal; norm > 3.0cm): 3.8 cm TWIN A: SURVEY/BIOMETRY PLACENTA: Anterior PREVIA: No previa RADHA:? 12.1 cm?Normal PRESENTATION: Breech LIE: Transverse with head maternal RT BPD: 3.7cm 17 weeks / 2 days HC: 13.6 cm 17 weeks / 1 days AC: 11.5 cm 17 weeks / 2 days FL: 2.1 cm 16 weeks / 3 days ESTIMATED WEIGHT IN GRAMS: 172 grams ESTIMATED WEIGHT IN LBS/OZS: 0 lbs. 6 oz. WEIGHT PERCENTAGE BASED ON ESTABLISHED DATES: 80% HC/AC: 1.18 Normal FL/AC: 19% HEART RATE: 142 bpm RHYTHM: Normal TWIN B: SURVEY/BIOMETRY PRESENTATION: Breech LIE: Transverse with head maternal RT BPD: 3.4 cm 16 weeks / 4 days HC: 12.6 cm 16 weeks / 3 days AC: 10.2 cm 16 weeks / 2 days FL: 1.9 cm 15 weeks / 5 days ESTIMATED WEIGHT IN GRAMS: 141 grams ESTIMATED WEIGHT IN LBS/OZS: 0 lbs. 5 oz. WEIGHT PERCENTAGE BASED ON ESTABLISHED DATES: 24% HC/AC: 1.24 Normal FL/AC: 19% HEART RATE: 139 bpm RHYTHM: Normal IMPRESSION: 1. Live twin pregnancies. The right of way buyer indicates a dividing membrane but we are not able to identi fy the dividing membrane on the provided images. Recommend dedicated evaluation at a high risk center to determine chorionicity. 2. Estimated gestational age of 16 weeks 2 days. * Twin A shows 5 days more than expected compared to last month. Currently the 80th percentile for w eight. * Twin B shows one day more prominent than expected compared to last month. Currently 24th percentil e for weight. 3. Complete survey recommended at 18-20 weeks. This should be performed at a high risk center.
[2023-01-13 14:32] LABS: Appearance,Urine Clear (Clear); Bacteria,Urine Rare /hpf; Bilirubin,Urine Negative (Negative); Blood,Urine Negative (Negative); Color,Urine Yellow; Glucose,Urine (UA) Negative (Negative); Hyaline Casts,Urine 1 /lpf (0-2); Ketones,Urine Negative (Negative); Leukocyte Esterase,Urine Large (Negative); Mucus,Urine Moderate /hpf; Nitrite,Urine Negative (Negative); Protein,Urine Trace (Negative); RBC,Urine <1 /hpf (0-5); Specific Gravity,Urine 1.029 (1.001-1.035); Squamous Epithelial Cell,Urine 6 /hpf (0-4); Urobilinogen,Urine <2.0 mg/dL (<2.0); WBC,Urine 5 /hpf (0-5)
[2023-01-13 15:21] VITALS: BP 110/64; PULSE 72; RESP 18
== END 2023-01-13 15:25 | disposition home or self-care (01) ==
LOC: EC 11:33
DX: O9A.212 Injury, poisoning and certain other consequences of external causes complicating pregnancy, second trimester (principal); S09.90XA Unspecified injury of head, initial encounter; O46.92 Antepartum hemorrhage, unspecified, second trimester; O99.512 Diseases of the respiratory system complicating pregnancy, second trimester; J45.909 Unspecified asthma, uncomplicated; O99.332 Smoking (tobacco) complicating pregnancy, second trimester; F17.290 Nicotine dependence, other tobacco product, uncomplicated; O99.322 Drug use complicating pregnancy, second trimester; F12.90 Cannabis use, unspecified, uncomplicated; Z3A.16 16 weeks gestation of pregnancy; Z86.59 Personal history of other mental and behavioral disorders; Z88.8 Allergy status to other drugs, medicaments and biological substances
CPT/HCPCS: 36415; 76805; 76810; 80053; 81001; 84702; 85025; 85610; 85730; 86900; 86901; 99284

== ENCOUNTER 2023-02-28 21:38 | Outpatient (CLI) | payer OTHER ==
[2023-02-28 22:45] LABS: Appearance,Urine Cloudy (Clear); Bacteria,Urine Rare /hpf; Bilirubin,Urine Negative (Negative); Blood,Urine Negative (Negative); Color,Urine Yellow; Glucose,Urine (UA) Negative (Negative); Ketones,Urine Negative (Negative); Leukocyte Esterase,Urine Small (Negative); Mucus,Urine Few /hpf; Nitrite,Urine Negative (Negative); Protein,Urine Trace (Negative); RBC,Urine 1 /hpf (0-5); Specific Gravity,Urine 1.023 (1.001-1.035); Squamous Epithelial Cell,Urine 11 /hpf (0-4); Urobilinogen,Urine <2.0 mg/dL (<2.0); WBC,Urine 11 /hpf (0-5)
[2023-02-28 22:52] LABS: Amphetamine Screen,Urine Not Detected (NotDetected); Barbiturate Screen,Urine Not Detected (NotDetected); Benzodiazepines Screen,Urine Not Detected (NotDetected); Cocaine Screen,Urine Not Detected (NotDetected); Methadone Screen, Urine Not Detected (NotDetected); Opiate Screen,Urine Not Detected (NotDetected); Oxycodone Screen, Urine Not Detected (NotDetected); Phencyclidine Screen,Urine Not Detected (NotDetected); Tricyclic Antidepressant,Urine Not Detected (NotDetected); Urn Cannabinoid Scrn Not Detected (NotDetected)
[2023-02-28 23:13] VITALS: BP 120/69; PULSE 73; RESP 18; TEMP 97.3
--- NOTE | 2023-03-03 11:06 | P.MSEPDOC ---
Presenting Problems - Arrival Data Date of Arrival on Unit: 02/28/23 Time of Arrival on Unit: 21:38 Mode of Transport: Wheelchair - Complaint OB-Reason for Admission/Chief Complaint: Pain Comment: Pt presents with c/o abdominal pain and burning as well as back pain, rates both 10/10 Medical History - Information : 4 Para: 2 Term: 2 : 0 Abortions: Spontaneous or Elective: 0 Number of Living Children: 2 - Gestational Age Gestational Age by LIS (wks/days): 22 Weeks and 6 Days Review of Systems - Review of Systems Constitutional: No problems Breast: No problems ENT: No problems Cardiovascular: No problems Respiratory: No problems Gastrointestinal: No problems Genitourinary: No problems Musculoskeletal: No problems Neurological: No problems Skin: No problems Vital Signs - Temperature Temperature: 97.3 F Temperature Source: Temporal Artery Scan - Pulse Pulse Oximetery Pulse Rate: 73 Pulse Assessment Method: Pulse Oximetry - Respirations Respiratory Rate: 18 Oxygen Delivery Method: Room Air O2 Sat by Pulse Oximetry: 100 - Blood Pressure Right Arm Blood Pressure: 120/69 Blood Pressure Mean: 86 Blood Pressure Source: Automatic Cuff Physician Notification - Physician Notified Physician Notified Date: 02/28/23 Physician Notified Time: 22:05 Physician: Ky Campbell Order Received: Yes - Notification Comment Comment: pt is DOM, [facility]. 22 weeks and 6 days. with twins, IUFD with twin B at 17 weeks gestation. Pt presents with c/o abdominal pain and burning as well as back pain, rates both 10/10. Started this morning at 0600. Pt states she had a seizure today at 1600, unable to say how long and states she has had them in the past. Pt c/o leaking fluid but states she had episode of incontnence today unrelated to seizure. Order recieved for amnisure and send UA. Discussed results of amnisure and UA. Order to d/c home. Pt to follow up with regular OB tomorrow, may use heat for pain Maternal Triage Index - Maternal Triage Index Presenting for scheduled procedure w/no complaint: No - Stat/Priority 1 Stat Priority 1: No - Urgent/Priority 2 Urgent Priority 2: No - Prompt/Priority 3 Prompt Priority 3: Yes Criteria Met for Priority 3: pt is DOM, [facility]. 22 weeks and 6 days. with twins, IUFD with twin B at 17 weeks gestation. Pt presents with c/o abdominal pain and burning as well as back pain, rates both 10/10. Started this morning at 0600. Pt states she had a s eizure today at 1600, unable to say how long and states she has had them in the past. Pt c/o leaking fluid but states she had episode of incontinence today unrelated to seizure Disposition - Disposition OB Disposition: Triage, Discharge to home Discharge Date: 02/28/23 Discharge Time: 22:55 I agree with the RN Medical Screening Exam: Yes Physician's MSE Comment: I have neither seen nor examined the patient. Case reviewed; plan agreed upon as documented in EMR&OBIX.: Yes Diagnosis: RELATED CONDITIONS, UNSPECIFIED, SECOND TRIMESTER
== END 2023-02-28 22:55 | disposition home or self-care (01) ==
LOC: FBPOP 21:38
PROVIDERS: ATTEND Obstetrics & Gynecology
DX: O99.322 Drug use complicating pregnancy, second trimester (principal); R10.9 Unspecified abdominal pain; M54.50 Low back pain, unspecified; O99.350 Diseases of the nervous system complicating pregnancy, unspecified trimester; G40.909 Epilepsy, unspecified, not intractable, without status epilepticus; O26.892 Other specified pregnancy related conditions, second trimester; F12.90 Cannabis use, unspecified, uncomplicated; Z3A.22 22 weeks gestation of pregnancy; Z91.013 Allergy to seafood; Z88.8 Allergy status to other drugs, medicaments and biological substances
CPT/HCPCS: 84112; 81001; 80306; G0463; 99213

== ENCOUNTER 2023-05-09 19:33 | Outpatient (CLI) | payer OTHER ==
[2023-05-09] MEDS: LACTATED RINGERS 1,000 ML IV ONE (20:51)
[2023-05-09 21:00] LABS: Basophils % (A) 0 %; Eosinophils # (A) 0.7 k/uL (0-0.7); Eosinophils % (A) 7 %; HCT 31.6 % (34.0-46.0); HGB 11.1 gm/dL (11.4-16.0); Lymphocytes # (A) 2.2 k/uL (1.0-4.8); Lymphocytes % (A) 24 %; MCH 32.4 pg (25.0-35.0); MCHC 35.2 g/dL (31.0-37.0); MCV 92.2 fL (80.0-100.0); Mean Platelet Volume 8.6; Monocytes # (A) 0.5 k/uL (0-1.0); Monocytes % (A) 6 %; Neutrophils # (A) 5.5 k/uL (1.3-7.7); Neutrophils % (A) 61 %; Platelet Count 239 k/uL (150-450); RBC 3.43 m/uL (3.80-5.40); RDW 12.8 % (11.5-15.5); WBC 9.1 k/uL (3.8-10.6)
[2023-05-09 21:02] LABS: Appearance,Urine Cloudy (Clear); Bilirubin,Urine Negative (Negative); Blood,Urine Negative (Negative); Color,Urine Yellow; Glucose,Urine (UA) Negative (Negative); Ketones,Urine Negative (Negative); Leukocyte Esterase,Urine Trace (Negative); Mucus,Urine Many /hpf; Nitrite,Urine Negative (Negative); Protein,Urine 1+ (Negative); RBC,Urine 1 /hpf (0-5); Specific Gravity,Urine 1.043 (1.001-1.035); Squamous Epithelial Cell,Urine 6 /hpf (0-4); WBC,Urine 11 /hpf (0-5)
[2023-05-09 21:12] LABS: Amphetamine Screen,Urine Not Detected (NotDetected); Barbiturate Screen,Urine Not Detected (NotDetected); Benzodiazepines Screen,Urine Not Detected (NotDetected); Cocaine Screen,Urine Not Detected (NotDetected); Methadone Screen, Urine Not Detected (NotDetected); Opiate Screen,Urine Not Detected (NotDetected); Oxycodone Screen, Urine Not Detected (NotDetected); Phencyclidine Screen,Urine Not Detected (NotDetected); Tricyclic Antidepressant,Urine Not Detected (NotDetected); Urn Cannabinoid Scrn Not Detected (NotDetected)
[2023-05-09 21:20] LABS: ALT 21 U/L (4-34); AST 23 U/L (14-36); African American GFR (CKD) >90 (>60 ml/min/1.73 sqM); Albumin 3.4 g/dL (3.5-5.0); Alkaline Phosphatase 102 U/L (38-126); Anion Gap 8 mmol/L; Blood Urea Nitrogen 9 mg/dL (7-17); Calcium 8.9 mg/dL (8.4-10.2); Carbon Dioxide 19 mmol/L (22-30); Chloride 107 mmol/L (98-107); Glucose 95 mg/dL (74-99); Non-African American GFR(CKD) >90 (>60 ml/min/1.73 sqM); Potassium 3.5 mmol/L (3.5-5.1); Sodium 134 mmol/L (137-145); Total Bilirubin 0.4 mg/dL (0.2-1.3); Total Protein 6.4 g/dL (6.3-8.2)
[2023-05-10 02:10] VITALS: BP 118/75; PULSE 93; RESP 16; TEMP 97.2
--- NOTE | 2023-05-10 06:55 | P.MSEPDOC ---
Presenting Problems - Arrival Data Date of Arrival on Unit: 05/09/23 Time of Arrival on Unit: 19:33 Mode of Transport: Wheelchair - Complaint OB-Reason for Admission/Chief Complaint: Rule Out SROM Comment: N/V/D Medical History - Information : 4 Para: 2 Term: 2 : 0 Abortions: Spontaneous or Elective: 0 Number of Living Children: 2 - Gestational Age Gestational Age by LIS (wks/days): 33 Weeks and 3 Days - History Complications: Prior , Other Comment: DOM presents with care elswhere but last 2 babies born here. 1 c/s. 1 shoulder Dystocia vag. States is twin preg this time with 1 IUFD around 17 weeks. states leaking fluid from vagina now with vomiting Review of Systems - Review of Systems Constitutional: No problems Breast: No problems ENT: No problems Cardiovascular: No problems Respiratory: No problems Gastrointestinal: Diarrhea Genitourinary: No problems Musculoskeletal: No problems Neurological: No problems Skin: No problems Vital Signs - Temperature Temperature: 97.2 F Temperature Source: Temporal Artery Scan - Pulse Right Pulse Rate: 93 Pulse Assessment Method: Automatic Cuff - Respirations Respiratory Rate: 16 Oxygen Delivery Method: Room Air O2 Sat by Pulse Oximetry: 98 - Blood Pressure Right Arm Blood Pressure: 118/75 Blood Pressure Mean: 89 Blood Pressure Source: Automatic Cuff Medical Screen Scoring - Cervical Exam Dilation (cm): 0 Effacement (%): 0 Membranes: Intact - Uterine Contractions Frequency From (mins): 0 Frequency To (mins): 0 Duration From (seconds): 0 Duration To (seconds): 0 - Assessment - Baby A Baseline FHR: 120 Heart Rate - NICHD Category: Category I (Normal) NST: Reactive Physician Notification - Physician Notified Physician Notified Date: 05/10/23 Physician Notified Time: 21:45 Physician: Pradeep Blank - Notification Comment Comment: labs reviewed. discharge order received for after IV lr empty Maternal Triage Index - Maternal Triage Index Presenting for scheduled procedure w/no complaint: No - Stat/Priority 1 Stat Priority 1: Yes Provider Notified: Pradeep Blank Provider Notified Time: 19:33 Criteria Met for Priority 1: possible SROM 33 week Disposition - Disposition OB Disposition: Discharge to home Discharge Date: 05/09/23 Discharge Time: 22:30 I agree with the RN Medical Screening Exam: Yes Case reviewed; plan agreed upon as documented in EMR&OBIX.: Yes Diagnosis: RELATED CONDITIONS, UNSPECIFIED, THIRD TRIMESTER (This patient is a 22-year-old 4(?) Para 2 female who presents to labor and delivery triage with complaints of difficulty eating and diarrhea for approximately 3 days. Patient also had an episode of emesis and felt that she had leaking vaginally after this. Patient is getting care by [facility] and we do not have these records available. Patient is uncertain as to what her EDC is. She states that her is complicated by a twin gestation with demise that occurred at approximately 17 weeks with one of the twins. I did look at previous ultrasounds that she had here at [facility] and it is evident her EDC is 06/25/2023. This puts her gestational age at 33-2/7 weeks gestation. Evaluation here shows no evidence of labor or rupture of membranes. Her Amniosure is negative and digital exam by myself shows her cervix to be closed and thick. heart tones are reassuring without decelerations and there are no referable contractions. I did do a CBC and urinalysis as well as a metabolic panel. These were unremarkable and there is no evidence of urinary ketones. Patient was given IV hydration and recommended to follow up with her primary slip presser today. I had a long discussion with the patient and her partner and advised them that we do not have any records on them and they have not been provided to us by [facility]. She states that when she called her physician the instructed her to come to [facility] and that [facility] I explained to her that the better option in the absence of an emergency would be to go directly to [facility] in the future. Again the patient understands we have no records provided to us and are unable to get them many times after hours. At this time there is no evidence of maternal or compromise. Patient was discharged home with follow-up with her primary slip presser as soon as possible. )
== END 2023-05-09 22:30 | disposition home or self-care (01) ==
LOC: FBPOP 19:33
PROVIDERS: ATTEND Obstetrics & Gynecology
DX: O47.03 False labor before 37 completed weeks of gestation, third trimester (principal); O99.323 Drug use complicating pregnancy, third trimester; F12.90 Cannabis use, unspecified, uncomplicated; Z3A.33 33 weeks gestation of pregnancy
CPT/HCPCS: 59025; 96360; 84112; 36415; 80053; 85025; 81001; 80306; 87086; G0463; 99213

== ENCOUNTER 2023-05-22 23:23 | Outpatient (CLI) | payer OTHER ==
[2023-05-23 00:53] VITALS: BP 117/63; PULSE 94; RESP 16; TEMP 96.9
--- NOTE | 2023-05-25 11:01 | P.MSEPDOC ---
Presenting Problems - Arrival Data Date of Arrival on Unit: 05/22/23 Time of Arrival on Unit: 23:23 Mode of Transport: Ambulatory - Complaint OB-Reason for Admission/Chief Complaint: Possible Onset of Labor Comment: Patient arrived from home ambulated to our triage with her mother and stated that she is having contractions that started @2150 05/21 patient denies vaginal bleeding or leaking of fluid. Patient is a DOM and sees a Dr. that is [facility] affiliated and has had all care with [facility] Santamaria at 21 weeks gestation. Medical History - Information : 4 Para: 2 Term: 1 : 1 Abortions: Spontaneous or Elective: 0 Number of Living Children: 2 - Gestational Age Gestational Age by LIS (wks/days): 35 Weeks and 2 Days - History Complications: Multiple , Prior Comment: Twin , demise twin B at 17 weeks gestation. Review of Systems - Review of Systems Constitutional: No problems Breast: No problems ENT: No problems Cardiovascular: No problems Respiratory: No problems Gastrointestinal: No problems Genitourinary: No problems Musculoskeletal: No problems Neurological: No problems Skin: No problems Vital Signs - Temperature Temperature: 96.9 F Temperature Source: Temporal Artery Scan - Pulse Pulse Oximetery Pulse Rate: 94 Pulse Assessment Method: Pulse Oximetry - Respirations Respiratory Rate: 16 Oxygen Delivery Method: Room Air O2 Sat by Pulse Oximetry: 98 - Blood Pressure Right Arm Blood Pressure: 117/63 Blood Pressure Mean: 81 Blood Pressure Source: Automatic Cuff Medical Screen Scoring - Cervical Exam Membranes: Intact - Uterine Contractions Resting: Soft to palpation - Assessment - Baby A Baseline FHR: 130 Heart Rate - NICHD Category: Category I (Normal) NST: Reactive Physician Notification - Physician Notified Physician Notified Date: 05/23/23 Physician Notified Time: 00:07 Physician: Ky Campbell Order Received: No - Notification Comment Comment: RN called Dr. Campbell, reported on maternal and status, [facility] Maternal complaint of cx every 2-3 minutes with pain during cx 10/10 starting around 2145 this evening. Reactive NST, cervical exam fingertip/thick/posterior. Reported that TOCO has traced 2 contractions since the start of tracing at 2331, after 2 cervical exams, patient talking on the phone during first contraction and had no verbal response to cx. RN asked if MD wanted to wait the full hour and recheck patient. Instructions given no recheck needed r/t no contractions. Orders to discharge home, keep schedule appointment with [facility], and to instruct patient to go to [facility] for care unless an emergency occurs, all records are there. Maternal Triage Index - Maternal Triage Index Presenting for scheduled procedure w/no complaint: No - Stat/Priority 1 Stat Priority 1: No - Urgent/Priority 2 Urgent Priority 2: No - Prompt/Priority 3 Prompt Priority 3: Yes Criteria Met for Priority 3: Patient arrived from home ambulated to our triage with her mother and stated that she is having contractions that started @2150 05/21 patient denies vaginal bleeding or leaking of fluid. Patient is a DOM and sees a DrFederico that is [facility] affiliated and has had all care with [facility] at 21 weeks gestation. Disposition - Disposition OB Disposition: Discharge to home Discharge Date: 05/23/23 Discharge Time: 00:12 I agree with the RN Medical Screening Exam: Yes Physician's MSE Comment: I have neither seen nor examined the patient. Case reviewed; plan agreed upon as documented in EMR&OBIX.: Yes Diagnosis: RELATED CONDITIONS, UNSPECIFIED, THIRD TRIMESTER
== END 2023-05-23 00:12 | disposition home or self-care (01) ==
LOC: FBPOP 23:23
PROVIDERS: ATTEND Obstetrics & Gynecology
DX: O47.03 False labor before 37 completed weeks of gestation, third trimester (principal); Z3A.35 35 weeks gestation of pregnancy; Z88.8 Allergy status to other drugs, medicaments and biological substances; Z91.013 Allergy to seafood
CPT/HCPCS: 59025; G0463; 99213

== ENCOUNTER 2024-01-10 16:44 | Emergency (ER) | payer OTHER ==
[2024-01-10 16:56] VITALS: RESP 18; TEMP 97.5
--- NOTE | 2024-01-10 17:38 | ED ---
General Adult HPI - General Chief complaint: Headache Stated complaint: Headache Time Seen by Provider: 01/10/24 16:59 Source: patient Mode of arrival: wheelchair Limitations: no limitations - History of Present Illness Initial comments: Patient is a 23-year-old female present to the emergency department with concerns with headache. Patient states headache started around noon and has slowly gradually progressed. Headache is starting to become moderate to severe. Patient has associated photophobia. Patient does have history of headaches similar to this over the past 5 years. Headache is left-sided. No vomiting. No weakness or confusion. Patient was donating blood and systolic blood pressure was 111 and 113. - Related Data Home Medications Medication Instructions Recorded Confirmed Vit No.179/Iron/Folic 1 tab PO BID 03/05/22 05/09/23 [ Tablet] Acetaminophen Tab [Tylenol Tab] 1,000 mg PO Q6H 05/22/23 05/22/23 Allergies Allergy/AdvReac Type Severity Reaction Status Date / Time divalproex sodium Allergy Severe Anaphylaxis Verified 01/10/24 16:52 [From Depakote] shellfish derived [Shellfish] Allergy Severe Anaphylaxis Verified 01/10/24 16:52 Review of Systems ROS Statement: Those systems with pertinent positive or pertinent negative responses have been documented in the HPI. ROS Other: All systems not noted in ROS Statement are negative. Constitutional: Denies: fever Eyes: Denies: eye pain ENT: Denies: ear pain Respiratory: Denies: cough Gastrointestinal: Denies: nausea Neurological: Reports: headache. Denies: weakness, confusion Past Medical History Past Medical History: Asthma, Seizure Disorder Additional Past Medical History / Comment(s): bipolar disorder, ADHD, OCD, asthma, seizures caused by PTSD, last seizure few days ago History of Any Multi-Drug Resistant Organisms: None Reported Past Surgical History: Adenoidectomy, Ear Surgery, Tonsillectomy Past Anesthesia/Blood Transfusion Reactions: No Reported Reaction Past Psychological History: Anxiety, Bipolar, Depression, PTSD Smoking Status: Current every day smoker Past Alcohol Use History: None Reported Past Drug Use History: None Reported - Past Family History Mother Family Medical History: Hypertension, Thyroid Disorder General Exam Limitations: no limitations General appearance: alert, in no apparent distress Head exam: Present: normocephalic Eye exam: Present: normal appearance, PERRL, EOMI Neck exam: Present: other (No discomfort with flexion and extension. Patient has limited rotation to the right and left secondary to discomfort. Minimal tenderness to palpation.) Respiratory exam: Present: normal lung sounds bilaterally Cardiovascular Exam: Present: regular rate, normal rhythm Expanded Peripheral pulses: 2+: Radial (R), Radial (L) GI/Abdominal exam: Present: soft. Absent: tenderness Extremities exam: Present: normal inspection Neurological exam: Present: alert, oriented X3, CN II-XII intact. Absent: motor sensory deficit Expanded Neurological exam: Present: protecting the airway Cranial nerves: EOM's Intact: Normal Sensory exam: Upper Extremity Light Touch: Normal, Lower Extremity Light Touch: Normal Motor strength exam: RUE: 5, LUE: 5, RLE: 5, LLE: 5 Eye Response: (4) open spontaneously Motor Response: (6) obeys commands Verbal Response: (5) oriented Psychiatric exam: Present: normal affect, normal mood Skin exam: Present: normal color Course Vital Signs 01/10/24 16:53 Temperature 97.5 F L Pulse Rate 84 Respiratory 18 Rate Blood Pressure 139/78 O2 Sat by Pulse 94 L Oximetry Medical Decision Making - Medical Decision Making Was pt. sent in by a medical professional or institution (, PA, HIGH SCHOOL ASSISTANT FOOTBALL COACH, urgent care, hospital, or penitentiary...) When possible be specific @ -No Did you speak to anyone other than the patient for history (EMS, parent, family, police, friend...)? What history was obtained from this source @ -No Did you review nursing and triage notes (agree or disagree)? Why? @ -I reviewed and agree with nursing and triage notes Were old charts reviewed (outside hosp., previous admission, EMS record, old EKG, old radiological studies, urgent care reports/EKG's, penitentiary records)? Report findings @ -No old charts were reviewed Differential Diagnosis (chest pain, altered mental status, abdominal pain women, abdominal pain men, vaginal bleeding, weakness, fever, dyspnea, syncope, headache, dizziness, GI bleed, back pain, seizure, CVA, palpatations, mental health, musculoskeletal)? @ -Differential Headache: Migraine, tension, cluster, carbon monoxide, central venous thrombosis, pension karma temporal arteritis, acute closure glaucoma, intercranial hemorrhage, mastoiditis, sinusitis, head injury, this is not meant to be an all-inclusive list. EKG interpreted by me (3pts min.). @ -As above X-rays interpreted by me (1pt min.). @ -None done CT interpreted by me (1pt min.). @ -None done U/S interpreted by me (1pt. min.). @ -None done What testing was considered but not performed or refused? (CT, X-rays, U/S, labs)? Why? @ -Considered imaging however headache was gradual onset and patient has history of chronic similar headaches for the past 5 years What meds were considered but not given or refused? Why? @ -None Did you discuss the management of the patient with other professionals (professionals i.e. DrFederico, PA, HIGH SCHOOL ASSISTANT FOOTBALL COACH, lab, RT, psych nurse, social work supervisor, trimming cutter, teacher, global chief experience officer, nurse case manager)? Give summary @ -No Was smoking cessation discussed for >3mins.? @ -No Was critical care preformed (if so, how long)? @ -No Were there social determinants of health that impacted care today? How? (Homelessness, low income, unemployed, alcoholism, drug addiction, transportation, low edu. Level, literacy, decrease access to med. care, long-term, rehab)? @ -No Was there de-escalation of care discussed even if they declined (Discuss DNR or withdrawal of care, Hospice)? DNR status @ -No What co-morbidities impacted this encounter? (DM, HTN, Smoking, COPD, CAD, Cancer, CVA, ARF, Chemo, Hep., AIDS, mental health diagnosis, sleep apnea, morbid obesity)? @ -None Was patient admitted / discharged? Hospital course, mention meds given and route, prescriptions, significant lab abnormalities, going to OR and other pertinent info. @ -Patient presents with gradual onset headache, similar to previous. Neurological exam unremarkable. Patient will be provided medication and discharged for follow-up Undiagnosed new problem with uncertain prognosis? @ -No Drug Therapy requiring intensive monitoring for toxicity (Heparin, Nitro, Insulin, Cardizem)? @ -No Were any procedures done? @ -No Diagnosis/symptom? @ -Headache Acute, or Chronic, or Acute on Chronic? @ -Acute Uncomplicated (without systemic symptoms) or Complicated (systemic symptoms)? @ -Default Side effects of treatment? @ -No Exacerbation, Progression, or Severe Exacerbation? @ -No Poses a threat to life or bodily function? How? (Chest pain, [place], [place], pneumonia, PE, COPD, DKA, ARF, appy, cholecystitis, CVA, Diverticulitis, Homicidal, Suicidal, threat to staff... and all critical care pts) @ -No Disposition Clinical Impression: Headache Disposition: HOME SELF-CARE Condition: Stable Instructions (If sedation given, give patient instructions): Acute Headache (ED) Additional Instructions: Please do follow-up with primary care physician in the next couple of days for recheck, numbers provided. Return for fever, weakness, increased pain, worsening or changing symptoms or any other concerns. Is patient prescribed a controlled substance at d/c from ED?: No Referrals: Demetrius Martinez MD [STAFF PHYSICIAN] - 1-2 days Forms: Area PCPs Time of Disposition: 17:37
[2024-01-10] MEDS: METOCLOPRAMIDE 5 MG/ML 2 ML VIAL IM STA (17:47)
[2024-01-10] MEDS: KETOROLAC 15 MG/ML 1 ML VIAL IM STA (17:47)
[2024-01-10 18:38] VITALS: BP 131/83; PULSE 89
== END 2024-01-10 18:35 | disposition home or self-care (01) ==
LOC: EC 16:44
DX: R51.9 Headache, unspecified (principal); F17.200 Nicotine dependence, unspecified, uncomplicated; Z88.8 Allergy status to other drugs, medicaments and biological substances; Z91.013 Allergy to seafood
CPT/HCPCS: 99284; 96372 ×2; J2765; J1885

== ENCOUNTER 2024-04-18 16:02 | Emergency (ER) | payer OTHER ==
[2024-04-18 16:25] VITALS: RESP 16
[2024-04-18] MEDS: ACETAMINOPHEN TAB 325 MG TAB PO STA (16:54)
[2024-04-18 17:54] LABS: Influenza A Not Detected (Not Detectd); Influenza B Not Detected (Not Detectd); RSV Not Detected (Not Detectd)
--- NOTE | 2024-04-18 18:14 | XR ---
EXAMINATION TYPE: XR chest 2V DATE OF EXAM: 04/18/2024 6:10 PM COMPARISON: None. CLINICAL INDICATION: Female, 23 years old with history of cough, TECHNIQUE: XR chest 2V view(s) obtained. FINDINGS: The heart size is normal. The pulmonary vasculature is normal. The lungs are clear. IMPRESSION: 1. No acute pulmonary process. [facility], , 04/18/2024 6:11 PM
[2024-04-18 18:15] VITALS: TEMP 98.2
--- NOTE | 2024-04-18 18:30 | ED ---
General Adult HPI - General Chief complaint: Upper Respiratory Infection Stated complaint: Headache,Nausea Time Seen by Provider: 04/18/24 16:29 Source: patient Mode of arrival: ambulatory Limitations: no limitations - History of Present Illness Initial comments: 23-year-old female presenting with chief complaint of URI-like symptoms. Patient states that she has had cough congestion and sore throat ongoing for about a week now. She also admits to fatigue and bodyaches. She admits to nausea and decreased appetite as well. No localized abdominal pain. No diarrhea. No chest pain or difficulty breathing. Admits to fever. Admits to headache - Related Data Home Medications Medication Instructions Recorded Confirmed Vit No.179/Iron/Folic 1 tab PO BID 03/05/22 05/09/23 [ Tablet] Acetaminophen Tab [Tylenol Tab] 1,000 mg PO Q6H 05/22/23 05/22/23 Previous Rx's Medication Instructions Recorded Ondansetron Odt [Zofran Odt] 4 mg PO Q8HR PRN #20 tab 04/18/24 Allergies Allergy/AdvReac Type Severity Reaction Status Date / Time divalproex sodium Allergy Severe Anaphylaxis Verified 04/18/24 16:25 [From Depakote] shellfish derived [Shellfish] Allergy Severe Anaphylaxis Verified 04/18/24 16:25 Review of Systems ROS Statement: Those systems with pertinent positive or pertinent negative responses have been documented in the HPI. ROS Other: All systems not noted in ROS Statement are negative. Past Medical History Past Medical History: Asthma, Seizure Disorder Additional Past Medical History / Comment(s): bipolar disorder, ADHD, OCD, asthma, seizures caused by PTSD, last seizure few days ago History of Any Multi-Drug Resistant Organisms: None Reported Past Surgical History: Adenoidectomy, Ear Surgery, Tonsillectomy Past Anesthesia/Blood Transfusion Reactions: No Reported Reaction Past Psychological History: Anxiety, Bipolar, Depression, PTSD Smoking Status: Never smoker Past Alcohol Use History: None Reported Past Drug Use History: None Reported - Past Family History Mother Family Medical History: Hypertension, Thyroid Disorder General Exam Limitations: no limitations General appearance: alert, in no apparent distress Head exam: Present: atraumatic, normocephalic, normal inspection Eye exam: Present: normal appearance, EOMI ENT exam: Present: normal exam, normal oropharynx, mucous membranes moist, TM's normal bilaterally Neck exam: Present: normal inspection. Absent: meningismus Respiratory exam: Present: normal lung sounds bilaterally. Absent: respiratory distress, wheezes, rales, rhonchi, stridor Cardiovascular Exam: Present: regular rate, normal rhythm, normal heart sounds. Absent: systolic murmur, diastolic murmur, rubs, gallop, clicks Neurological exam: Present: alert, oriented X3 Psychiatric exam: Present: normal affect, normal mood Skin exam: Present: warm, dry Course Vital Signs 04/18/24 04/18/24 04/18/24 16:22 18:14 18:39 Temperature 98.0 F 98.2 F Pulse Rate 98 94 Respiratory 16 16 Rate Blood Pressure 106/68 110/76 O2 Sat by Pulse 98 99 Oximetry Medical Decision Making - Medical Decision Making Was pt. sent in by a medical professional or institution (, PA, REHABILITATION SERVICES DIRECTOR, urgent care, hospital, or assisted...) When possible be specific @ -No Did you speak to anyone other than the patient for history (EMS, parent, family, police, friend...)? What history was obtained from this source @ -No Did you review nursing and triage notes (agree or disagree)? Why? @ -I reviewed and agree with nursing and triage notes Were old charts reviewed (outside hosp., previous admission, EMS record, old EKG, old radiological studies, urgent care reports/EKG's, assisted records)? Report findings @ -No old charts were reviewed Differential Diagnosis (chest pain, altered mental status, abdominal pain women, abdominal pain men, vaginal bleeding, weakness, fever, dyspnea, syncope, headache, dizziness, GI bleed, back pain, seizure, CVA, palpatations, mental health, musculoskeletal)? @ -Differential includes influenza, RSV, COVID, group A strep, pneumonia, bronchitis, asthma, not an all-inclusive list EKG interpreted by me (3pts min.). @ -As above X-rays interpreted by me (1pt min.). @ -Chest x-ray shows no acute process CT interpreted by me (1pt min.). @ -None done U/S interpreted by me (1pt. min.). @ -None done What testing was considered but not performed or refused? (CT, X-rays, U/S, labs)? Why? @ -None What meds were considered but not given or refused? Why? @ -None Did you discuss the management of the patient with other professionals (professionals i.e. , PA, REHABILITATION SERVICES DIRECTOR, lab, RT, psych nurse, director social welfare, paper bag making machinist, teacher, affirmative action officer, case manager specialist)? Give summary @ -No Was smoking cessation discussed for >3mins.? @ -No Was critical care preformed (if so, how long)? @ -No Were there social determinants of health that impacted care today? How? (Homelessness, low income, unemployed, alcoholism, drug addiction, transportation, low edu. Level, literacy, decrease access to med. care, usp, rehab)? @ -No Was there de-escalation of care discussed even if they declined (Discuss DNR or withdrawal of care, Hospice)? DNR status @ -No What co-morbidities impacted this encounter? (DM, HTN, Smoking, COPD, CAD, Cancer, CVA, ARF, Chemo, Hep., AIDS, mental health diagnosis, sleep apnea, morbid obesity)? @ -None Was patient admitted / discharged? Hospital course, mention meds given and route, prescriptions, significant lab abnormalities, going to OR and other pertinent info. @ -23-year-old female presenting with chief complaint of URI-like symptoms. She also admits to nausea headache and bodyaches. History and physical examination are conducted. She is negative for influenza, RSV, COVID, group A strep. Chest x-ray shows no acute process. On reassessment she is resting comfortably showing no acute signs of distress. Given the description of her symptoms and is likely this is due to some kind of viral infection. She is educated on today's findings and supportive management. Follow-up with PCP. Report back to ER with any new or worsening symptoms. Discussed return parameters and answered all questions. Patient conveyed verbal understanding and agreed to the plan. I discussed this case in detail with my attending Dr. Haque Undiagnosed new problem with uncertain prognosis? @ -No Drug Therapy requiring intensive monitoring for toxicity (Heparin, Nitro, Insulin, Cardizem)? @ -No Were any procedures done? @ -No Diagnosis/symptom? @ -Viral syndrome Acute, or Chronic, or Acute on Chronic? @ -Acute Uncomplicated (without systemic symptoms) or Complicated (systemic symptoms)? @ -uncomplicated Side effects of treatment? @ -No Exacerbation, Progression, or Severe Exacerbation? @ -No Poses a threat to life or bodily function? How? (Chest pain, [place], [place], pneumonia, PE, COPD, DKA, ARF, appy, cholecystitis, CVA, Diverticulitis, Homicidal, Suicidal, threat to staff... and all critical care pts) @ -Low likelihood - Lab Data Lab Results 04/18/24 04/18/24 Range/Units 17:02 17:02 Influenza Type A (PCR) Not Detected (Not Detectd) Influenza Type B (PCR) Not Detected (Not Detectd) RSV (PCR) Not Detected (Not Detectd) SARS-CoV-2 (PCR) Not Detected (Not Detectd) Group A Strep (PCR) NOT DETECTED (Not Detectd) Disposition Clinical Impression: Viral infection Disposition: HOME SELF-CARE Condition: Good Instructions (If sedation given, give patient instructions): Viral Syndrome (ED) Additional Instructions: Follow-up with PCP. Report back to ER with any new or worsening symptoms. Take Motrin Tylenol as needed for fever and pain control. Take medication as prescribed. Prescriptions: Ondansetron Odt [Zofran Odt] 4 mg PO Q8HR PRN #20 tab PRN Reason: Nausea Is patient prescribed a controlled substance at d/c from ED?: No Referrals: None,Stated [Primary Care Provider] - 1-2 days Forms: Area PCPs Time of Disposition: 18:30
[2024-04-18] MEDS: ONDANSETRON ODT 4 MG TAB PO STA (18:36)
[2024-04-18] MEDS: ONDANSETRON 4 MG ODT STARTER PACK 2 TAB BTL PO STA (18:37)
[2024-04-18] MEDS: IBUPROFEN 600 MG STARTER PACK 4 TAB BTL PO STA (18:37)
[2024-04-18 18:42] VITALS: BP 110/76; PULSE 94
== END 2024-04-18 18:42 | disposition home or self-care (01) ==
LOC: EC 16:02
DX: R51.9 Headache, unspecified (principal); B34.9 Viral infection, unspecified; Z91.013 Allergy to seafood; Z88.8 Allergy status to other drugs, medicaments and biological substances
CPT/HCPCS: 87651; 87636; 71046; 99284; S0119

== ENCOUNTER 2024-08-22 18:08 | Emergency (ER) | payer OTHER ==
--- NOTE | 2024-08-22 19:40 | ED ---
General Adult HPI - General Chief complaint: GI Bleed Stated complaint: Vaginal bleeding Time Seen by Provider: 08/22/24 19:40 Source: patient Mode of arrival: ambulatory Limitations: no limitations - History of Present Illness Initial comments: 23-year-old female presenting with chief complaint of vaginal bleeding. Patient states the vaginal bleeding has been ongoing for 1 week. She is having dark red blood with clots. She also admits to pelvic cramping. Patient denies stating that she is on control. Patient is also under the impression that this started after she donated plasma, she states "when they put the blood back inside me it came out of my uterus". No fever or chills. No urinary symptoms. No nausea or vomiting. - Related Data Home Medications Medication Instructions Recorded Confirmed Vit No.179/Iron/Folic 1 tab PO BID 03/05/22 05/09/23 [ Tablet] Acetaminophen Tab [Tylenol Tab] 1,000 mg PO Q6H 05/22/23 05/22/23 Previous Rx's Medication Instructions Recorded Ondansetron Odt [Zofran Odt] 4 mg PO Q8HR PRN #20 tab 04/18/24 Allergies Allergy/AdvReac Type Severity Reaction Status Date / Time divalproex sodium Allergy Severe Anaphylaxis Verified 08/22/24 18:47 [From Depakote] shellfish derived [Shellfish] Allergy Severe Anaphylaxis Verified 08/22/24 18:47 Review of Systems ROS Statement: Those systems with pertinent positive or pertinent negative responses have been documented in the HPI. ROS Other: All systems not noted in ROS Statement are negative. Past Medical History Past Medical History: Asthma, Seizure Disorder Additional Past Medical History / Comment(s): bipolar disorder, ADHD, OCD, asthma, seizures caused by PTSD, last seizure few days ago History of Any Multi-Drug Resistant Organisms: None Reported Past Surgical History: Adenoidectomy, Ear Surgery, Tonsillectomy Past Anesthesia/Blood Transfusion Reactions: No Reported Reaction Past Psychological History: Anxiety, Bipolar, Depression, PTSD Smoking Status: Never smoker Past Alcohol Use History: None Reported Past Drug Use History: None Reported - Past Family History Mother Family Medical History: Hypertension, Thyroid Disorder General Exam - General Exam Comments Initial Comments: Visual Physical Exam Vital signs reviewed General: Well-appearing, nontoxic, no acute distress. Head: Normocephalic, atraumatic Eyes: PERRLA, EOMI ENT: Airway patent Chest: Nonlabored breathing Skin: No visual rash, normal skin tone Neuro: Alert and oriented 3 Musculoskeletal: No gross abnormalities Limitations: no limitations General appearance: alert, in no apparent distress Head exam: Present: atraumatic, normocephalic, normal inspection Eye exam: Present: normal appearance, EOMI Neck exam: Present: normal inspection. Absent: meningismus Respiratory exam: Present: normal lung sounds bilaterally. Absent: respiratory distress, wheezes, rales, rhonchi, stridor Cardiovascular Exam: Present: regular rate, normal rhythm, normal heart sounds. Absent: systolic murmur, diastolic murmur, rubs, gallop, clicks GI/Abdominal exam: Present: soft. Absent: distended, tenderness, guarding, rebound, rigid External exam: Present: normal external exam Speculum exam: Present: vaginal bleeding (very mild) By manual exam: Present: normal by manual exam Neurological exam: Present: alert, oriented X3 Psychiatric exam: Present: normal affect, normal mood Skin exam: Present: warm, dry, normal color Course Vital Signs 08/22/24 08/22/24 18:44 21:58 Temperature 98 F 98.2 F Pulse Rate 88 86 Respiratory 20 16 Rate Blood Pressure 103/74 110/78 O2 Sat by Pulse 98 98 Oximetry Medical Decision Making - Medical Decision Making I performed the quick note portion of this visit, electronically signed Delfina Weathers PA-C Was pt. sent in by a medical professional or institution (YVONNE James, [employer], urgent care, hospital, or correction...) When possible be specific @ -No Did you speak to anyone other than the patient for history (EMS, parent, family, police, friend...)? What history was obtained from this source @ -No Did you review nursing and triage notes (agree or disagree)? Why? @ -I reviewed and agree with nursing and triage notes Were old charts reviewed (outside hosp., previous admission, EMS record, old EKG, old radiological studies, urgent care reports/EKG's, correction records)? Report findings @ -No old charts were reviewed Differential Diagnosis (chest pain, altered mental status, abdominal pain women, abdominal pain men, vaginal bleeding, weakness, fever, dyspnea, syncope, headache, dizziness, GI bleed, back pain, seizure, CVA, palpatations, mental health, musculoskeletal)? @ -MDM Differential Vaginal Bleeding: Spontaneous , threatened , molar , ectopic , bloody show, incompetent cervix, abruptioplacenta, placenta previa, uterine rupture, dysfunctional uterine bleeding, hemorrhage, uterine fibroids. ... This is not meant to be an all-inclusive list EKG interpreted by me (3pts min.). @ -As above X-rays interpreted by me (1pt min.). @ -None done CT interpreted by me (1pt min.). @ -None done U/S interpreted by me (1pt. min.). @ -None done What testing was considered but not performed or refused? (CT, X-rays, U/S, labs)? Why? @ -None What meds were considered but not given or refused? Why? @ -None Did you discuss the management of the patient with other professionals (professionals i.e. , PA, [employer], lab, RT, psych nurse, social work lecturer, job foreman, teacher, security officer supervisor, caser)? Give summary @ -No Was smoking cessation discussed for >3mins.? @ -No Was critical care preformed (if so, how long)? @ -No Were there social determinants of health that impacted care today? How? (Homelessness, low income, unemployed, alcoholism, drug addiction, transportation, low edu. Level, literacy, decrease access to med. care, nursing home, rehab)? @ -No Was there de-escalation of care discussed even if they declined (Discuss DNR or withdrawal of care, Hospice)? DNR status @ -No What co-morbidities impacted this encounter? (DM, HTN, Smoking, COPD, CAD, Cancer, CVA, ARF, Chemo, Hep., AIDS, mental health diagnosis, sleep apnea, morbid obesity)? @ -None Was patient admitted / discharged? Hospital course, mention meds given and route, prescriptions, significant lab abnormalities, going to OR and other pertinent info. @ -23-year-old female presenting chief complaint of vaginal bleeding for the l ast week. History and physical examination are conducted. Mild bleeding on pelvic exam, otherwise unremarkable. Vital signs are stable. Hemoglobin is stable at 14.6. Negative hCG. Urine shows no convincing evidence for infection. Patient has no concern for STIs as she is monogamous. Patient is educated on today's findings. Follow-up with PCP. Report back to ER with any new or worsening symptoms. Discussed return parameters and answered all questions. Patient conveyed verbal understanding and agreed to the plan. I discussed this case in detail with my attending Dr. Gonzales Undiagnosed new problem with uncertain prognosis? @ -No Drug Therapy requiring intensive monitoring for toxicity (Heparin, Nitro, Insulin, Cardizem)? @ -No Were any procedures done? @ -No Diagnosis/symptom? @ -Vaginal bleeding Acute, or Chronic, or Acute on Chronic? @ -Acute Uncomplicated (without systemic symptoms) or Complicated (systemic symptoms)? @ -Uncomplicated Side effects of treatment? @ -No Exacerbation, Progression, or Severe Exacerbation? @ -No Poses a threat to life or bodily function? How? (Chest pain, [place], [place], pneumonia, PE, COPD, DKA, ARF, appy, cholecystitis, CVA, Diverticulitis, Homicidal, Suicidal, threat to staff... and all critical care pts) @ -Unlikely - Lab Data Result diagrams: 08/22/24 20:06 08/22/24 20:06 Lab Results 08/22/24 08/22/24 08/22/24 Range/Units 19:49 19:49 20:06 WBC 10.41 H (4.50-10.00) 10*3/uL RBC 4.95 (4.10-5.20) 10*6/uL Hgb 14.6 (12.0-15.0) g/dL Hct 41.7 (37.2-46.3) % MCV 84.2 (80.0-97.0) fL MCH 29.5 (27.0-32.0) pg MCHC 35.0 (32.0-37.0) g/dL Plt Count 315 (140-440) 10*3/uL MPV 10.7 (9.5-12.2) fL Immature Gran % (Auto) 0.1 % Neutrophils % 42.4 % Lymphocytes % 37.0 % Monocytes % 8.5 % Eosinophils % 10.9 % Basophils % 1.1 % Immature Gran # 0.01 (0.00-0.04) 10*3/uL Neutrophils # 4.42 (1.80-7.70) 10*3/uL Lymphocytes # 3.85 (0.90-5.00) 10*3/uL Monocytes # 0.89 (0.20-1.00) 10*3/uL Eosinophils # 1.13 H (0.04-0.35) 10*3/uL Basophils # 0.11 H (0.00-0.10) 10*3/uL PT (10.0-12.5) sec INR (<1.2) APTT (22.0-30.0) sec Sodium (137-145) mmol/L Potassium (3.5-5.1) mmol/L Chloride (98-107) mmol/L Carbon Dioxide (22-30) mmol/L Anion Gap mmol/L BUN (7-17) mg/dL Creatinine (0.52-1.04) mg/dL Est GFR (CKD-EPI)AfAm (>60 ml/min/1.73 sqM) Est GFR (CKD-EPI)NonAf (>60 ml/min/1.73 sqM) Glucose (74-99) mg/dL Calcium (8.4-10.2) mg/dL Total Bilirubin (0.2-1.3) mg/dL AST (14-36) U/L ALT (4-34) U/L Alkaline Phosphatase (38-126) U/L Total Protein (6.3-8.2) g/dL Albumin (3.5-5.0) g/dL Urine Color Yellow Urine Appearance Cloudy H (Clear) Urine pH 5.5 (5.0-8.0) Ur Specific [place] 1.036 H (1.001-1.035) Urine Protein Trace H (Negative) Urine Glucose (UA) Negative (Negative) Urine Ketones Negative (Negative) Urine Blood Large H (Negative) Urine Nitrite Negative (Negative) Urine Bilirubin Negative (Negative) Urine Urobilinogen <2.0 (<2.0) mg/dL Ur Leukocyte Esterase Trace H (Negative) Urine RBC 2 (0-5) /hpf Urine WBC 7 H (0-5) /hpf Ur Squamous Epith Cells 4 (0-4) /hpf Urine Bacteria Rare H (None) /hpf Urine Mucus Many H (None) /hpf Urine HCG, Qual Not Detected (Not Detectd) 08/22/24 08/22/24 Range/Units 20:06 20:06 WBC (4.50-10.00) 10*3/uL RBC (4.10-5.20) 10*6/uL Hgb (12.0-15.0) g/dL Hct (37.2-46.3) % MCV (80.0-97.0) fL MCH (27.0-32.0) pg MCHC (32.0-37.0) g/dL Plt Count (140-440) 10*3/uL MPV (9.5-12.2) fL Immature Gran % (Auto) % Neutrophils % % Lymphocytes % % Monocytes % % Eosinophils % % Basophils % % Immature Gran # (0.00-0.04) 10*3/uL Neutrophils # (1.80-7.70) 10*3/uL Lymphocytes # (0.90-5.00) 10*3/uL Monocytes # (0.20-1.00) 10*3/uL Eosinophils # (0.04-0.35) 10*3/uL Basophils # (0.00-0.10) 10*3/uL PT 11.6 (10.0-12.5) sec INR 1.1 (<1.2) APTT 22.5 (22.0-30.0) sec Sodium 137 (137-145) mmol/L Potassium 3.8 (3.5-5.1) mmol/L Chloride 106 (98-107) mmol/L Carbon Dioxide 21 L (22-30) mmol/L Anion Gap 10 mmol/L BUN 15 (7-17) mg/dL Creatinine 0.86 (0.52-1.04) mg/dL Est GFR (CKD-EPI)AfAm >90 (>60 ml/min/1.73 sqM) Est GFR (CKD-EPI)NonAf >90 (>60 ml/min/1.73 sqM) Glucose 95 (74-99) mg/dL Calcium 9.1 (8.4-10.2) mg/dL Total Bilirubin 0.5 (0.2-1.3) mg/dL AST 25 (14-36) U/L ALT 18 (4-34) U/L Alkaline Phosphatase 59 (38-126) U/L Total Protein 6.0 L (6.3-8.2) g/dL Albumin 3.8 (3.5-5.0) g/dL Urine Color Urine Appearance (Clear) Urine pH (5.0-8.0) Ur Specific [place] (1.001-1.035) Urine Protein (Negative) Urine Glucose (UA) (Negative) Urine Ketones (Negative) Urine Blood (Negative) Urine Nitrite (Negative) Urine Bilirubin (Negative) Urine Urobilinogen (<2.0) mg/dL Ur Leukocyte Esterase (Negative) Urine RBC (0-5) /hpf Urine WBC (0-5) /hpf Ur Squamous Epith Cells (0-4) /hpf Urine Bacteria (None) /hpf Urine Mucus (None) /hpf Urine HCG, Qual (Not Detectd) Disposition Clinical Impression: Dysfunctional uterine bleeding Disposition: HOME SELF-CARE Condition: Good Instructions (If sedation given, give patient instructions): Abnormal (Dysfun ctional) Uterine Bleeding (ED) Additional Instructions: Follow-up with [employer]. Report back to ER with any new or worsening symptoms. Is patient prescribed a controlled substance at d/c from ED?: No Referrals: Karlie French FNPBC [REFERRING] - 1-2 days (Contact a primary care office to become established with a provider. ) None,Stated [Primary Care Provider] - 1-2 days Yoselin Prescott DO [Doctor of Osteopathic Medicine] - 1-2 days Forms: PH Area PCPs Time of Disposition: 21:35
[2024-08-22 20:15] LABS: Basophils # (A) 0.11 10*3/uL (0.00-0.10); Basophils % (A) 1.1 %; Eosinophils # (A) 1.13 10*3/uL (0.04-0.35); Eosinophils % (A) 10.9 %; HCT 41.7 % (37.2-46.3); HGB 14.6 g/dL (12.0-15.0); Lymphocytes # (A) 3.85 10*3/uL (0.90-5.00); MCH 29.5 pg (27.0-32.0); MCV 84.2 fL (80.0-97.0); Mean Platelet Volume 10.7 fL (9.5-12.2); Monocytes # (A) 0.89 10*3/uL (0.20-1.00); Monocytes % (A) 8.5 %; Neutrophils # (A) 4.42 10*3/uL (1.80-7.70); Neutrophils % (A) 42.4 %; Platelet Count 315 10*3/uL (140-440); RBC 4.95 10*6/uL (4.10-5.20); RDW 13.7 % (11.5-14.5); WBC 10.41 10*3/uL (4.50-10.00)
[2024-08-22 20:31] LABS: INR 1.1 (<1.2); Partial Thromboplastin Time 22.5 sec (22.0-30.0); Prothrombin Time 11.6 sec (10.0-12.5)
[2024-08-22 20:43] LABS: Appearance,Urine Cloudy (Clear); Bacteria,Urine Rare /hpf; Bilirubin,Urine Negative (Negative); Blood,Urine Large (Negative); Color,Urine Yellow; Glucose,Urine (UA) Negative (Negative); Ketones,Urine Negative (Negative); Leukocyte Esterase,Urine Trace (Negative); Mucus,Urine Many /hpf; Nitrite,Urine Negative (Negative); PH, Urine 5.5 (5.0-8.0); Protein,Urine Trace (Negative); RBC,Urine 2 /hpf (0-5); Specific Gravity,Urine 1.036 (1.001-1.035); Squamous Epithelial Cell,Urine 4 /hpf (0-4); Urobilinogen,Urine <2.0 mg/dL (<2.0); WBC,Urine 7 /hpf (0-5)
[2024-08-22 20:52] LABS: ALT 18 U/L (4-34); AST 25 U/L (14-36); African American GFR (CKD) >90 (>60 ml/min/1.73 sqM); Albumin 3.8 g/dL (3.5-5.0); Alkaline Phosphatase 59 U/L (38-126); Anion Gap 10 mmol/L; Blood Urea Nitrogen 15 mg/dL (7-17); Calcium 9.1 mg/dL (8.4-10.2); Carbon Dioxide 21 mmol/L (22-30); Chloride 106 mmol/L (98-107); Glucose 95 mg/dL (74-99); Non-African American GFR(CKD) >90 (>60 ml/min/1.73 sqM); Potassium 3.8 mmol/L (3.5-5.1); Sodium 137 mmol/L (137-145); Total Bilirubin 0.5 mg/dL (0.2-1.3)
[2024-08-22 21:59] VITALS: BP 110/78; PULSE 86; RESP 16; TEMP 98.2
== END 2024-08-22 21:58 | disposition home or self-care (01) ==
LOC: EC 18:08
DX: N93.8 Other specified abnormal uterine and vaginal bleeding (principal); Z91.013 Allergy to seafood; Z88.8 Allergy status to other drugs, medicaments and biological substances
CPT/HCPCS: 36415; 80053; 81001; 81025; 85025; 85610; 85730; 87070; 99284

== ENCOUNTER 2024-09-25 07:54 | Emergency (ER) | payer OTHER ==
[2024-09-25 07:58] VITALS: RESP 18; TEMP 97.8
--- NOTE | 2024-09-25 08:00 | ED ---
General Adult HPI - General Chief complaint: ENT Stated complaint: Ear pain/congestion Time Seen by Provider: 09/25/24 07:59 Source: patient, RN notes reviewed Mode of arrival: ambulatory Limitations: no limitations - History of Present Illness Initial comments: This is a 23-year-old female with a history of recurrent ear infections presenting to the emergency department complaints of right ear pain that started yesterday, dry cough over the past 3 days, sore throat and nasal congestion. She states that her right ear feels full and she is having difficulty hearing out of it. She denies drainage from the ear. She denies body aches, chest pain or difficulty in breathing. - Related Data Home Medications Medication Instructions Recorded Confirmed Vit No.179/Iron/Folic 1 tab PO BID 03/05/22 05/09/23 [ Tablet] Acetaminophen Tab [Tylenol Tab] 1,000 mg PO Q6H 05/22/23 05/22/23 Previous Rx's Medication Instructions Recorded Ondansetron Odt [Zofran Odt] 4 mg PO Q8HR PRN #20 tab 04/18/24 Amoxicillin 875 mg PO Q12HR #20 tablet 09/25/24 Allergies Allergy/AdvReac Type Severity Reaction Status Date / Time divalproex sodium Allergy Severe Anaphylaxis Verified 09/25/24 07:58 [From Depakote] shellfish derived [Shellfish] Allergy Severe Anaphylaxis Verified 09/25/24 07:58 Review of Systems ROS Statement: Those systems with pertinent positive or pertinent negative responses have been documented in the HPI. ROS Other: All systems not noted in ROS Statement are negative. Past Medical History Past Medical History: Asthma, Seizure Disorder Additional Past Medical History / Comment(s): bipolar disorder, ADHD, OCD, asthma, seizures caused by PTSD, last seizure few days ago History of Any Multi-Drug Resistant Organisms: None Reported Past Surgical History: Adenoidectomy, Ear Surgery, Tonsillectomy Past Anesthesia/Blood Transfusion Reactions: No Reported Reaction Past Psychological History: Anxiety, Bipolar, Depression, PTSD Smoking Status: Current every day smoker Past Alcohol Use History: None Reported Past Drug Use History: Marijuana - Past Family History Mother Family Medical History: Hypertension, Thyroid Disorder General Exam Limitations: no limitations Expanded TM/Canal exam: Erythema: Right TM, Bulging: Right TM Throat exam: other (posterior oropharynx erythema, no tonsillomeagly or erythema) Neck exam: Present: normal inspection. Absent: tenderness, meningismus, lymphadenopathy Respiratory exam: Present: normal lung sounds bilaterally. Absent: respiratory distress, wheezes, rales, rhonchi, stridor Cardiovascular Exam: Present: regular rate, normal rhythm, normal heart sounds. Absent: systolic murmur, diastolic murmur, rubs, gallop, clicks GI/Abdominal exam: Present: soft, normal bowel sounds. Absent: distended, tenderness, guarding, rebound, rigid Extremities exam: Present: normal inspection, full ROM, normal capillary refill. Absent: tenderness, pedal edema, joint swelling, calf tenderness Course Vital Signs 09/25/24 07:55 Temperature 97.8 F Pulse Rate 75 Respiratory 18 Rate Blood Pressure 113/75 O2 Sat by Pulse 98 Oximetry Medical Decision Making - Medical Decision Making Was pt. sent in by a medical professional or institution (, PA, COMMUNICATIONS PROFESSOR, urgent care, hospital, or skilled nursing...) When possible be specific @ -No Did you speak to anyone other than the patient for history (EMS, parent, family, police, friend...)? What history was obtained from this source @ -No Did you review nursing and triage notes (agree or disagree)? Why? @ -I reviewed and agree with nursing and triage notes Were old charts reviewed (outside hosp., previous admission, EMS record, old EKG, old radiological studies, urgent care reports/EKG's, skilled nursing records)? Report findings @ -No old charts were reviewed Differential Diagnosis (chest pain, altered mental status, abdominal pain women, abdominal pain men, vaginal bleeding, weakness, fever, dyspnea, syncope, headache, dizziness, GI bleed, back pain, seizure, CVA, palpatations, mental health, musculoskeletal)? @ -COVID 19, RSV, influenza, pneumonia, acute bronchitis, URI, this list is not all inclusive EKG interpreted by me (3pts min.). @ -None X-rays interpreted by me (1pt min.). @ -None done CT interpreted by me (1pt min.). @ -None done U/S interpreted by me (1pt. min.). @ -None done What testing was considered but not performed or refused? (CT, X-rays, U/S, labs)? Why? @ -None What meds were considered but not given or refused? Why? @ -None Did you discuss the management of the patient with other professionals (professionals i.e. Dr., PA, COMMUNICATIONS PROFESSOR, lab, RT, psych nurse, social work associate, press assistant and feeder, teacher, property disposal officer, top case assembler)? Give summary @ -No Was smoking cessation discussed for >3mins.? @ -No Was critical care preformed (if so, how long)? @ -No Were there social determinants of health that impacted care today? How? (Homelessness, low income, unemployed, alcoholism, drug addiction, transportation, low edu. Level, literacy, decrease access to med. care, [facility], rehab)? @ -No Was there de-escalation of care discussed even if they declined (Discuss DNR or withdrawal of care, Hospice)? DNR status @ -No What co-morbidities impacted this encounter? (DM, HTN, Smoking, COPD, CAD, Cancer, CVA, ARF, Chemo, Hep., AIDS, mental health diagnosis, sleep apnea, morbid obesity)? @ -None Was patient admitted / discharged? Hospital course, mention meds given and route, prescriptions, significant lab abnormalities, going to OR and other pertinent info. @ -Discharge. 23 year old female presenting with complaints of right ear pain, congestion, dry cough. Patient's right ear TM is noted to be erythematous, edematous, with purulence consistent with otitis media. Patient has an erythematous posterior oropharynx with no signs of tonsillomegaly or tonsillar erythema. She will be treated for otitis media with amoxicillin. case discussed with Dr. Garcia Undiagnosed new problem with uncertain prognosis? @ -No Drug Therapy requiring intensive monitoring for toxicity (Heparin, Nitro, Insulin, Cardizem)? @ -No Were any procedures done? @ -No Diagnosis/symptom? @ -otitis media Acute, or Chronic, or Acute on Chronic? @ -acute Uncomplicated (without systemic symptoms) or Complicated (systemic symptoms)? @ -uncomplicated Side effects of treatment? @ -No Exacerbation, Progression, or Severe Exacerbation? @ -No Poses a threat to life or bodily function? How? (Chest pain, [place], [place], pneumonia, PE, COPD, DKA, ARF, appy, cholecystitis, CVA, Diverticulitis, Homicidal, Suicidal, threat to staff... and all critical care pts) @ -No Disposition Clinical Impression: Otitis media Disposition: HOME SELF-CARE Condition: Good Instructions (If sedation given, give patient instructions): Ear Infection (ED) Additional Instructions: Please return to the Emergency Department if symptoms worsen or any other concerns. Prescriptions: Amoxicillin 875 mg PO Q12HR #20 tablet Is patient prescribed a controlled substance at d/c from ED?: No Referrals: None,Stated [Primary Care Provider] - 1-2 days Time of Disposition: 08:46
[2024-09-25 09:56] LABS: RSV Not Detected (Not Detectd)
[2024-09-25 10:05] VITALS: BP 112/80; PULSE 72
== END 2024-09-25 10:06 | disposition home or self-care (01) ==
LOC: EC 07:54
DX: H66.91 Otitis media, unspecified, right ear (principal); F17.200 Nicotine dependence, unspecified, uncomplicated; Z91.013 Allergy to seafood; Z88.8 Allergy status to other drugs, medicaments and biological substances
CPT/HCPCS: 87636; 87651; 99283